=== PATIENT | female | born 1985 | race Two or more races ===

== ENCOUNTER 2020-08-16 14:32 | Outpatient (REF) | payer OTHER, SELFPAY ==
--- NOTE | ~2020-08-16 | XR_ITS ---
EXAMINATION: XR SACRUM AND COCCYX XR LUMBAR SPINE XR HIP, RIGHT XT FOOT, LEFT XR ELBOW, RT CLINICAL INFORMATION: Pain after fall. COMPARISON: None TECHNIQUE: Lumbar spine 3 views. Sacrum/coccyx 3 views. Right hip 2 views. Left foot 3 views. Right elbow 4 views. FINDINGS: SACRUM AND COCCYX: There is normal symmetry of bilateral SI joints. No bony abnormality seen. There is no fracture involving the sacrum or the coccyx. The soft tissues are normal. LUMBAR SPINE: There is normal lumbar lordosis. The vertebral heights and alignment is normal. There is loss of L4-L5 and L5-S1 disc levels with mild ventral spondylosis. No visible acute fracture, dislocation or lytic process seen. The paravertebral soft tissues are normal. RIGHT HIP: There is no visible acute fracture, dislocation, bony erosive changes or soft tissue swelling. LEFT FOOT: The ankle mortise and subtalar joints are normal. There is a small calcaneal heel and retrocalcaneal enthesophytes. The soft tissues are normal. RIGHT ELBOW: There is no visible acute fracture, dislocation or subluxation seen. No bony erosive changes. There is small enthesophytes along the anteromedial coronoid process of the ulna. The soft tissues are normal. XR/XR sacrum coccyx min 2V IMPRESSION: 1. Unremarkable sacrum and coccyx. 2. Mild degenerative disc changes at L4-L5 and L5-S1 disc levels. No acute fracture. Mild ventral spondylosis lumbar spine. 3. Unremarkable right hip exam. 4. Small calcaneal heel and retrocalcaneal enthesophytes, left foot. No acute fracture or dislocation. 5. Small bone fragments medial to the coronoid process of the ulna likely old injury. No acute fracture seen.
--- NOTE | ~2020-08-16 | XR_ITS ---
EXAMINATION: XR SACRUM AND COCCYX XR LUMBAR SPINE XR HIP, RIGHT XT FOOT, LEFT XR ELBOW, RT CLINICAL INFORMATION: Pain after fall. COMPARISON: None TECHNIQUE: Lumbar spine 3 views. Sacrum/coccyx 3 views. Right hip 2 views. Left foot 3 views. Right elbow 4 views. FINDINGS: SACRUM AND COCCYX: There is normal symmetry of bilateral SI joints. No bony abnormality seen. There is no fracture involving the sacrum or the coccyx. The soft tissues are normal. LUMBAR SPINE: There is normal lumbar lordosis. The vertebral heights and alignment is normal. There is loss of L4-L5 and L5-S1 disc levels with mild ventral spondylosis. No visible acute fracture, dislocation or lytic process seen. The paravertebral soft tissues are normal. RIGHT HIP: There is no visible acute fracture, dislocation, bony erosive changes or soft tissue swelling. LEFT FOOT: The ankle mortise and subtalar joints are normal. There is a small calcaneal heel and retrocalcaneal enthesophytes. The soft tissues are normal. RIGHT ELBOW: There is no visible acute fracture, dislocation or subluxation seen. No bony erosive changes. There is small enthesophytes along the anteromedial coronoid process of the ulna. The soft tissues are normal. XR/XR elbow RT min 3V IMPRESSION: 1. Unremarkable sacrum and coccyx. 2. Mild degenerative disc changes at L4-L5 and L5-S1 disc levels. No acute fracture. Mild ventral spondylosis lumbar spine. 3. Unremarkable right hip exam. 4. Small calcaneal heel and retrocalcaneal enthesophytes, left foot. No acute fracture or dislocation. 5. Small bone fragments medial to the coronoid process of the ulna likely old injury. No acute fracture seen.
--- NOTE | ~2020-08-16 | XR_ITS ---
EXAMINATION: XR SACRUM AND COCCYX XR LUMBAR SPINE XR HIP, RIGHT XT FOOT, LEFT XR ELBOW, RT CLINICAL INFORMATION: Pain after fall. COMPARISON: None TECHNIQUE: Lumbar spine 3 views. Sacrum/coccyx 3 views. Right hip 2 views. Left foot 3 views. Right elbow 4 views. FINDINGS: SACRUM AND COCCYX: There is normal symmetry of bilateral SI joints. No bony abnormality seen. There is no fracture involving the sacrum or the coccyx. The soft tissues are normal. LUMBAR SPINE: There is normal lumbar lordosis. The vertebral heights and alignment is normal. There is loss of L4-L5 and L5-S1 disc levels with mild ventral spondylosis. No visible acute fracture, dislocation or lytic process seen. The paravertebral soft tissues are normal. RIGHT HIP: There is no visible acute fracture, dislocation, bony erosive changes or soft tissue swelling. LEFT FOOT: The ankle mortise and subtalar joints are normal. There is a small calcaneal heel and retrocalcaneal enthesophytes. The soft tissues are normal. RIGHT ELBOW: There is no visible acute fracture, dislocation or subluxation seen. No bony erosive changes. There is small enthesophytes along the anteromedial coronoid process of the ulna. The soft tissues are normal. XR/XR hip RT min 2V IMPRESSION: 1. Unremarkable sacrum and coccyx. 2. Mild degenerative disc changes at L4-L5 and L5-S1 disc levels. No acute fracture. Mild ventral spondylosis lumbar spine. 3. Unremarkable right hip exam. 4. Small calcaneal heel and retrocalcaneal enthesophytes, left foot. No acute fracture or dislocation. 5. Small bone fragments medial to the coronoid process of the ulna likely old injury. No acute fracture seen.
--- NOTE | ~2020-08-16 | XR_ITS ---
EXAMINATION: XR SACRUM AND COCCYX XR LUMBAR SPINE XR HIP, RIGHT XT FOOT, LEFT XR ELBOW, RT CLINICAL INFORMATION: Pain after fall. COMPARISON: None TECHNIQUE: Lumbar spine 3 views. Sacrum/coccyx 3 views. Right hip 2 views. Left foot 3 views. Right elbow 4 views. FINDINGS: SACRUM AND COCCYX: There is normal symmetry of bilateral SI joints. No bony abnormality seen. There is no fracture involving the sacrum or the coccyx. The soft tissues are normal. LUMBAR SPINE: There is normal lumbar lordosis. The vertebral heights and alignment is normal. There is loss of L4-L5 and L5-S1 disc levels with mild ventral spondylosis. No visible acute fracture, dislocation or lytic process seen. The paravertebral soft tissues are normal. RIGHT HIP: There is no visible acute fracture, dislocation, bony erosive changes or soft tissue swelling. LEFT FOOT: The ankle mortise and subtalar joints are normal. There is a small calcaneal heel and retrocalcaneal enthesophytes. The soft tissues are normal. RIGHT ELBOW: There is no visible acute fracture, dislocation or subluxation seen. No bony erosive changes. There is small enthesophytes along the anteromedial coronoid process of the ulna. The soft tissues are normal. XR/XR lumbar spine 2-3V IMPRESSION: 1. Unremarkable sacrum and coccyx. 2. Mild degenerative disc changes at L4-L5 and L5-S1 disc levels. No acute fracture. Mild ventral spondylosis lumbar spine. 3. Unremarkable right hip exam. 4. Small calcaneal heel and retrocalcaneal enthesophytes, left foot. No acute fracture or dislocation. 5. Small bone fragments medial to the coronoid process of the ulna likely old injury. No acute fracture seen.
--- NOTE | ~2020-08-16 | XR_ITS ---
EXAMINATION: XR SACRUM AND COCCYX XR LUMBAR SPINE XR HIP, RIGHT XT FOOT, LEFT XR ELBOW, RT CLINICAL INFORMATION: Pain after fall. COMPARISON: None TECHNIQUE: Lumbar spine 3 views. Sacrum/coccyx 3 views. Right hip 2 views. Left foot 3 views. Right elbow 4 views. FINDINGS: SACRUM AND COCCYX: There is normal symmetry of bilateral SI joints. No bony abnormality seen. There is no fracture involving the sacrum or the coccyx. The soft tissues are normal. LUMBAR SPINE: There is normal lumbar lordosis. The vertebral heights and alignment is normal. There is loss of L4-L5 and L5-S1 disc levels with mild ventral spondylosis. No visible acute fracture, dislocation or lytic process seen. The paravertebral soft tissues are normal. RIGHT HIP: There is no visible acute fracture, dislocation, bony erosive changes or soft tissue swelling. LEFT FOOT: The ankle mortise and subtalar joints are normal. There is a small calcaneal heel and retrocalcaneal enthesophytes. The soft tissues are normal. RIGHT ELBOW: There is no visible acute fracture, dislocation or subluxation seen. No bony erosive changes. There is small enthesophytes along the anteromedial coronoid process of the ulna. The soft tissues are normal. XR/XR foot LT min 3V IMPRESSION: 1. Unremarkable sacrum and coccyx. 2. Mild degenerative disc changes at L4-L5 and L5-S1 disc levels. No acute fracture. Mild ventral spondylosis lumbar spine. 3. Unremarkable right hip exam. 4. Small calcaneal heel and retrocalcaneal enthesophytes, left foot. No acute fracture or dislocation. 5. Small bone fragments medial to the coronoid process of the ulna likely old injury. No acute fracture seen.
== END 2020-08-16 14:33 | disposition home or self-care (01) ==
LOC: HO.XRAY 14:32
PROVIDERS: Absent Provider Internal Medicine Geriatric Medicine; PCP Internal Medicine Geriatric Medicine; Visit Provider Nurse Practitioner
DX: M25.551 Pain in right hip (principal); M54.5 Low back pain; M25.521 Pain in right elbow; M79.672 Pain in left foot
CPT/HCPCS: 72100; 72220; 73080; 73502; 73630

== ENCOUNTER 2021-07-23 16:13 | Outpatient (REF) | payer OTHER, SELFPAY ==
--- NOTE | ~2021-07-23 | XR_ITS ---
EXAMINATION: XR SHOULDER, RIGHT CLINICAL INFORMATION: Pain COMPARISON: Previous x-ray from 2018 TECHNIQUE: AP external rotation, Grashey, scapular Y, and axillary views of the right shoulder. FINDINGS: The bones and soft tissues are normal. No fracture. Glenohumeral and acromioclavicular alignment is anatomic with normal joint space. No abnormal soft tissue calcifications. XR/XR shoulder RT min 2V IMPRESSION: Normal right shoulder.
--- NOTE | ~2021-07-23 | XR_ITS ---
EXAMINATION: XR LUMBOSACRAL SPINE CLINICAL INFORMATION: Pain COMPARISON: Previous x-ray July 2020 TECHNIQUE: Three views of the lumbosacral spine. FINDINGS: Bone alignment is normal. No fracture or dislocation is seen. There is degenerative disc disease at L1-L2, L4-L5 and L5-S1. Paraspinal soft tissues are unremarkable. XR/XR lumbar spine 2-3V IMPRESSION: Multilevel degenerative disc disease.
--- NOTE | ~2021-07-23 | XR_ITS ---
EXAMINATION: BILATERAL FOOT X-RAY CLINICAL INFORMATION: Pain COMPARISON: Left ankle x-ray September 2012 TECHNIQUE: 3 views each foot FINDINGS: Bone alignment is normal. No acute fracture or dislocation is seen. The joint spaces are normal. There are bilateral calcaneal spurs. XR/XR foot RT min 3V IMPRESSION: Bilateral calcaneal spurs.
--- NOTE | ~2021-07-23 | XR_ITS ---
EXAMINATION: BILATERAL FOOT X-RAY CLINICAL INFORMATION: Pain COMPARISON: Left ankle x-ray September 2012 TECHNIQUE: 3 views each foot FINDINGS: Bone alignment is normal. No acute fracture or dislocation is seen. The joint spaces are normal. There are bilateral calcaneal spurs. XR/XR foot LT min 3V IMPRESSION: Bilateral calcaneal spurs.
== END 2021-07-23 16:14 | disposition home or self-care (01) ==
LOC: HO.XRAY 16:13
PROVIDERS: PCP Internal Medicine Geriatric Medicine; Visit Provider Internal Medicine Geriatric Medicine
DX: M25.511 Pain in right shoulder (principal); M79.671 Pain in right foot; M79.672 Pain in left foot; M79.605 Pain in left leg; M54.50 Low back pain, unspecified
CPT/HCPCS: 72100; 73030; 73630

== ENCOUNTER 2021-08-30 12:36 | Emergency (ER) | payer OTHER, SELFPAY ==
--- NOTE | ~2021-08-30 | XR_ITS ---
EXAMINATION: XR CHEST CLINICAL INFORMATION: Asthma COMPARISON: 12/30/2016 TECHNIQUE: Frontal view of the chest was obtained. FINDINGS: No acute finding. No obvious failure or infiltrate. There is no effusion. Lung munoz are grossly clear. The cardiac silhouette is within normal limits. No effusion. XR/XR chest 1V IMPRESSION: No acute finding
[2021-08-30 12:46] VITALS: BP 140/79; PULSE 73; RESP 18; TEMP 36.5; O2SAT 97; BMI 47.9
--- NOTE | 2021-08-30 13:46 | ED_ITS ---
HPI - URI/Sore Throat General Chief Complaint: Upper Respiratory Symptoms Stated Complaint: covid + body aches Time Seen by Provider: 08/30/21 13:46 Source: patient Mode of arrival: ambulatory Limitations: no limitations History of Present Illness HPI Narrative: 35-year-old female who tested COVID positive 2 days ago on August 28, presents for cough, headache, nausea, dizziness, diarrhea, sore throat, lost of taste and smell. Her symptoms started 4 days ago, on August 26. Patient has been using her nebulizer, she last used it 2 hours ago. Past medical history includes fibromyalgia, asthma, obesity, gastric bypass Related Data Previous Rx's Medication Instructions Recorded dexamethasone 6 mg tablet 6 mg PO DAILY 5 days #5 tabs 08/30/21 Allergies Allergy/AdvReac Type Severity Reaction Status Date / Time lactose Allergy Unknown Gastrointestinal Verified 08/30/21 12:45 Upset No Known Allergies Allergy Unverified 12/08/19 16:43 [No Known Allergies*] latex Allergy Unknown Gastrointestinal Uncoded 08/30/21 12:45 Upset Review of Systems Constitutional: Constitutional: Reports body ache(s), Reports chills, Reports fatigue, Denies fever(s), Reports headache(s), Denies malaise and Reports weakness Eyes: Eyes: Denies blurry vision and Denies diplopia ENT: Denies vertigo, Denies dizziness, Denies otalgia, Reports headache(s), Denies mouth pain, Denies post nasal drip, Denies sinus pain, Denies sinus pressure, Denies sore throat and Denies throat swelling Cardiovascular: Cardiovascular: Denies chest pain, Denies syncope, Denies leg edema, Denies lightheadedness, Denies Loss of Consciousness, Denies palpitations and Denies dyspnea Respiratory: Respiratory: Denies chest congestion, Denies cough and Denies dyspnea Gastrointestinal: Gastrointestinal: Denies abdominal pain, Denies hematochezia, Denies constipation, Reports diarrhea, Reports nausea and Denies vomiting Musculoskeletal: Musculoskeletal: Reports no additional musculoskeletal complaints Neurologic: Denies confusion, Denies vertigo, Denies dizziness, Denies syncope, Reports headache(s) and Reports weakness Psychiatric: Psychiatric: Denies anxiety, Denies confusion and Denies depression Endocrine: Endocrine: Reports fatigue and Denies palpitations Allergic/Immunologic: Allergic/Immunologic: Denies throat swelling PMFSH Social History Social History Advance Directives: Yes Advance Directives Information Provided: Yes Advance Directives on File: No Physical Exam Vital Signs: Vital Signs: Last Vital Signs Temp 97.7 F 08/30/21 12:46 Pulse 73 08/30/21 12:46 Resp 18 08/30/21 12:46 BP 140/79 H 08/30/21 12:46 Pulse Ox 97 08/30/21 12:46 O2 Del Method 08/30/21 12:46 BMI result Body Mass Index 47.9 Const: General: No confusion Nutritional Appearance: well nourished Orientation/consciousness: No confusion Limitations: no limitations HEENT: Head: Yes normal to inspection, Yes normocephalic and Yes atraumatic Ears: hearing grossly normal bilaterally, external ears normal, TM's normal bilaterally and EAC's normal General nose exam: Normal external nose present Face and sinus: Yes normal facial exam and Yes sinuses nontender Mouth: Normal oral and palatal mucosa present Throat: Yes posterior oropharynx normal Eyes: Conjunctivae: conjunctivae normal Pupils: Equal, round and reactive pupils present EOM: EOMs intact bilaterally Neck: Neck: Yes full ROM, Yes no lymphadenopathy and Yes supple Resp: Effort & Inspection: normal respiratory effort and able to speak in complete sentences Auscultation: no crackles, no rales, no rhonchi, wheezes and diminished lung sounds Cardio: Rate: regular rate Rhythm: regular rhythm Heart sounds: S1 normal heart sound present and S2 normal heart sound present GI: Inspection: Yes normal to inspection Palpation (GI): Soft to palpation, nontender, no guarding and not rigid Percussion: Yes normal to percussion Auscultation: normal bowel sounds Skin: General skin exam: no rashes or lesions noted Neuro: General: No confusion Cranial nerves: Yes Equal, round and reactive pupils present Extrem: General: Yes normal to inspection and Yes full ROM Psych: Appearance: grossly normal Affect: normal affect Attitude: cooperative Thought process: Normal thought process present Course Course Course Narrative: 35-year-old female presents after testing COVID positive at home for worsening COVID symptoms. On exam, patient has stable vitals, is satting 97% on room air respiration rate 18, is afebrile. Patient has diffuse wheezes on expiration after having a nebulizer treatment just 2 hours prior chest x-ray is negative referred patient to [facility] for monoclonal antibody treatment, prescribe dexamethasone and counseled patient to continue using her nebulizer every 4 hours, push fluids, Tylenol gave return precautions of worsening shortness of breath, chest pain, worsening symptoms FINDINGS: No acute finding. No obvious failure or infiltrate. There is no effusion. Lung munoz are grossly clear. The cardiac silhouette is within normal limits. No effusion. XR/XR chest 1V IMPRESSION: No acute finding ? Discharge Plan Discharge Clinical Impression: COVID-19, Acute bronchospasm Patient Disposition: Home, Self-Care Instructions: Bronchospasm (ED), COVID-19 (Coronavirus Disease 2019) (ED) Additional Instructions: I have prescribed dexamethasone to her pharmacy, please fill it and start it today. I have alsoreferred you to [email or web address], a company that does monoclonal antibody infusions for COVID. They should be calling you this afternoon because we faxed a form to them with your information. However if you do not hear from them by 16:00 today I want you to call them at [facility] [phone] please continue to use your albuterol into your nebulizer every 4 hours while you are awake. Please push fluids and take Tylenol. Please return to emergency room if you have chest pain, shortness of breath, or any other new or concerning symptoms Prescriptions: New dexamethasone 6 mg tablet 6 mg PO DAILY 5 Days Qty: 5 0RF Interventions: ED Discharge Assessment Last Done: 08/30/21 14:18 Discharge Date/Time: 08/30/21 14:20
== END 2021-08-30 14:20 | disposition home or self-care (01) ==
PROVIDERS: Emergency Provider Emergency Medicine; PCP Internal Medicine Geriatric Medicine
DX: U07.1 COVID-19 (principal); J98.01 Acute bronchospasm
CPT/HCPCS: 71045; 99283

== ENCOUNTER 2021-10-29 13:53 | Outpatient (REF) | payer OTHER, SELFPAY ==
--- NOTE | ~2021-10-29 | XR_ITS ---
EXAMINATION: XR CHEST CLINICAL INFORMATION: History COVID. Moderate persistent asthma. COMPARISON: Chest radiographs 08/30/2021, 12/30/2016 TECHNIQUE: 2 views of the chest were obtained. FINDINGS: No hyperinflation, airspace consolidation, groundglass opacity. No coarsening of the bronchiolar markings. The costophrenic sulci are clear. The heart is normal in size. The hilar and mediastinal contours and bony structures are unremarkable. XR/XR chest 2V IMPRESSION: Unremarkable examination.
--- NOTE | ~2021-10-29 | XR_ITS ---
EXAMINATION: XR LUMBOSACRAL SPINE CLINICAL INFORMATION: Radiculopathy COMPARISON: Radiographs lumbar spine 07/23/2021 TECHNIQUE: Three views of the lumbosacral spine. FINDINGS: Normal lumbar segmentation with 5 nonrib-bearing lumbar vertebrae of normal height and normal lumbar lordosis. There is no lumbar vertebral compression, spondylolisthesis, destructive process. Again, there are degenerative disc changes L1-L2, L4-L5, and L5-S1 with disc narrowing and vertebral spurring. No erosive change. The SI joints and visualized sacrum are unremarkable. XR/XR lumbar spine 2-3V IMPRESSION: -Degenerative disc changes L1-L2, L4-L5, and L5-S1 similar to prior exam 07/23/2021. -No vertebral compression, spondylolisthesis, or destructive process.
== END 2021-10-29 13:54 | disposition home or self-care (01) ==
LOC: HO.XRAY 13:53
PROVIDERS: PCP Internal Medicine Geriatric Medicine; Visit Provider Internal Medicine Geriatric Medicine
DX: M54.10 Radiculopathy, site unspecified (principal); J45.40 Moderate persistent asthma, uncomplicated; Z86.16 Personal history of COVID-19
CPT/HCPCS: 71046; 72100

== ENCOUNTER 2021-11-29 16:16 | Emergency (ER) | payer OTHER, SELFPAY ==
[2021-11-29 16:24] VITALS: BP 109/42; PULSE 68; RESP 18; TEMP 36.6; O2SAT 99; BMI 48.0
--- NOTE | 2021-11-29 19:01 | ED.GENADULT ---
HPI - General Adult General Chief complaint: Back Pain/Injury Stated complaint: back/neck pain, multiple complaint Time Seen by Provider: 11/29/21 19:00 Source: patient Mode of arrival: ambulatory Limitations: no limitations History of Present Illness HPI narrative: Patient is a 36 year old female presenting to the emergency department today with upper back pain that radiates from her neck and into her left shoulder. Patient states that she was moving boxes yesterday and now she is having this pain today. Patient states that she has sciatic back pain as well but that's normal for her. Patient denies any dizziness, lightheadedness, abdominal pain, nausea, vomiting, fever, chills, blurry vision, double vision, loss of vision, chest pain, difficulty breathing, shortness of breath, night sweats, pain with urination, increased urinary frequency, increased urinary urgency, blood in her urine or stool, syncope or a near syncopal episode, recent trauma or falls, bowel incontinence, bladder incontinence, bowel retention, bladder retention, or any other complaints at this time. Onset (ago): hour(s) Location: neck, back, left and upper extremity Radiation: back and extremity Severity: mild Severity scale (1-10): 2 Quality: aching Pain Consistency: intermittent Relieving factors: none Exacerbating factors: movement Associated symptoms: denies other symptoms Treatments prior to arrival: none Related Data Previous Rx's Medication Instructions Recorded dexamethasone 6 mg tablet 6 mg PO DAILY 5 days #5 tabs 08/30/21 cyclobenzaprine 5 mg tablet 5 mg PO TID PRN cervical 11/29/21 radiculopathy 7 days #21 tabs Allergies Allergy/AdvReac Type Severity Reaction Status Date / Time lactose Allergy Unknown Gastrointestinal Verified 08/30/21 12:45 Upset No Known Allergies Allergy Unverified 12/08/19 16:43 [No Known Allergies*] latex Allergy Unknown Gastrointestinal Uncoded 08/30/21 12:45 Upset Review of Systems Constitutional: Constitutional: Reports no additional constitutional complaints, Denies chills, Denies fever(s) and Denies night sweats Eyes: Eyes: Reports no additional eye complaints, Denies blurry vision, Denies change in vision, Denies diplopia, Denies eye discharge, Denies loss of vision and Denies eye pain ENT: Denies dizziness and Reports neck pain Cardiovascular: Cardiovascular: Reports no additional cardiovascular complaints, Denies chest pain, Denies lightheadedness, Denies Loss of Consciousness and Denies dyspnea Respiratory: Respiratory: Reports no additional respiratory complaints and Denies dyspnea Gastrointestinal: Gastrointestinal: Reports no additional gastrointestinal complaints, Denies abdominal pain, Denies melena, Denies hematochezia, Denies change in bowel habits and Denies change in stool character Genitourinary: Genitourinary: Denies hematuria, Denies urinary frequency, Denies dysuria, Denies urinary incontinence, Denies urinary hesitancy and Denies urinary urgency Musculoskeletal: Musculoskeletal: Reports no additional musculoskeletal complaints, Reports back pain, Reports neck pain, Denies numbness and Denies tingling Comments: left shoulder pain Neurologic: Denies dizziness, Denies loss of vision, Denies numbness and Denies tingling Psychiatric: Psychiatric: Reports no additional psychiatric complaints Endocrine: Endocrine: Reports no additional endocrine complaints Hematologic/Lymphatic: Hematologic/Lymphatic: Reports no additional hematologic/lymphatic complaints Allergic/Immunologic: Allergic/Immunologic: Reports no additional allergic/immunologic complaints [facility] Past Medical History Attestation statement: The following information was validated with the patient. Source: old records reviewed Social History Social History Advance Directives: No Advance Directives Information Provided: No Physical Exam ED Vital Signs: Vital Signs - 24 hr 11/29/21 16:24 Temperature 97.8 F Pulse Rate 68 Respiratory Rate 18 Blood Pressure 109/42 L Pulse Oximetry 99 Oxygen Delivery Method Room Air BMI result Body Mass Index 48.0 Const General: cooperative, no acute distress, alert and awake Nutritional Appearance: well nourished Orientation/consciousness: patient oriented x3 Limitations: no limitations [facility] Head: Yes normal to inspection and Yes atraumatic Ears: hearing grossly normal bilaterally and external ears normal General nose exam: Normal external nose present, no nasal discharge noted and no epistaxis Face and sinus: Yes normal facial exam, No abrasion and No laceration Mouth: Normal oral and palatal mucosa present, no drooling and no muffled voice Eyes General: appearance normal, both eyes and all related structures Periorbital: periorbital findings normal Eyelids: Yes eyelids normal Conjunctivae: conjunctivae normal Pupils: Equal, round and reactive pupils present EOM: EOMs intact bilaterally Neck Neck: Yes normal visual inspection, Yes full ROM and Yes no lymphadenopathy Chest Chest palpation & inspection: normal inspection of the chest Resp Effort & Inspection: normal respiratory effort and able to speak in complete sentences Auscultation: clear to auscultation bilaterally Cardio Rate: regular rate Rhythm: regular rhythm GI Inspection: Yes normal to inspection Neuro General: patient oriented x3 and moves all extremities Cranial nerves: Yes Equal, round and reactive pupils present Cognition (Neuro): normal cognition Motor exam (neuro): 5/5 motor strength present throughout Sensory Exam: Normal double simultaneous stimulation for sensation Coordination: [id number] test normal Extrem General: Yes normal to inspection, Yes full ROM and Yes capillary refill normal Psych Appearance: grossly normal Mental Status: mental status grossly normal Affect: normal affect Attitude: cooperative Thought process: Normal thought process present Thought content: Normal thought content present Insight: Good insight present (Psych) Medical Decision Making MDM Narrative Medical decision making narrative: Patient is a 36 year old female presenting to the emergency department today with upper back pain, neck pain, and left shoulder pain. Patient's physical exam was unremarkable. Patient's clinical presentation is most consistent with cervical radiculopathy. I explained my physical exam findings as well as all test results to the patient. I answered all questions asked by the patient. Patient received PO Flexeril, PO Ativan, and IM Toradol which she stated helped her symptoms significantly. I stressed the importance of the patient taking her medication as prescribed. I stressed the importance of the patient following up with her primary care provider and a corporate real estate specialist. I stressed the importance of the patient returning to the emergency department immediately if her symptoms were to worsen or if she were to develop any dizziness, shortness of breath, difficulty breathing, chest pain, blurry vision, loss of vision, nausea, vomiting, abdominal pain, fever, chills, back pain, or any other complaints. Patient verbalized agreement and understanding with this treatment plan and discharge. Differential Diagnosis Differential Diagnosis: cervical radiculopathy Medical Records Medical records reviewed: Yes I reviewed the patient's medical records. Discharge Plan Discharge Clinical Impression: Cervical radiculopathy Patient Disposition: Home, Self-Care Instructions: Cervical Radiculopathy (ED) Additional Instructions: Follow up with your primary care provider and a corporate real estate specialist. Return to the emergency department immediately if your symptoms worsen or if you develop any dizziness, shortness of breath, difficulty breathing, chest pain, blurry vision, loss of vision, nausea, vomiting, abdominal pain, fever, chills, back pain, or any other complaints. Prescriptions: New cyclobenzaprine 5 mg tablet 5 mg PO TID PRN (Reason: cervical radiculopathy) 7 Days Qty: 21 0RF No Action dexamethasone 6 mg tablet 6 mg PO DAILY 5 Days Qty: 5 0RF Referrals: [facility] [Provider Group] Name,MD Tucker [Primary Care Provider] - Print Language: Japanese
[2021-11-29] MEDS: Cyclobenzaprine HCl 5 MG TABLET PO (19:42)
[2021-11-29] MEDS: LORazepam 1 MG TABLET 2 MG PO (19:43)
[2021-11-29] MEDS: Ketorolac Tromethamine 15 MG/ML VIAL IM (19:43)
== END 2021-11-29 19:54 | disposition home or self-care (01) ==
PROVIDERS: Emergency Provider Emergency Medicine; PCP Internal Medicine Geriatric Medicine
DX: M54.12 Radiculopathy, cervical region (principal); M54.50 Low back pain, unspecified; M54.2 Cervicalgia; Z79.899 Other long term (current) drug therapy
CPT/HCPCS: 96372; 99283; 99284; J1885

== ENCOUNTER 2021-12-24 07:47 | Emergency (ER) | payer OTHER, SELFPAY ==
--- NOTE | ~2021-12-24 | XR_ITS ---
EXAMINATION: XR CHEST CLINICAL INFORMATION: Left scapular pain COMPARISON: October 2021. TECHNIQUE: 2 views of the chest were obtained. FINDINGS: No significant abnormality is noted involving the heart, lungs, mediastinum, bony thorax or soft tissues. Thoracic spondylitic change and degenerative disc space narrowing again noted. XR/XR chest 2V IMPRESSION: Unremarkable examination. No significant change since previous examination.
[2021-12-24 08:05] VITALS: BP 152/89; PULSE 78; RESP 18; TEMP 36.3; O2SAT 99; BMI 48.0
--- OUTSIDE RECORDS SUMMARY | 2021-12-24 08:46 | XMS_ITS | Continuity of Care Document ---
:1985 Author Organization [facility] Address [address] [place] [address]- Care Team Providers Name Role Phone Name Tucker PEARSON Primary Care Physician [place] [facility] [place] - 05/24/[address] [address]- [facility] Encounter Diagnosis Right knee sprain (Final) - 05/24/19 Right ankle sprain (Final) - 05/24/19 Discharge Disposition: A-D/C Home Attending Physician: Alireza Nicolas MD Admitting Physician: Alireza Nicolas MD Referring Physician: Not on Staff, Referring MD Allergies, Adverse Reactions, Alerts Substance Reaction Severity Status NKA Active Medications Acetaminophen = 325 mg, By Mouth, 0 Refills, Maintenance, 11/07/15 13:37:08 Start Date: 11/07/15 Status: OrderedAlbuterol 0 Refills, Maintenance Start Date: 04/24/11 Status: OrderedBetamethasone Dipropionate 0.05% Topical Topically, 2 times a day, 0 Refills, Maintenance Start Date: 11/07/15 Status: Orderedcalcium and vitamin D combination 600 mg-200 u oral tablet 1 tablet, By Mouth, 2 times a day, 0 Refills, Maintenance, 11/07/15 13:38:57 Start Date: 11/07/15 Status: OrderedFerrous Sulfate ER 325 mgs, By Mouth, Daily, Refills 0, Maintenance, 11/07/15 13:39:31 Start Date: 11/07/15 Status: OrderedFlovent HFA 220 mcg/inh inhalation aerosol 1 puffs, Inhalation, 2 times a day, # 12 Gm, 0 Refills, Maintenance, 11/07/15 13:40:31, Aerosol Start Date: 11/07/15 Status: OrderedFolic Acid = 800 mcg, By Mouth, Daily, 0 Refills, Maintenance, 11/07/15 13:41:07 Start Date: 11/07/15 Status: OrderedHydroCORTisone 2.5% Topical Topically, 2 times a day, 0 Refills, Maintenance Start Date: 11/07/15 Status: Orderedibuprofen 600 mg oral tablet 600 mg, 1, tablet, By Mouth, Every 6 to 8 hours, PRN, with food or milk, # 24 tablet, Refills 0, Tot. Refills 0, Maintenance, Pain , Moderate, 05/24/19 19:51:00 EST, Route to Pharmacy Electronically, [facility]/pharmacy #[id number], 164, cm, 05/24/19 18:32:00 EST,... Start Date: 05/24/19 Status: Orderedphentermine 15 mg oral capsule 1 capsule = 15 mg, By Mouth, Daily in AM, 0 Refills, Maintenance, 01/04/18 9:13:25 EDT Start Date: 01/04/18 Status: OrderedPriLOSEC OTC 20 mg oral delayed release tablet 1 tablet = 20 mg, By Mouth, 2 times a day, # 60 tablet, 0 Refills, Maintenance, 08/03/13 6:56:51, ECTablet Start Date: 08/03/13 Status: Ordered Problem List Condition Effective Dates Status Health Status Informant Anxiety and depression per Active pt.(Confirmed) Asthma(Confirmed) Active Depression per pt.(Confirmed) Active Depression(Confirmed) Active Diabetes type 2, controlled(Confirmed) Active Fatty liver(Confirmed) Active Morbid obesity(Confirmed) Active Reflux per pt.(Confirmed) Active Sleep apnea(Confirmed) Active Results Radiology Reports Exam Date Time Procedure Performing Provider Status 05/24/19 7:35 PM Knee 1 or 2 Views Right Hudson Martines; Auth (Ve rified) Notes:(Knee 1 or 2 Views Right) Reason For Exam: with Pain;TraumaRESULT: Knee 1 or 2 Views Right Knee 1 or 2 Views Right, 3 views Indication: Pain after trauma. COMPARISON: None. FINDINGS: Mild osteoarthritic changes of the lateral compartment. Deformity of the proximal fibular diaphysis consistent with remote injury. No definite acute fracture. No malalignment. IMPRESSION: No acute osseous injury identified. WSN: [id number] Dictated By: Christiano Olsen MD Dictated Date/Time: 05/24/19 7:41 pm Reviewed By: Christiano Olsen MD Signed By: Christiano Olsen MD Signed Date/Time: 05/24/19 7:41 pm Transcribed By: REJI Transcribed Date/Time: 05/24/19 7:39 pm Exam Date Time Procedure Performing Provider Status 05/24/19 7:35 PM Ankle Min 3 Views Right Hudson Martines; Auth (Ve rified) Notes:(Ankle Min 3 Views Right) Reason For Exam: with Pain;TraumaRESULT: Ankle Min 3 Views Right Ankle Min 3 Views Right Indication: Pain after trauma. COMPARISON: None. FINDINGS: Normal alignment. Soft tissue swelling overlying the lateral malleolus. The lateral view demonstrates a few well-corticated ossific densities which do not appear acute. No definite acute fracture. IMPRESSION: Soft tissue swelling without definite acute fracture. WSN: [id number] Dictated By: Christiano Olsen MD Dictated Date/Time: 05/24/19 7:38 pm Reviewed By: Christiano Olsen MD Signed By: Christiano Olsen MD Signed Date/Time: 05/24/19 7:38 pm Transcribed By: REJI Transcribed Date/Time: 05/24/19 7:37 pm Vital Signs Most recent to oldest [Reference Range]: 1 2 Height 164 cm 164 cm (05/24/19 6:32 PM) (05/24/19 6:26 PM) Oxygen Saturation [94-100 %] 98 % (05/24/19 6:32 PM) Pulse Rate [55-90 bpm] 88 bpm (05/24/19 6:32 PM) Blood Pressure [90-138/55-84 mm Hg] 124/70 mm Hg (05/24/19 6:32 PM) Respiratory Rate [16-30 br/min] 18 br/min (05/24/19 6:32 PM) Temperature [96.8-100.4 DegF] 98.0 DegF (05/24/19 6:32 PM) Mode of Delivery (Oxygen) Room air (05/24/19 6:32 PM) Temperature Route Oral (05/24/19 6:32 PM) Social History Social History Type Response Smoking Status Former smoker; Other: patien t states she quit smoking in 2011; entered on: 03/13/15 Sex
--- OUTSIDE RECORDS SUMMARY | 2021-12-24 08:46 | XMS_ITS | Continuity of Care Document ---
:1985 Author Organization [facility] Address Unavailable , Care Team Providers Name Role Phone Name Tucker PEARSON Primary Care Physician Encounter [facility] [place] Date(s): 02/06/21 - 03/08/21 [facility] Allergies, Adverse Reactions, Alerts Substance Reaction Severity [...] 0 Refills, Maintenance Start Date: 11/07/15 Status: OrderedhydrOXYzine hydrochloride 10 mg oral tablet 2 tablet = 20 mg, By Mouth, 4 times a day, PRN for anxiety, # 80 tablet, 0 Refills, Maintenance, 05/27/19 9:36:00 EST, Tablet Start Date: 05/27/19 Status: Orderedibuprofen 600 mg oral tablet 600 mg, 1, tablet, By Mouth, Every 6 to 8 hours, PRN, with food or milk, # 24 tablet, Refills 0, Tot. Refills 0, Maintenance, Pain , Moderate, 05/24/19 19:51:00 EST, Route to Pharmacy Electronically, [facility]/pharmacy #[id number], 164, cm, 05/24/19 18:32:00 EST,... Start [...] 08/03/13 6:56:51, ECTablet Start Date: 08/03/13 Status: OrderedZoloft 100 mg oral tablet 2 tablet = 200 mg, By Mouth, Daily, # 30 tablet, 0 Refills, Maintenance, 05/27/19 9:35:00 EST, Tablet Start Date: 05/27/19 Status: Ordered Problem List Condition Effective Dates Status Health Status Informant Anxiety and depression per Active pt.(Confirmed) Asthma(Confirmed) Active Morbid obesity with BMI of 40.0-44.9, Active adult(Confirmed) Depression per pt.(Confirmed) Active Depression(Confirmed) Active Diabetes type 2, controlled(Confirmed) Active Fatty liver(Confirmed) Active S/P gastric bypass(Confirmed) Active Reflux per pt.(Confirmed) Active Sleep apnea(Confirmed) Active Social History Social History Type Response Smoking Status Former smoker; Other: nimisha fish states she quit smoking in 2011; entered on: 03/13/15 Sex
--- OUTSIDE RECORDS SUMMARY | 2021-12-24 08:46 | XMS_ITS | Continuity of Care Document ---
:1985 Author Organization [facility] Address [address] [place] [address] Drive [address] [place] [address]- Care Team Providers Name Role Phone Name Tucker PEARSON Primary Care Physician [place] [facility] [id number] Date(s): 02/29/20 - 03/07/[address] [place], [place] [address] Attending Physician: Rui JARAMILLO,RD,LDN, Lyudmila Vann Allergies, Adverse Reactions, Alerts Substance Reaction Severity [...] 05/24/19 19:51:00 EST, Route to Pharmacy Electronically, [facility]/pharmacy #[id number], 164, cm, 05/24/19 18:32:00 EST,... Start [...]
--- OUTSIDE RECORDS SUMMARY | 2021-12-24 08:46 | XMS_ITS | Continuity of Care Document ---
:1985 Author Organization [facility] Address [address] [place] [address] Drive [address] [place] [address]- Care Team Providers Name Role Phone Name Tucker PEARSON Primary Care Physician Encounter [facility] [place] Date(s): 05/27/19 - 06/03/[address] [place] [address]- [facility] Encounter Diagnosis Morbid obesity with BMI of 40.0-44.9, adult (Discharge Diagnosis) - 05/27/19 S/P gastric bypass (Discharge Diagnosis) - 05/27/19 Attending Physician: London Jj Referring Physician: Name Tucker PEARSON Allergies, Adverse Reactions, Alerts Substance Reaction Severity [...] 05/24/19 19:51:00 EST, Route to Pharmacy Electronically, [facility]/pharmacy #[id number], 164, cm, 05/24/19 18:32:00 EST,... [...] Reflux per pt.(Confirmed) Active Sleep apnea(Confirmed) Active Diagnosis Diagnosis Type Effective Dates Health Status Clinical In formant Service S/P gastric Discharge 05/27/19 bypass Diagnosis Morbid obesity Discharge 05/27/19 with BMI of Diagnosis 40.0-44.9, adult Vital Signs Most recent to oldest [Reference Range]: 1 Height 164 cm (05/27/19 9:27 AM) Weight 120.2 kg (05/27/19 9:27 AM) Pulse Rate [55-90 bpm] 71 bpm (05/27/19 9:27 AM) Body Mass Index [18.5-24.99] 44.69 *>HHI* (05/27/19 9:27 AM) Blood Pressure [90-138/55-84 mm Hg] 123/78 mm Hg (05/27/19 9:27 AM) Respiratory Rate [16-30 br/min] 15 br/min *L* (05/27/19 9:27 AM) Temperature [96.8-100.4 DegF] 97.6 DegF (05/27/19 9:27 AM) Blood pressure sites Arm, left (05/27/19 9:27 AM) Temperature Route Temporal (05/27/19 9:27 AM) Weight Obtained Via Standing scale (05/27/19 9:27 AM) Social History Social History Type Response Smoking Status Former smoker; Other: nimisha t states she quit smoking in 2011; entered on: 03/13/15 Sex
--- OUTSIDE RECORDS SUMMARY | 2021-12-24 08:46 | XMS_ITS | Continuity of Care Document ---
:1985 Author Organization [facility] Address Unavailable , Care Team Providers Name Role Phone Name Tucker PEARSON Primary Care Physician Encounter [facility] [place] Date(s): 02/06/21 - 03/08/21 [facility] Attending Physician: Rigoberto Limon Admitting Physician: Rigoberto Limon Referring Physician: Rigoberto Limon Allergies, Adverse Reactions, Alerts Substance Reaction Severity [...] 05/24/19 19:51:00 EST, Route to Pharmacy Electronically, [facility]/pharmacy #[id number], 164, cm, 05/24/19 18:32:00 EST,... Start [...]
--- OUTSIDE RECORDS SUMMARY | 2021-12-24 08:46 | XMS_ITS | Continuity of Care Document ---
:1985 Author Organization [facility] Address [address] [place] [address] Drive [address] [place] [address]- Care Team Providers Name Role Phone Name Tucker PEARSON Primary Care Physician Encounter [facility] Date(s): 06/08/19 - 10/06/[address] [place] [address]- [facility] Attending Physician: London Jj Referring Physician: Name [...] 05/24/19 19:51:00 EST, Route to Pharmacy Electronically, [facility]/pharmacy #[id number], 164, cm, 05/24/19 18:32:00 EST,... [...]
--- OUTSIDE RECORDS SUMMARY | 2021-12-24 08:46 | XMS_ITS | Continuity of Care Document ---
:1985 Author Organization [facility] Address [address] [place] [address] Drive [address] [place] [address]- Care Team Providers Name Role Phone Name Tucker PERASON Primary Care Physician Encounter [facility] [place] Date(s): 11/29/19 - 12/06/[address] [place] [address]- [facility] Attending Physician: Rui JARAMILLO,RD,LDN, Lyudmila Vann Allergies, [...] 05/24/19 19:51:00 EST, Route to Pharmacy Electronically, [facility]/pharmacy #[id number], 164, cm, 05/24/19 18:32:00 EST,... Start [...]
--- OUTSIDE RECORDS SUMMARY | 2021-12-24 08:46 | XMS_ITS | Continuity of Care Document ---
:1985 Author Organization [facility] Address [address] [place] [address] Drive [address] [place] [address]- Care Team Providers Name Role Phone Name Tucker PEARSON Primary Care Physician [place] [facility] [place] 05/27/19 - 06/03/[address] [place] [address]- [facility] Attending Physician: Rui JARAMILLO,RD,LDN, Lyudmila Vann Referring Physician: Name Tucker PEARSON Allergies, Adverse [...] 05/24/19 19:51:00 EST, Route to Pharmacy Electronically, [facility]/pharmacy #[id number], 164, cm, 05/24/19 18:32:00 EST,... Start [...]
--- OUTSIDE RECORDS SUMMARY | 2021-12-24 08:47 | XMS_ITS | Continuity of Care Document ---
:1985 Author Organization [address] [place] [address]- Care Team Providers Name Role Phone Name Tucker PEARSON Primary Care Physician Encounter [facility] [place] Date(s): 08/01/20 - 08/08/[address] [place] [id number] Attending Physician: Rui JARAMILLO,RD,RONALDON, Lyudmila Vann Allergies, Adverse Reactions, Alerts Substance [...]
--- OUTSIDE RECORDS SUMMARY | 2021-12-24 08:47 | XMS_ITS | Continuity of Care Document ---
:1985 Author Organization [facility] Address Unavailable , Care Team Providers Name Role Phone Name Tucker PEARSON Primary Care Physician En[place] [facility] [place] R [id number] Date(s): 02/06/21 - 02/13/21 [facility] Attending Physician: Rui MS,RD,RONALDON, Lyudmila Vann Allergies, Adverse Reactions, Alerts Substance [...] EST, Route to Pharmacy Electronically, [facility]/pharmacy #[id number], 164, cm, 05/24/19 18:32:00 [...]
--- OUTSIDE RECORDS SUMMARY | 2021-12-24 08:47 | XMS_ITS | Continuity of Care Document ---
:1985 Author Organization [facility] Address [address] [place] [address] Drive [address] [place] [address]- Care Team Providers Name Role Phone Name Tucker PEARSON Primary Care Physician Encounter [facility] [place] Date(s): 09/06/19 - 09/13/[address] [place] [address]- [facility] Attending Physician: Rui MS,RD,LDN, Lyudmila Vann Allergies, Adverse Reactions, Alerts Substance [...] 05/24/19 19:51:00 EST, Route to Pharmacy Electronically, [facility]/pharmacy #[id number], 164, cm, 05/24/19 18:32:00 EST,... [...]
--- NOTE | 2021-12-24 08:52 | PC.NURSE ---
Pt ambulates with brisk steady gait, reports neck and upper back pain that is worse when she elevates arms. brought to tx area.
--- NOTE | 2021-12-24 08:53 | ED.NECK ---
HPI - Neck Pain/Injury General Chief Complaint: Neck Pain/Injury Stated Complaint: sob, chest pain, cant lift arm w/o pain Time Seen by Provider: 12/24/21 08:07 Source: patient Mode of arrival: ambulatory Limitations: no limitations Related Data Previous Rx's Medication Instructions Recorded dexamethasone 6 mg tablet 6 mg PO DAILY 5 days #5 tabs 08/30/21 cyclobenzaprine 5 mg tablet 5 mg PO TID PRN cervical 11/29/21 radiculopathy 7 days #21 tabs Allergies Allergy/AdvReac Type Severity Reaction Status Date / Time No Known Allergies Allergy Unverified 12/08/19 16:43 [No Known Allergies*] [facility] Past Medical History Attestation statement: The following information was validated with the patient. Social History Social History Advance Directives: No Advance Directives Information Provided: No Physical Exam Vital Signs: Vital Signs: Last Vital Signs Temp 97.4 F 12/24/21 08:05 Pulse 78 12/24/21 08:05 Resp 18 12/24/21 08:05 BP 152/89 H 12/24/21 08:05 Pulse Ox 99 12/24/21 08:05 O2 Del Method 12/24/21 08:05 BMI result Body Mass Index 48.0 Discharge Plan Discharge Prescriptions: No Action dexamethasone 6 mg tablet 6 mg PO DAILY 5 Days Qty: 5 0RF cyclobenzaprine 5 mg tablet 5 mg PO TID PRN (Reason: cervical radiculopathy) 7 Days Qty: 21 0RF
--- NOTE | 2021-12-24 09:31 | ED_ITS ---
HPI - Neck Pain/Injury General Chief Complaint: Neck Pain/Injury Stated Complaint: sob, chest pain, cant lift arm w/o pain Time Seen by Provider: 12/24/21 08:07 Source: patient Mode of arrival: ambulatory History of Present Illness HPI Narrative: 36-year-old female with no significant past medical history presented to ED complaining of left scapular/upper back pain radiating to neck and left upper extremity x4-5 days. Pain worse w/movement and palpation. Admits was recently seen and treated in our ED for similar symptoms, had little relief with Flexeril. Denies known injury, trauma, fall. Reports intermittent numbness/paresthesias. Denies headache, dizziness, vision change/loss, weakness, chest pain, shortness of breath, fever, urinary incontinence/retention. Denies taking anticoagulation MD complaint: neck pain and upper back pain Onset (ago): day(s) Related Data Previous Rx's Medication Instructions Recorded dexamethasone 6 mg tablet 6 mg PO DAILY 5 days #5 tabs 08/30/21 cyclobenzaprine 5 mg tablet 5 mg PO TID PRN cervical 11/29/21 radiculopathy 7 days #21 tabs acetaminophen 500 mg tablet 500 mg PO Q6H PRN fever or pain 12/24/21 (Tylenol Extra Strength) #14 tabs diazepam 2 mg tablet (Valium) 2 mg PO BID PRN muscle spasm 3 12/24/21 days #6 tabs ketorolac 10 mg tablet 10 mg PO TID PRN pain 5 days #15 12/24/21 tabs lidocaine 5 % topical patch 1 patch topical DAILY PRN pain #30 12/24/21 (Lidoderm) ea Allergies Allergy/AdvReac Type Severity Reaction Status Date / Time No Known Allergies Allergy Unverified 12/08/19 16:43 [No Known Allergies*] Review of Systems Review of Systems: Constitutional: No Fever, No Chills, No Fatigue, No Malaise ENT/Mouth: No Ear Pain, No Nasal Congestion, No Hoarseness, No sore throat, No Rhinorrhea, No Swallowing Difficulty Eyes: No Eye Pain, No Swelling, No Redness, No Vision Changes Cardiovascular: No Chest Pain, No SOB, No Dyspnea on Exertion Respiratory: No Cough, No Sputum, No Dyspnea Gastrointestinal: No Nausea, No Vomiting, No Diarrhea, No Constipation, No Abdominal pain Genitourinary: No irregular bleeding, No Dysuria, No Urinary Frequency, No Hematuria, No Urinary Incontinence/retention, No Flank Pain Musculoskeletal: + joint pain, + Myalgias, No Joint Swelling Skin: No Skin Lesions, No rash Neuro: No Weakness, + Numbness, + Paresthesias, No Loss of Consciousness, No Dizziness, No Headache Yes all other systems are reviewed and are negative Constitutional: Constitutional: Reports as per HPI Neurologic: Denies Abnormal speech present COUNTS INCLUDE 234 BEDS AT THE [facility] Past Medical History Attestation statement: The following information was validated with the patient. Social History Social History Advance Directives: No Advance Directives Information Provided: No Physical Exam Vital Signs: Vital Signs: Last Vital Signs Temp 97.4 F 12/24/21 08:05 Pulse 78 12/24/21 08:05 Resp 18 12/24/21 08:05 BP 152/89 H 12/24/21 08:05 Pulse Ox 99 12/24/21 08:05 O2 Del Method 12/24/21 08:05 BMI result Body Mass Index 48.0 Const: General: cooperative, healthy appearing and no acute distress Orientation/consciousness: patient oriented x3 Limitations: no limitations HEENT: Head: Yes normal to inspection and Yes atraumatic Ears: hearing grossly normal bilaterally General nose exam: Normal external nose present Face and sinus: Yes normal facial exam Eyes: General: appearance normal, both eyes and all related structures EOM: EOMs intact bilaterally Neck: Other: No midline cervical spinous tenderness. + left trapezius muscle tenderness to palpation. Limited ROM of neck secondary to pain Neck: Yes normal visual inspection, Yes no lymphadenopathy, Yes no meningeal signs, Yes trachea midline and Yes supple Resp: Effort & Inspection: normal respiratory effort and no respiratory distress Auscultation: clear to auscultation bilaterally, no crackles, no rales and no rhonchi Cardio: Rate: regular rate Heart sounds: S1 normal heart sound present and S2 normal heart sound present Peripheral pulses: Peripheral pulses 2+ throughout Back/Spine/Pelvis: Other: No midline thoracic/lumbar spinous tenderness/step-off or deformity. +L scapular tenderness to palpation. No overlying cellulitis/ecchymosis or rash Skin: Rashes: no rashes Wounds: no wounds Neuro: General: patient oriented x3, gait normal, tone normal, moves all extremities, no meningeal signs and no focal motor deficits Cranial nerves: Yes CN's II-XII intact bilaterally Cognition (Neuro): normal cognition Speech: No Abnormal speech present Gait exam (Neuro): Normal gait present Motor exam (neuro): 5/5 motor strength present throughout Extrem: Other: Limited ROM to left upper extremity secondary to pain General: Yes normal to inspection Course Course Course Narrative: XR chest 2V IMPRESSION: Unremarkable examination. No significant change since previous examination. > patient with mild improvement after p.o. Valium/IM Toradol. > additionally will give p.o. Oxycodone and plan for discharge home with PCP follow-up MDM - Neck Pain/Injury MDM Narrative Medical decision making narrative: 36-year-old female with no significant past medical history presented to ED complaining of left scapular/upper back pain radiating to neck and left upper extremity x4-5 days. On exam VSS, NAD, nontoxic appearing, physical exam as abo ve, no midline spinous tenderness throughout, no red flag symptoms, neurovascularly intact, pain reproducible with palpation, left upper extremity and neck movement. Concern for MSK pain/spasming vs radiculopathy. Low suspicion for ACS, PE, pneumonia, cord compression, or cauda equina. Low suspicion for CVT or arterial dissection Plan: CXR, EKG, p.o. Valium, IM Toradol, Lidoderm patch Differential Diagnosis Differential diagnosis: Likely disc disorder of cervical region, cervical radiculopathy, torticollis and strain of neck muscle Medical Records Attestation: I reviewed the patient's medical records. Lab Data Attestation: I reviewed the patient's lab results. Discharge Plan Discharge Clinical Impression: Pain of left scapula, Musculoskeletal back pain Patient Disposition: Home, Self-Care Instructions: Back Pain (ED) Additional Instructions: Your x-ray is unremarkable Your pain is likely musculoskeletal Valium is a muscle relaxer, take at night as it makes you drowsy, do not drive, drink alcohol, or operate machinery while taking it Toradol as an anti-inflammatory / pain medication, take with food Lidoderm patches are numbing patches, apply to painful area In addition take Tylenol at home If symptoms persist or worsen, pain becomes unbearable, you developed urinary retention or incontinence, or weakness return to the ED Prescriptions: New ketorolac 10 mg tablet 10 mg PO TID PRN (Reason: pain) 5 Days Qty: 15 0RF diazepam [Valium] 2 mg tablet 2 mg PO BID PRN (Reason: muscle spasm) 3 Days Qty: 6 0RF acetaminophen [Tylenol Extra Strength] 500 mg tablet 500 mg PO Q6H PRN (Reason: fever or pain) Qty: 14 0RF lidocaine [Lidoderm] 5 % adhesive patch,medicated 1 patch topical DAILY MDD remove after 12 hours PRN (Reason: pain) Qty: 30 0RF Rx Instructions: leave on most painful area for up to 12 hrs No Action dexamethasone 6 mg tablet 6 mg PO DAILY 5 Days Qty: 5 0RF cyclobenzaprine 5 mg tablet 5 mg PO TID PRN (Reason: cervical radiculopathy) 7 Days Qty: 21 0RF Referrals: Name,MD Tucker [Primary Care Provider] - 3 days
[2021-12-24] MEDS: Ketorolac Tromethamine 30 MG/ML VIAL IM (09:42)
[2021-12-24] MEDS: Lidocaine 4 % Patch ADH..PATCH 1 PATCH TRANSDERMA (09:44)
[2021-12-24] MEDS: diazePAM 2 MG TABLET 5 MG PO (09:53)
[2021-12-24] MEDS: oxyCODONE HCl Immed Release 5 MG TABLET PO (11:20)
== END 2021-12-24 11:23 | disposition home or self-care (01) ==
PROVIDERS: Emergency Provider Emergency Medicine; PCP Internal Medicine Geriatric Medicine
DX: M25.512 Pain in left shoulder (principal); M54.50 Low back pain, unspecified; R06.02 Shortness of breath; M54.2 Cervicalgia; R07.89 Other chest pain; Z79.899 Other long term (current) drug therapy
CPT/HCPCS: 71046; 96372; 99283; 99284; J1885

== ENCOUNTER 2021-12-31 07:26 | Outpatient (REF) | payer OTHER, SELFPAY ==
--- NOTE | ~2021-12-31 | MR_ITS ---
EXAMINATION: MR CERVICAL SPINE WITHOUT CONTRAST CLINICAL INFORMATION: 36-year-old with complaints of the right-sided neck pain with stiffness and right hand numbness. Radiculopathy, cervical region. Technical Note: Images were degraded by motion artifact. COMPARISON: None. TECHNIQUE: MRI of the cervical spine was obtained using routine sequences without contrast. FINDINGS: Alignment: Slight lower cervical levocurvature noted. Normal lordotic curvature is maintained. Craniocervical Junction/C1-C2 Articulations: There is mild retrolisthesis at the left C1-C2 facet joint, which is nonspecific but could be secondary to head rotation in the scanner. Otherwise the atlantooccipital joints and C1-C2 articulations are unremarkable. Visualized Intracranial Structures: Within normal limits. Vertebral Bodies: Normal height. Disc Spaces and Endplates: [id number] intervertebral disc volume loss at C5-C6 with disc desiccation noted. Mild disc volume loss at C4-C5 with disc desiccation noted. No significant spondylosis. Endplates appear intact. Bone Marrow: No significant marrow-replacing process or bone marrow edema. C2-C3: No disc herniation or canal stenosis. No significant DJD or neural foraminal stenosis. C3-C4: No disc herniation or canal stenosis. No significant DJD or neural foraminal stenosis. C4-C5: Shallow broad-based central disc protrusion with minimal indentation of the ventral thecal sac without cord impingement or canal stenosis. There is uncovertebral spurring, right more than left without significant facet arthrosis. [id number] right-sided neural foraminal stenosis is noted. C5-C6: Broad-based posterior disc osteophyte complex asymmetric to the right, with effacement of the ventral dural sac asymmetric to the right slightly deforming the ventral spinal cord on the right, with mild spinal canal stenosis asymmetric to the right. No significant DJD or neural foraminal stenosis. C6-C7: Very small central disc protrusion with minimal indentation of the ventral thecal sac without cord impingement or canal stenosis. Mild bilateral uncinate process spurring without significant neural foraminal stenosis. C7-T1: Broad-based right paramedian disc protrusion with mild indentation of the ventral thecal sac on the right without cord impingement or canal stenosis. No significant DJD or neural foraminal stenosis. T1-T2: Posterolateral disc osteophyte complex noted bilaterally right more than left with the mild encroachment on the ventral dural sac on both sides of the midline without cord impingement, with ligamentum flavum thickening without central canal stenosis. There is narrowing of the right lateral recess and slight narrowing of the right neural foramen. There is a small right paramedian disc protrusion at T3-T4 with mild right-sided facet arthropathy. Spinal Cord: The cervical and visualized upper thoracic spinal cord is normal in morphology, caliber and signal intensity. Extracranial Soft Tissues: There is moderate mucosal thickening in the sphenoid sinus which is partially visualized. Minor mucosal thickening in the maxillary sinuses noted bilaterally. Otherwise the visualized soft tissue and paravertebral neck structures are grossly unremarkable in appearance within the limitations of the exam. MR/MR cervical spine wo con IMPRESSION: 1. Discogenic degenerative changes at C4-C5 and C5-C6 as discussed above, with the broad-based disc osteophyte complex asymmetric to the right at C5-C6 with mild central canal stenosis and mild right-sided ventral cord deformity/impingement. 2. Other levels of the disc osteophyte complex and disc protrusion as detailed by level above without cord impingement or significant canal stenosis. 3. Minor DJD with [id number] right-sided neural foraminal stenosis at C4-C5. 4. Paranasal sinus mucosal thickening incidentally noted.
== END 2021-12-31 07:27 | disposition home or self-care (01) ==
LOC: HO.MRI 07:26
PROVIDERS: Visit Provider Internal Medicine
DX: M54.12 Radiculopathy, cervical region (principal)
CPT/HCPCS: 72141

== ENCOUNTER 2022-01-10 11:49 | Outpatient (REF) | payer OTHER, SELFPAY ==
--- NOTE | ~2022-01-10 | XR_ITS ---
EXAMINATION: XR PELVIS CLINICAL INFORMATION: Pain COMPARISON: Right hip radiographs 08/16/2020 TECHNIQUE: AP view of the pelvis. FINDINGS: No acute fracture or dislocation. Joint spaces are maintained. Calcified phleboliths in the pelvis. Desiccated stool within the rectum. XR/XR pelvis 1-2V IMPRESSION: No acute osseous abnormality.
== END 2022-01-10 11:50 | disposition home or self-care (01) ==
LOC: HO.XRAY 11:49
PROVIDERS: Absent Provider Internal Medicine Geriatric Medicine; PCP Internal Medicine Geriatric Medicine; Visit Provider Internal Medicine
DX: M25.551 Pain in right hip (principal); M25.552 Pain in left hip
CPT/HCPCS: 72170

== ENCOUNTER → 2022-01-22 10:52 | Outpatient (BNVA) | payer OTHER, SELFPAY | PROVIDERS: PCP Internal Medicine Geriatric Medicine; Visit Provider Internal Medicine | DX: R05.3 Chronic cough (principal); J68.3 Other acute and subacute respiratory conditions due to chemicals, gases, fumes and vapors; U09.9 Post COVID-19 condition, unspecified; E66.01 Morbid (severe) obesity due to excess calories; Z68.42 Body mass index [BMI] 45.0-49.9, adult | CPT/HCPCS: 99202 ==

== ENCOUNTER → 2022-02-21 08:25 | Outpatient (BNVA) | payer OTHER, SELFPAY | PROVIDERS: PCP Internal Medicine Geriatric Medicine; Referring Provider Internal Medicine Geriatric Medicine; Visit Provider Physician Assistant | DX: E66.01 Morbid (severe) obesity due to excess calories (principal); K21.9 Gastro-esophageal reflux disease without esophagitis; M79.7 Fibromyalgia; F41.9 Anxiety disorder, unspecified; F32.A Depression, unspecified; J45.909 Unspecified asthma, uncomplicated; G47.33 Obstructive sleep apnea (adult) (pediatric); Z99.89 Dependence on other enabling machines and devices; Z68.42 Body mass index [BMI] 45.0-49.9, adult | CPT/HCPCS: 99202 ==

== ENCOUNTER 2022-02-27 08:00 | Outpatient (REF) | payer OTHER, SELFPAY ==
--- NOTE | 2022-02-27 09:29 | PFT_ITS ---
Forced vital capacity 93%, FEV1 87%, FEV1/FVC ratio is 79. [id number] 68% and MVV 86%. Post bronchodilator therapy, there is significant improvement in FEV1 and [id number]. Total lung capacity 93%, residual volume 97%, and diffusion capacity 79%. CONCLUSION: Mild obstructive airway disorder with excellent response to bronchodilator therapy. This finding is consistent with bronchial asthma. Clinical correlation is recommended. MD MICKEY Perales/CHRIS / [phone]
== END 2022-02-27 08:01 | disposition home or self-care (01) ==
LOC: HO.RESP 08:00
PROVIDERS: Visit Provider Internal Medicine
DX: J68.3 Other acute and subacute respiratory conditions due to chemicals, gases, fumes and vapors (principal); R05.3 Chronic cough; U09.9 Post COVID-19 condition, unspecified
CPT/HCPCS: 94060; 94727; 94729

== ENCOUNTER → 2022-03-05 11:34 | Outpatient (BNVA) | payer OTHER, SELFPAY | PROVIDERS: PCP Internal Medicine Geriatric Medicine; Visit Provider Internal Medicine | DX: R05.3 Chronic cough (principal); U09.9 Post COVID-19 condition, unspecified; J68.3 Other acute and subacute respiratory conditions due to chemicals, gases, fumes and vapors; E66.01 Morbid (severe) obesity due to excess calories; Z68.42 Body mass index [BMI] 45.0-49.9, adult | CPT/HCPCS: 99212 ==

== ENCOUNTER 2022-07-02 10:07 | Outpatient (REF) | payer OTHER, SELFPAY ==
--- NOTE | ~2022-07-02 | XR_ITS ---
EXAMINATION: XR HAND, RIGHT CLINICAL INFORMATION: Pain COMPARISON: Right hand radiographs 10/19/2011 TECHNIQUE: 3 views of the hand FINDINGS: No fracture or dislocation. Joint spaces are maintained. No cortical erosion. Soft tissues are unremarkable. XR/XR hand RT min 3V IMPRESSION: No acute osseous abnormality.
== END 2022-07-02 10:08 | disposition home or self-care (01) ==
LOC: HO.XRAY 10:07
PROVIDERS: Visit Provider Emergency Medicine
DX: M79.641 Pain in right hand (principal); J45.909 Unspecified asthma, uncomplicated; J68.3 Other acute and subacute respiratory conditions due to chemicals, gases, fumes and vapors; E66.01 Morbid (severe) obesity due to excess calories; Z91.81 History of falling; Z79.899 Other long term (current) drug therapy; Z98.84 Bariatric surgery status
CPT/HCPCS: 73130; 99212

== ENCOUNTER → 2022-09-10 10:31 | Outpatient (BNVA) | payer OTHER, SELFPAY | PROVIDERS: PCP Internal Medicine Geriatric Medicine; Visit Provider Internal Medicine | DX: J45.20 Mild intermittent asthma, uncomplicated (principal); E66.01 Morbid (severe) obesity due to excess calories; Z68.42 Body mass index [BMI] 45.0-49.9, adult; G47.33 Obstructive sleep apnea (adult) (pediatric) | CPT/HCPCS: 99212 ==

== ENCOUNTER 2023-02-18 10:56 | Outpatient (REF) | payer OTHER, SELFPAY ==
[2023-02-18 13:22] LABS: MANUAL DIFF FLAG NO
[2023-02-18 13:43] LABS: Basophils Percent Auto 0.4 % (0-2); Hematocrit 37.2 % (37.0-47.0); Hemoglobin 11.6 g/dl (12.0-16.0); Imm Gran Abs Auto 0.01 X10*3/uL (0.00-0.03); Imm Gran Pct Auto 0.2 % (0.0-0.4); Lymphocytes Absolute Auto 1.6 X10*3/uL (1.2-4.9); Lymphocytes Percent Auto 30.3 % (20-40); Mean Corpuscular HGB Conc 31.2 g/dl (31.0-35.0); Mean Corpuscular Hemoglobin 23.1 pg (27.0-33.0); Mean Corpuscular Volume 74.1 fL (80.0-98.0); Monocytes Absolute Auto 0.5 X10*3/uL (0.1-1.2); Monocytes Percent Auto 9.4 % (2-11); Neutrophils Absolute Auto 3.1 x10*3/uL (2.0-8.3); Neutrophils Percent Auto 59.7 % (45-73); Platelet Count 144 X10*3/uL (160-400); Red Blood Count 5.02 X10*6/uL (4.20-5.50); Red Cell Distribution Width 17.2 % (11.0-16.0); White Blood Count 5.2 X10*3/uL (4.8-10.8)
[2023-02-18 14:09] LABS: Alanine Aminotransferase 13 U/L (0-31); Albumin Level 3.9 g/dL (3.5-5.0); Alkaline Phosphatase 65 U/L (39-117); Anion Gap 9 (12-20); Aspartate Amino Transferase 15 U/L (5-31); Bilirubin Total 0.7 mg/dL (0.0-1.0); Blood Urea Nitrogen 20 mg/dL (9-16); Calcium 9.1 mg/dL (8.4-10.2); Carbon Dioxide 26 mmol/L (22-29); Chloride 107 mmol/L (96-108); Cholesterol 157 mg/dL (<200); Estimated Glomerular Filt Rate > 60; Glucose Random 94 mg/dL (60-115); HDL Cholesterol 57 mg/dL (>40); LDL Cholesterol Calculated 86 mg/dL (<100); Sodium 138 mmol/L (135-145); Total Protein 7.1 g/dL (6.5-8.0); Triglycerides 70 mg/dL (<150)
[2023-02-18 14:31] LABS: TSH reflex Free T4 1.24 uIU/mL (0.32-4.0)
== END 2023-02-18 10:57 | disposition home or self-care (01) ==
LOC: HO.HHCL 10:56
PROVIDERS: Visit Provider Internal Medicine Geriatric Medicine
DX: E66.01 Morbid (severe) obesity due to excess calories (principal); Z68.39 Body mass index [BMI] 39.0-39.9, adult
CPT/HCPCS: 36415; 80053; 80061; 84443; 85025

== ENCOUNTER 2023-02-24 10:40 | Outpatient (REF) | payer OTHER, SELFPAY ==
[2023-02-24 14:11] LABS: Iron 31 mcg/dL (30-160); Percent Iron Saturation 8 % (15-50); Total Iron Binding Capacity 392 mcg/dL (228-428); Unsaturated Iron Binding 361 ug/dL
[2023-02-24 14:14] LABS: Ferritin 8 ng/mL (10-122)
[2023-02-24 14:23] LABS: Folate 8.1 ng/mL (> or = 4.0); Vitamin B12 385 pg/mL (200-900)
== END 2023-02-24 10:41 | disposition home or self-care (01) ==
LOC: HO.HHCL 10:40
PROVIDERS: Visit Provider Internal Medicine Geriatric Medicine
DX: D64.9 Anemia, unspecified (principal); Z98.84 Bariatric surgery status
CPT/HCPCS: 36415; 82607; 82728; 82746; 83540

== ENCOUNTER 2023-03-04 10:35 | Outpatient (AMB) | payer OTHER, SELFPAY ==
[2023-03-04 10:40] VITALS: BP 118/62; PULSE 74; O2SAT 98; BMI 49.3
--- NOTE | 2023-03-04 10:40 | A.OFFVIS_ITS ---
Intake Vital Signs 03/04/23 10:40 Height 5 ft 4 in Weight 287 lb BMI 49.3 BP 118/62 Blood Pressure Location Lt brachial Position Sitting Pulse 74 Pulse Source Pulse Oximeter Pulse Oximetry (%) 98 Oxygen Delivery Method Room Air Intake Visit Reasons: Asthma Intake Note: pt is here for follow up and she is wheezing, coughing, shortness of breath x 3 weeks Actionscript Developer Required: No Allergies No Known Allergies [No Known Allergies*] Allergy (Verified 03/04/23 10:44) HPI Asthma HPI Details THIS 37 YEARS OLD FEMALE IS A KNOWN CASE OF MILD BRONCHIAL ASTHMA. SHE IS HERE. FOR 6 MONTHS FOLLOW-UP SINCE HER LAST VISIT SHE HAD GONE TO [place] AND GOT . SHE BROUGHT HER WITH HER OVER HERE, HE IS A PLEASANT GENTLEMAN BUT DEAF, UNDERSTANDS SIGN LANGUAGE. HER BREATHING HAS BEEN STABLE, BUT SHE DOES HAVE INTERMITTENT COUGH AND SOME WHEEZING. SHE ALSO GETS SHORT OF BREATH ON WALKING UP HILL OR CLIMBING STAIRS. SHE REMAINS GROSSLY OVERWEIGHT, HAS PAST HISTORY OF SLEEP APNEA, AT PRESENT SHE DENIES ANY ACTIVE SYMPTOMS. SHE STATES THAT SHE SLEEPS WELL AND NO ONE IS BEING BOTHERED BY HER SNORING. 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 Social History Alcohol intake: never Patient Tobacco Use Status: Former Tobacco user Review of Systems Const All systems reviewed & are unremarkable except as noted in HPI and below Eyes Reports no additional complaints ENT Reports nasal congestion (Mild off and on) Card Denies chest pain, Denies irregular heart rhythm and Denies leg edema Resp Reports as per HPI and Reports cough (INCREASED) GI Reports no additional complaints Reports no additional complaints Musc Reports back pain and Reports myalgias Skin/Breast Reports system reviewed and no additional complaints, except as documented Neuro Reports no additional complaints Psych Reports depression (Controlled with sertraline) Endo Reports no additional complaints Aller/Immun Reports no additional complaints Physical Exam Vital Signs: Last Vital Signs Pulse 74 03/04/23 10:40 BP 118/62 03/04/23 10:40 Pulse Ox 98 03/04/23 10:40 Oxygen Delivery Method Room Air 03/04/23 10:40 BMI result Body Mass Index 49.3 Const Other: Grossly obese General: comfortable, no acute distress, alert and awake Orientation/consciousness: patient oriented x3 HEENT Head: Yes normal to inspection General nose exam: No nasal polyps present and No nasal discharge present Face and sinus: Yes sinuses nontender Mouth: oropharynx normal Throat: Yes posterior oropharynx normal Eyes General: appearance normal, both eyes and all related structures Neck Neck: Yes normal visual inspection, Yes no lymphadenopathy, Yes trachea midline and Yes no JVD Thyroid: Thyroid normal Chest Chest palpation & inspection: normal inspection of the chest, normal palpation of entire chest wall and no tenderness Resp Other: Percussion note is resonant, breath sounds are equal on both sides but decreased over the lower lobe areas. On auscultation both lungs are clear and I did not hear any wheezes or rhonchi. Cardio Palpation: normal PMI Rate: regular rate Rhythm: regular rhythm Heart sounds: no gallops and no murmurs GI Palpation (GI): Soft to palpation, nontender, No hepatosplenomegaly present, no masses and Other GI palpation findings present (Abdomen is grossly obese and protuberant.) Auscultation: normal bowel sounds Back/Spine/Pelvis Thoracic/Lumbar Spine: thoracic and lumbar spine normal to inspection and thoraco-lumbar ROM limited Skin General skin exam: no rashes or lesions noted Neuro General: patient oriented x3 and no focal motor deficits Cranial nerves: Yes CN's II-XII intact bilaterally Extrem General: Yes normal to inspection, Yes no clubbing, cyanosis or edema and Yes no calf tenderness Psych Appearance: grossly normal and well kempt Speech and movement: Normal speech and movement present Results Reviewed Results Reviewed: Pulmonary function test on 02/27/2022. She has mild bronchial asthma which responded well to the bronchodilator therapy Assessment & Plan Assessment & Plan (1) Morbid obesity: Comment: Patient is known case of morbid obesity. S/P gastroplasty in 2012 at [facility], initially with good results. She has regained weight. But denies symptoms of obstructive sleep apt. She has not been active in the weight management program at [facility]. Code(s): E66.01 - Morbid (severe) obesity due to excess calories Plan: Patient is made aware of her morbid obesity. She needs to rejoin the weight management program. (2) Asthma: Comment: BRONCHIAL ASTHMA, INTERMITTENT, CURRENTLY IN ACTIVE AND STABLE. Code(s): J45.909 - Unspecified asthma, uncomplicated Plan: [place] : ADVISED TO RESTART WIXELA 250-50 IF SYMPTOMS GET ANY WORSE. USE PROAIR 2 PUFFS Q 4-6 HOURS ONLY P.R.N. FOR OUTDOORS. ALBUTEROL SOLUTION IN NEBULIZER Q 6 HOURS P.R.N. WHEN AT HOME (3) Bronchitis: Comment: CURRENTLY SHE DOES HAVE SCRATCHY THROAT WITH CONGESTED FEELING AND COUGH, SECONDARY TO ACUTE BRONCHITIS. Code(s): J40 - Bronchitis, not specified as acute or chronic Plan: Z-SUGAR 1 COURSE IS PRESCRIBED. Medications: New azithromycin For 250 mg dose pack: take 500 mg today (day 1), then 250 mg for 4 days (days 2-5) PO 6 tabs 0RF fluticasone propion-salmeterol 250-50 mcg/dose (Wixela Inhub) 1 inh inhalation BID 30 days 60 ea 2RF ASTHMA Coding Level of Care Code Est Pt Level 3 (55052) Diagnoses Morbid obesity E66.01 Asthma J45.909 Bronchitis J40
== END 2023-03-04 11:04 | disposition home or self-care (01) ==
PROVIDERS: PCP Internal Medicine Geriatric Medicine; Visit Provider Internal Medicine
DX: E66.01 Morbid (severe) obesity due to excess calories (principal); J45.909 Unspecified asthma, uncomplicated; J40 Bronchitis, not specified as acute or chronic
CPT/HCPCS: 99213

== ENCOUNTER → 2023-03-04 10:35 | Outpatient (BNVA) | payer OTHER, SELFPAY | PROVIDERS: PCP Internal Medicine Geriatric Medicine; Visit Provider Internal Medicine | DX: J45.909 Unspecified asthma, uncomplicated (principal); J40 Bronchitis, not specified as acute or chronic; E66.01 Morbid (severe) obesity due to excess calories; Z68.42 Body mass index [BMI] 45.0-49.9, adult | CPT/HCPCS: 99212 ==

== ENCOUNTER 2023-07-08 10:38 | Outpatient (AMB) | payer OTHER, SELFPAY ==
--- NOTE | 2023-07-08 10:48 | A.OFFVIS_ITS ---
Intake Vital Signs 07/08/23 10:49 Height 5 ft 4 in Weight 293 lb 3.437 oz BMI 50.3 BP 108/60 Blood Pressure Location Lt brachial Position Sitting Pulse 67 Pulse Oximetry (%) 99 Oxygen Delivery Method Room Air Intake Visit Reasons: Asthma Intake Note: pt is here for follow up and asthma is getting worse due to allergies. 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 Allergies No Known Allergies [No Known Allergies*] Allergy (Verified 07/08/23 11:17) Medication List - Last Reconciled 07/08/23 by Teodora Cordova MD acetaminophen (Tylenol Extra Strength) 500 mg PO Q6H PRN acetaminophen ER 650 mg PO Q12H albuterol sulfate 90 mcg/actuation (Ventolin HFA) 2 puffs inhalation Q4-6H PRN 30 days calcium citrate-vitamin D3 500 mg-12.5 mcg (500 unit) tabs PO docusate sodium 100 mg PO BID ferrous sulfate 324 mg PO DAILY fluticasone propion-salmeterol 250-50 mcg/dose (Wixela Inhub) 1 inh inhalation BID 30 days gabapentin 300 mg PO DAILY inhalational spacing device (Compact Space Chamber) As directed lorazepam 1 mg PO DAILY PRN omeprazole 20 mg PO DAILY sertraline 200 mg PO QAM zolpidem 5 mg PO BEDTIME PRN Do you need a note to return to daycare/school/sports/work: No HPI Asthma HPI Details THIS 37 YEARS OLD FEMALE IS GROSSLY OBESE, SHE WAS TRYING TO LOSE WEIGHT BUT THEN REGAINED BECAUSE SHE WAS NOT ABLE TO GET OUT AND WALK. SHE DENIES SYMPTOMS OF SLEEP APNEA. SHE DOES HAVE BRONCHIAL ASTHMA WHICH IS BEING TREATED WITH WIXELA 250-50 AND ALBUTEROL OFF AND ON . DENIES ANY ACTIVE WHEEZING. DOES GET SHORT OF BREATH WHEN SHE WALKS OUTDOORS OR CLIMBS STAIRS. HER MAIN COMPLAINT IS NASAL CONGESTION WITH POSTNASAL DRIP WHICH IS WORSE SINCE THE START OF SPRING. 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 Social History Alcohol intake: never Patient Tobacco Use Status: Former Tobacco user Review of Systems Const All systems reviewed & are unremarkable except as noted in HPI and below Eyes Reports no additional complaints ENT Reports nasal congestion (Mild off and on) Card Denies chest pain, Denies irregular heart rhythm and Denies leg edema Resp Reports as per HPI and Reports cough (INCREASED) GI Reports no additional complaints Reports no additional complaints Musc Reports back pain and Reports myalgias Skin/Breast Reports system reviewed and no additional complaints, except as documented Neuro Reports no additional complaints Psych Reports depression (Controlled with sertraline) Endo Reports no additional complaints Aller/Immun Reports no additional complaints Physical Exam Vital Signs: Last Vital Signs Pulse 67 07/08/23 10:49 BP 108/60 07/08/23 10:49 Pulse Ox 99 07/08/23 10:49 Oxygen Delivery Method Room Air 07/08/23 10:49 BMI result Body Mass Index 50.3 Const Other: Grossly obese General: comfortable, no acute distress, alert and awake Orientation/consciousness: patient oriented x3 HEENT Head: Yes normal to inspection General nose exam: No nasal polyps present and No nasal discharge present Face and sinus: Yes sinuses nontender Mouth: oropharynx normal Throat: Yes posterior oropharynx normal Eyes General: appearance normal, both eyes and all related structures Neck Neck: Yes normal visual inspection, Yes no lymphadenopathy, Yes trachea midline and Yes no JVD Thyroid: Thyroid normal Chest Chest palpation & inspection: normal inspection of the chest, normal palpation of entire chest wall and no tenderness Resp Other: Percussion note is resonant, breath sounds are equal on both sides but decreased over the lower lobe areas. On auscultation both lungs are clear and I did not hear any wheezes or rhonchi. Cardio Palpation: normal PMI Rate: regular rate Rhythm: regular rhythm Heart sounds: no gallops and no murmurs GI Palpation (GI): Soft to palpation, nontender, No hepatosplenomegaly present, no masses and Other GI palpation findings present (Abdomen is grossly obese and protuberant.) Auscultation: normal bowel sounds Back/Spine/Pelvis Thoracic/Lumbar Spine: thoracic and lumbar spine normal to inspection and thoraco-lumbar ROM limited Skin General skin exam: no rashes or lesions noted Neuro General: patient oriented x3 and no focal motor deficits Cranial nerves: Yes CN's II-XII intact bilaterally Extrem General: Yes normal to inspection, Yes no clubbing, cyanosis or edema and Yes no calf tenderness Psych Appearance: grossly normal and well kempt Speech and movement: Normal speech and movement present Assessment & Plan Assessment & Plan (1) Morbid obesity: Comment: Patient is known case of morbid obesity. S/P gastroplasty in 2013 at [facility], initially with good r esults. She has regained weight. But denies symptoms of obstructive sleep apnea. She has not been active in the weight management program at [facility]. Code(s): E66.01 - Morbid (severe) obesity due to excess calories Plan: Discussed about diet and advised her to be on low carbs diet, cut down on the portions Walk 1-2 miles on a daily basis. (2) Asthma: Comment: BRONCHIAL ASTHMA, INTERMITTENT, CURRENTLY INACTIVE AND STABLE. Code(s): J45.909 - Unspecified asthma, uncomplicated Plan: Continue to use Wixela 250-51 inhalation b.i.d.. Albuterol HFA 2 puffs Q 6 hours only p.r.n.. (3) Allergic rhinitis: Comment: She claims to have symptoms of nasal congestion and postnasal discharge, secondary to seasonal allergy. Code(s): J30.9 - Allergic rhinitis, unspecified Plan: Advise that she may use loratadine 10 mg once a day p.r.n. (4) JOSE A (obstructive sleep apnea): Comment: Has past history of obstructive sleep apnea, but after gastroplasty she had lost significant weight and symptoms of sleep apnea resolved. Now even though she has regained weight, she still denies any active symptoms of sleep apnea. She claims that she can sleep 6 hours without any problem. She denies daytime sleepiness. Code(s): G47.33 - Obstructive sleep apnea (adult) (pediatric) Plan: She is advise that she has lose weight otherwise she will get the symptoms again and may have to be started on CPAP therapy Coding Level of Care Code Est Pt Level 3 (34655) Diagnoses Morbid obesity E66.01 Asthma J45.909 Allergic rhinitis J30.9 JOSE A (obstructive sleep apnea) G47.33
[2023-07-08 10:49] VITALS: BP 108/60; PULSE 67; O2SAT 99; BMI 50.3
== END 2023-07-08 11:19 | disposition home or self-care (01) ==
PROVIDERS: PCP Internal Medicine Geriatric Medicine; Visit Provider Internal Medicine
DX: E66.01 Morbid (severe) obesity due to excess calories (principal); J45.909 Unspecified asthma, uncomplicated; J30.9 Allergic rhinitis, unspecified; G47.33 Obstructive sleep apnea (adult) (pediatric)
CPT/HCPCS: 99213

== ENCOUNTER → 2023-07-08 10:38 | Outpatient (BNVA) | payer OTHER, SELFPAY | PROVIDERS: PCP Internal Medicine Geriatric Medicine; Visit Provider Internal Medicine | DX: J45.909 Unspecified asthma, uncomplicated (principal); G47.33 Obstructive sleep apnea (adult) (pediatric); E66.01 Morbid (severe) obesity due to excess calories; Z68.43 Body mass index [BMI] 50.0-59.9, adult; Z99.89 Dependence on other enabling machines and devices | CPT/HCPCS: 99212 ==

== ENCOUNTER 2023-12-16 09:42 | Outpatient (REF) | payer OTHER, SELFPAY ==
[2023-12-16 11:16] LABS: MANUAL DIFF FLAG NO
[2023-12-16 11:27] LABS: Estimated Average Glucose 108 mg/dL; Hemoglobin A1c % 5.4 % (<6.0)
[2023-12-16 11:27] LABS: Basophils Percent Auto 0.2 % (0-2); Hematocrit 37.3 % (37.0-47.0); Hemoglobin 11.8 g/dl (12.0-16.0); Imm Gran Abs Auto 0.01 X10*3/uL (0.00-0.03); Imm Gran Pct Auto 0.2 % (0.0-0.4); Lymphocytes Absolute Auto 1.3 X10*3/uL (1.2-4.9); Lymphocytes Percent Auto 20.6 % (20-40); Mean Corpuscular HGB Conc 31.6 g/dl (31.0-35.0); Mean Corpuscular Hemoglobin 23.6 pg (27.0-33.0); Mean Corpuscular Volume 74.5 fL (80.0-98.0); Monocytes Absolute Auto 0.5 X10*3/uL (0.1-1.2); Monocytes Percent Auto 7.9 % (2-11); Neutrophils Absolute Auto 4.4 x10*3/uL (2.0-8.3); Neutrophils Percent Auto 71.1 % (45-73); Platelet Count 168 X10*3/uL (160-400); Red Blood Count 5.01 X10*6/uL (4.20-5.50); Red Cell Distribution Width 18.6 % (11.0-16.0); White Blood Count 6.2 X10*3/uL (4.8-10.8)
[2023-12-16 11:44] LABS: Alanine Aminotransferase 14 U/L (0-31); Albumin Level 3.7 g/dL (3.5-5.0); Alkaline Phosphatase 70 U/L (39-117); Anion Gap 8 (12-20); Aspartate Amino Transferase 13 U/L (5-31); Bilirubin Total 0.6 mg/dL (0.0-1.0); Blood Urea Nitrogen 12 mg/dL (9-16); Calcium 9.2 mg/dL (8.4-10.2); Carbon Dioxide 27 mmol/L (22-29); Chloride 107 mmol/L (96-108); Cholesterol 175 mg/dL (<200); Estimated Glomerular Filt Rate > 60; Glucose Random 89 mg/dL (60-115); HDL Cholesterol 56 mg/dL (>40); LDL Cholesterol Calculated 101 mg/dL (<100); Potassium 4.2 mmol/L (3.3-5.1); Sodium 138 mmol/L (135-145); Total Protein 6.8 g/dL (6.5-8.0); Triglycerides 92 mg/dL (<150)
[2023-12-16 12:02] LABS: TSH reflex Free T4 1.02 uIU/mL (0.32-4.0)
== END 2023-12-16 09:43 | disposition home or self-care (01) ==
LOC: HO.HHCL 09:42
PROVIDERS: Visit Provider Internal Medicine Geriatric Medicine
DX: E66.01 Morbid (severe) obesity due to excess calories (principal); Z13.1 Encounter for screening for diabetes mellitus
CPT/HCPCS: 36415; 80053; 80061; 83036; 84443; 85025

== ENCOUNTER 2023-12-29 13:01 | Outpatient (REF) | payer OTHER, SELFPAY | END 2023-12-29 13:02 | disposition home or self-care (01) | LOC: HO.XRAY 13:01 | PROVIDERS: PCP Internal Medicine Geriatric Medicine; Visit Provider Internal Medicine Geriatric Medicine | DX: M25.561 Pain in right knee (principal); M25.562 Pain in left knee; G89.29 Other chronic pain | CPT/HCPCS: 73564; 99212 ==

== ENCOUNTER 2023-12-29 13:32 | Outpatient (AMB) | payer OTHER, SELFPAY ==
[2023-12-29 13:40] VITALS: BP 120/78; PULSE 67; O2SAT 99; BMI 49.9
--- NOTE | 2023-12-29 13:40 | A.OFFVIS_ITS ---
Vital Signs 12/29/23 13:40 Height 5 ft 4 in Weight 291 lb BMI 49.9 BP 120/78 Blood Pressure Location Lt brachial Position Sitting Pulse 67 Pulse Source Pulse Oximeter Pulse Oximetry (%) 99 Oxygen Delivery Method Room Air Intake Visit Reasons: Asthma Intake Note: pt is here for follow up and states she had covid in September and is still experiencing chest congestion, tightness, coughing and now using advair bid, when before she was able to stay only on 1 puff daily. using albuterol daily 3- 4 times and the need also in middle of night. Drop Tester Required: No Allergies No Known Allergies [No Known Allergies*] Allergy (Verified 07/08/23 11:17) Medication List - Last Reconciled 12/29/23 by Teodora Cordova MD acetaminophen (Tylenol Extra Strength) 500 mg PO Q6H PRN acetaminophen ER 650 mg PO Q12H albuterol sulfate 90 mcg/actuation (Ventolin HFA) 2 puffs inhalation Q4-6H PRN 30 days calcium citrate-vitamin D3 500 mg-12.5 mcg (500 unit) tabs PO docusate sodium 100 mg PO BID ferrous sulfate 324 mg PO DAILY fluticasone propion-salmeterol 250-50 mcg/dose (Wixela Inhub) 1 inh inhalation BID 30 days gabapentin 300 mg PO DAILY inhalational spacing device (Compact Space Chamber) As directed lorazepam 1 mg PO DAILY PRN omeprazole 20 mg PO DAILY sertraline 200 mg PO QAM zolpidem 5 mg PO BEDTIME PRN Do you need a note to return to daycare/school/sports/work: No HPI HPI Asthma: Details: LOLA HARDIN 38 YEARS OLD FEMALE WITH MORBID OBESITY, HAS REACTIVE AIRWAYS/MILD BRONCHIAL ASTHMA, IT WAS UNDER CONTROL WITH USING WIXELA ONLY ONCE A DAY BUT IN SEPTEMBER WHEN SHE RETURNED FROM [place] SHE CONTRACTED ACUTE COVID. TREATED AT HOME, RECOVERED BUT HAS BEEN LEFT WITH ONGOING COUGH. SOMETIMES IS HARD FOR HER TO EXPECTORATES THE THICK GRAYISH SPUTUM. NO WHEEZING BUT GETS SHORT OF BREATH WHEN SHE WALKS AROUND. SHE IS USING WIXELA 250-50 TWICE A DAY AND ALSO ALBUTEROL SOLUTION IN THE NEBULIZER A FEW TIMES EVERY DAY. 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 Social History Alcohol intake: never Patient Tobacco Use Status: Former Tobacco user Review of Systems Const All systems reviewed & are unremarkable except as noted in HPI and below Eyes Reports no additional complaints ENT Reports nasal congestion (Mild off and on) Card Denies chest pain, Denies irregular heart rhythm and Denies leg edema Resp Reports as per HPI and Reports cough (INCREASED) GI Reports no additional complaints Reports no additional complaints Musc Reports back pain and Reports myalgias Skin/Breast Reports system reviewed and no additional complaints, except as documented Neuro Reports no additional complaints Psych Reports depression (Controlled with sertraline) Endo Reports no additional complaints Aller/Immun Reports no additional complaints Physical Exam Const Other: Grossly obese General: comfortable, no acute distress, alert and awake Orientation/consciousness: patient oriented x3 HEENT Head: Yes normal to inspection General nose exam: No nasal polyps present and No nasal discharge present Face and sinus: Yes sinuses nontender Mouth: oropharynx normal Throat: Yes posterior oropharynx normal Eyes General: appearance normal, both eyes and all related structures Neck Neck: Yes normal visual inspection, Yes no lymphadenopathy, Yes trachea midline and Yes no JVD Thyroid: Thyroid normal Chest Chest palpation & inspection: normal inspection of the chest, normal palpation of entire chest wall and no tenderness Resp Other: Percussion note is resonant, breath sounds are equal on both sides but decreased over the lower lobe areas. On auscultation both lungs are clear and I did not hear any wheezes or rhonchi. Cardio Palpation: normal PMI Rate: regular rate Rhythm: regular rhythm Heart sounds: no gallops and no murmurs GI Palpation (GI): Soft to palpation, nontender, No hepatosplenomegaly present, no masses and Other GI palpation findings present (Abdomen is grossly obese and protuberant.) Auscultation: normal bowel sounds Back/Spine/Pelvis Thoracic/Lumbar Spine: thoracic and lumbar spine normal to inspection and thoraco-lumbar ROM limited Skin General skin exam: no rashes or lesions noted Neuro General: patient oriented x3 and no focal motor deficits Cranial nerves: Yes CN's II-XII intact bilaterally Extrem General: Yes normal to inspection, Yes no clubbing, cyanosis or edema and Yes no calf tenderness Psych Appearance: grossly normal and well kempt Speech and movement: Normal speech and movement present Assessment & Plan Assessment & Plan (1) Morbid obesity: Comment: Patient is known case of morbid obesity. S/P gastroplasty in 2012 at [facility], initially with good results. She has regained weight. But denies symptoms of obstructive sleep apnea. She has not been active in the weight management program at [facility]. Code(s): E66.01 - Morbid (severe) obesity due to excess calories Category: Medical Plan: DISCUSSED ABOUT DIET AND NEED TO DO SOME EXERCISE OR WALK DAILY (2) JOSE A on CPAP: Comment: PATIENT DID HAVE HISTORY OF OBSTRUCTIVE SLEEP APNEA, HAD LOST SIGNIFICANT WEIGHT AFTER GASTROPLASTY. JOSE A SYMPTOMS RESOLVED AND SHE DID NOT HAVE TO USE THE CPAP. NOW SHE HAS REGAINED SOME WEIGHT BUT STILL DENIES SYMPTOMS OF JOSE A. Code(s): G47.33 - Obstructive sleep apnea (adult) (pediatric) Category: Medical Plan: ADVISE THAT SHE NEEDS TO KEEP THE WEIGHT UNDER CONTROL. IF SHE DEVELOPS FRAGMENTATION OF SLEEP AND DAYTIME SLEEPINESS, SHE WOULD NEED TO BE RECHECKED FOR SLEEP APNEA WITH A SLEEP STUDY (3) Reactive airways dysfunction syndrome: Comment: She seems to have developed to post COVID reactive airways/ asthma variant. PULMONARY FUNCTION TEST WAS CONSISTENT WITH MILD BRONCHIAL ASTHMA. SHE WAS DOING WELL BUT HAD RECURRENT COVID INFECTION IN SEPTEMBER 2023. SINCE THEN SHE IS AGAIN GETTING LOT OF COUGH. Code(s): J68.3 - Other acute and subacute respiratory conditions due to chemicals, gases, fumes and vapors Category: Medical Plan: TX: SEE ABOVE UNDER BRONCHIAL ASTHMA. ADVISED TO CONTINUE WIXELA 250-50 1 INHALATION B.I.D. REGULARLY USE ALBUTEROL SOLUTION IN THE NEBULIZER Q 4-6 HOURS P.R.N. BUT LESS POSSIBLE. MUCINEX LIQUID( GUAIFENESIN ) 2 TSP T.I.D. (4) Post-COVID chronic cough: Comment: Post COVID ( August 2021, AND september 2023 ) HAS HAD RECURRENCE OF COUGH AFTER RECENT COVID INFECTION. LUNGS ARE CLEAR, HER COUGH IS MOSTLY DUE TO REACTIVE AIRWAYS. Code(s): R05.3 - Chronic cough; U09.9 - Post COVID-19 condition, unspecified Category: Medical Plan: : See under reactive airways Coding Level of Care Code Est Pt Level 3 (76101) Diagnoses Morbid obesity E66.01 JOSE A on CPAP G47.33 Reactive airways dysfunction syndrome J68.3 Post-COVID chronic cough R05.3; U09.9
== END 2023-12-29 13:56 | disposition home or self-care (01) ==
PROVIDERS: PCP Internal Medicine Geriatric Medicine; Visit Provider Internal Medicine
DX: E66.01 Morbid (severe) obesity due to excess calories (principal); G47.33 Obstructive sleep apnea (adult) (pediatric); J68.3 Other acute and subacute respiratory conditions due to chemicals, gases, fumes and vapors; R05.3 Chronic cough; U09.9 Post COVID-19 condition, unspecified
CPT/HCPCS: 99213

== ENCOUNTER → 2024-01-21 13:00 | Outpatient (BNV) | payer OTHER, SELFPAY | PROVIDERS: PCP Internal Medicine Geriatric Medicine; Visit Provider Radiology Diagnostic Radiology | DX: N64.4 Mastodynia (principal); N63.24 Unspecified lump in the left breast, lower inner quadrant | CPT/HCPCS: 76642; 77066; G0279 ==

== ENCOUNTER 2024-01-21 13:07 | Outpatient (REF) | payer OTHER, SELFPAY ==
--- NOTE | ~2024-01-21 | US_ITS ---
EXAMINATION: MM DIAGNOSTIC DIGITAL BREAST TOMOSYNTHESIS, BILATERAL US BREAST LIMITED, LEFT MAMMOGRAPHY: CLINICAL INFORMATION: Baseline mammography. 38-year-old female complaining of small tender palpable abnormality in the left breast lower inner quadrant, posterior one third. No significant family history. No prior surgeries. COMPARISON: Mammography: None. Baseline exam. TECHNIQUE: Digital breast tomosynthesis is performed in both the craniocaudal and mediolateral oblique views along with computer-aided detection (CAD). Synthesized 2D images are generated from the tomosynthesis. In addition to standard views, added full-field bilateral 3-D cc views, and added full field bilateral 3-D MLO views were obtained, as well as 3-D spot compression left CC and MLO views of the focus of palpable concern. FINDINGS: The breasts are almost entirely fatty (ACR BI-RADS breast composition Category a). There are no suspicious masses, suspicious grouped calcifications, or areas of architectural distortion in either breast. The parenchymal pattern is stable from prior exams. There is no skin or axillary abnormality. No mammographic correlate to the focus of palpable concern, marked by a BB marker by the technologist with the aid of the patient, is identified. This will be interrogated by ultrasound. ULTRASOUND: CLINICAL INFORMATION: As above. COMPARISON: None TECHNIQUE: Targeted sonographic evaluation left breast was performed using a high frequency linear transducer. Left breast was interrogated in the lower inner quadrant to include the area of palpable concern. Selected archived documentation. FINDINGS: LEFT BREAST: There is fatty breast tissue present. There is no mass, cystic abnormality, abnormal shadowing, or architectural abnormality. There is no ultrasound correlate to the focus of palpable concern. US/US breast LT limited mamm only IMPRESSION: -There are no findings suspicious for malignancy in either breast. -There is no mammographic or sonographic correlate to the focus of palpable concern lower inner quadrant left breast. Recommend clinical management of follow-up. -Otherwise, recommend the patient resume routine annual screening in one year. OVERALL ASSESSMENT: Mammography: BI-RADS 1 - Negative Ultrasound: BI-RADS 1 - Negative RECOMMENDATION: 1. Patient should be managed based on the clinical impression. 2. Otherwise, routine annual screening mammography. This patient's information was entered into a reminder system with a target due date for their next mammogram. Electronically signed by: Jm Garcia MD 01/21/2024 03:23 PM EDT RP
== END 2024-01-21 13:08 | disposition home or self-care (01) ==
LOC: HO.MAMMO 13:07
PROVIDERS: PCP Internal Medicine Geriatric Medicine; Visit Provider Internal Medicine Geriatric Medicine
DX: N64.4 Mastodynia (principal)
CPT/HCPCS: 76642; 77062; 77066

== ENCOUNTER 2024-09-29 12:06 | Outpatient (REF) | payer OTHER, SELFPAY ==
--- OUTSIDE RECORDS SUMMARY | 2024-09-29 12:31 | XMS_ITS | Data Portability ---
Author Organization [place] [employer] [facility], [facility] Address [address] [place] [address] Care Team Providers Care Airport Utility Worker Name Role Phone HIM [facility] Primary Care Provider Assessment Encounter Date Assessment Date Assessment LastModified by Organization Details LastModified Time 09/30/2023 09/30/2023 I provided real -time medical direction via phone for this encounter and was available for additional phone-based assistance as needed. I have reviewed and agree with the Assessment and Plan as documented by the Choir Teacher. Patient given the opportunity to ask questions. Our service contacted for an assessment of: Chronic BACK pain and sciatica As per above, patient with hx of chronic pain in the low back and also sciatica. No new or worsening red S&S. No new bowel/bladder symptoms. No new gait abnl. No new neurological signs, symptoms or deficits. Per resident inspector on the scene, VSS, non-toxic. Neuro grossly intact. No CKI and not on blood thinners. Has not taken NSAID today Impression: Chronic LBP Plan: Toradol 30 mg IM times one. F/u with PCP. Red flags to be discussed as to when to seek a higher level of care. We discussed the diagnostic uncertainty of home visits and the risk associated with this. In this case, the patient and I felt this to be an acceptable and reasonable amount of risk given the benefit of avoiding an ED visit. We discussed the need to seek care urgently/emerge ntly in the setting of any new or worsening serious symptoms [email or web address] Not available 09/30/2023 17:43:20 02/03/2024 02/03/2024 I provided real -time medical direction via phone for this encounter and was available for additional phone-based assistance as needed. I have reviewed and agree with the Assessment and Plan as documented by the Choir Teacher. Patient given the opportunity to ask questions. Our service contacted for an assessment of: Chronic right back pain As per above, patient with hx of chronic right-sided back pain. No new or worsening red S&S. No new bowel/bladder symptoms. No new gait abnl. No new neurological signs, symptoms or deficits. Per resident inspector on the scene, VSS, non-toxic. Neuro grossly intact. No CKI and not on blood thinners. Has not taken NSAID today. U/A obtained to check for UTI as pain located near right flank. U/A is negative Impression: Chronic LBP Plan: Toradol 30 mg IM times one. F/u with PCP. Red flags to be discussed as to when to seek a higher level of care. We discussed the diagnostic uncertainty of home visits and the risk associated with this. In this case, the patient and I felt this to be an acceptable and reasonable amount of risk given the benefit of avoiding an ED visit. We discussed the need to seek care urgently/emerge ntly in the setting of any new or worsening serious symptoms [email or web address] Not available 02/03/2024 10:56:26 Plan of Treatment Reminders Order Date Submit Date Provider Last Modified By Organization Details Last Modified Time Details Appointments None recorded. Lab rapid SARS CoV 2 Ag, QL IA, respiratory specimen [address], [id number] 4 01:47:53 rapid flu (A+B) [address], [address] 4 01:47:37 urinalysis, dipstick [address], [address] 4 19:05:01 rapid SARS CoV 2 Ag, QL IA, respiratory specimen [address], [address] 4 18:53:41 rapid flu (A+B) [address], [id number] 22:55:18 Referral None recorded. Procedures None recorded. Surgeries None recorded. Imaging None recorded. Medication Orders benzonatate 100 mg capsule 2023 024 [id number] [address] [place], [address], 4 11:40:51 ketorolac 30 mg/mL injection solution 2023 024 [id number] [address] [place] [address], [address], 4 13:04:11 prednisone 20 mg tablet 2023 024 [id number] [address] [place] [address], [address], 4 13:04:11 prednisone 20 mg tablet 2023 024 [id number] [address] [place] [address], [address], 4 14:36:30 ketorolac 30 mg/mL (1 mL) injection solution 2023 024 [address] [place], [address], 4 10:36:09 ketorolac 30 mg/mL injection solution [address] [place], [place] [address], [address] [place] [address], [address], 4 17:42:56 Paxlovid 300 mg (150 mg x 2)-100 mg tablets in a dose pack 2023 024 [id number] [address] [place] [address], [address], 4 18:53:43 Patient TargetsNo targets recorded. Patient InstructionsNo instructions recorded. Reason for Referral None Reported. Results Created Date Observation Date Name Description Value Unit Range Abnormal Flag Note LastModifiedBy Organization Detail LastModifiedTime 09/26/19 24 09/26/2023 rapid flu (A+B) Flu negati ve Not Available [facility] [address] [place] [address], [id number] 09/26/2023 22:55:11 09/26/19 24 09/26/2023 rapid SARS CoV 2 Ag, QL IA, respi rator y speci men rapid SARS CoV 2 Ag, QL IA, respiratory specimen positi ve Not Available [address], [address] 09/26/2023 18:53:22 Result Notes None recorded. Medical Equipment None Reported. Allergies No known drug allergies Medications Name Sig Start Date Stop Date Status Note LastModified by Organization Details LastModified Time celecoxib 200 mg capsule TAKE 1 CAP BY MOUTH IF NEEDED IN THE MORNING AND AT BEDTIME FOR MILD PAIN OR MODERATE PAIN X20 DAYS. active Not Available Not Available No t Available azithromycin 250 mg tablet TAKE 2 TABLETS BY MOUTH TODAY, THEN TAKE 1 TABLET DAILY FOR 4 DAYS DIRECTED active Not Available Not Available No t Available prednisone 20 mg tablet TAKE 2 TABLETS BY MOUTH ONCE A DAY WITH MEAL FOR 4 DAYS. active Not Available Not Available No t Available gabapentin 400 mg capsule TAKE 1 CAPSULE (400 MG) BY MOUTH 2 TIMES DAILY. active Not Available Not Available No t Available sertraline 100 mg tablet TAKE 2 TABLETS BY MOUTH EVERY DAY IN THE MORNING active Not Available Not Available No t Available fexofenadine 180 mg tablet TAKE 1 TABLET BY MOUTH EVERY DAY active Not Available Not Available No t Available acyclovir 400 mg tablet TAKE 1 TABLET BY MOUTH THREE TIMES A DAY FOR 10 DAYS active Not Available Not Available Not Available ketorolac 30 mg/mL (1 mL) injection solution Inject 15 mg by intramuscul ar route. 2022 active Not Available Not Available Not Avai lable betamethason e valerate 0.1 % topical cream APPLY BY TOPICAL ROUTE A THIN LAYER TO THE AFFECTED AREA(S) active Not Available Not Available No t Available benzonatate 100 mg capsule Take 1 capsule 3 times a day by oral route for 7 days. 2023 active Not Available Not Available Not Avai lable nystatin 100,000 unit/gram topical cream APPLY TOPICALLY TO THE AFFECTED AREA TWICE A DAY active Not Available Not Available No t Available docusate sodium 100 mg capsule TAKE 1 CAPSULE BY MOUTH TWICE A DAY active Not Available Not Available No t Available gabapentin 300 mg capsule TAKE 1 CAPSULE BY MOUTH AT BEDTIME active Not Available Not Available No t Available omeprazole 20 mg capsule,chikis yed release TAKE 1 CAPSULE (20 MG) BY MOUTH BEFORE BREAKFAST active Not Available Not Available No t Available montelukast 10 mg tablet TAKE 1 TABLET (10 MG) BY MOUTH ONCE PER DAY. active Not Available Not Available No t Available mometasone 0.1 % topical ointment APPLY TOPICALLY IN THE MORNING active Not Available Not Available No t Available zolpidem 5 mg tablet TAKE 1 TABLET BY MOUTH EVERY DAY AT BEDTIME NEEDED active Not Available Not Available No t Available lorazepam 1 mg tablet TAKE 1 TABLET BY MOUTH EVERY DAY NEEDED active Not Available Not Available No t Available zolpidem 10 mg tablet TAKE 1 TABLET BY MOUTH EVERY DAY AT BEDTIME NEEDED active Not Available Not Available No t Available albuterol sulfate HFA 90 mcg/actuatio n aerosol inhaler INHALE 2 PUFFS EVERY 6 HOURS IF NEEDED FOR WHEEZING. active Not Available Not Available No t Available ferrous sulfate 324 mg (65 mg iron) tablet,delay ed release TAKE 1 TABLET BY MOUTH EVERY DAY active Not Available Not Available No t Available diclofenac 1 % topical gel PLEASE SEE ATTACHED FOR DETAILED DIRECTIONS active Not Available Not Available N ot Available ketorolac 30 mg/mL injection solution Inject 0.5 mL by intravenous route. 2023 active Not Available Not Available Not Avai lable Wixela Inhub 250 mcg-50 mcg/dose powder for inhalation TAKE 1 PUFF BY MOUTH TWICE A DAY NEEDED FOR ASTHMA FOR 30 DAYS active Not Available Not Available Not Available Wixela Inhub 500 mcg-50 mcg/dose powder for inhalation INHALE 1 INHALATION 2 TIMES DAILY. active Not Available Not Available No t Available Wegovy 0.25 mg/0.5 mL subcutaneous pen injector INJECT 0.25 MG SUBCUTANEOU SLY WEEKLY active Not Available Not Available N ot Available Wegovy 0.5 mg/0.5 mL subcutaneous pen injector INJECT ONE PEN (=0.5 MG) SUBCUTANEOU SLY ONCE A WEEK active Not Available Not Available No t Available Paxlovid 300 mg (150 mg x 2)-100 mg tablets in a dose pack TAKE 3 TABLETS BY MOUTH TWICE A DAY FOR 5 DAYS active Not Available Not Available No t Available Vitals Date Recorded Respiratory rate Heart rate Oxygen saturation Oxygen saturation in Arterial blood by Pulse oximetry Body temperature Systolic blood pressure Provider Name and Address Organization Details Last Updated DateTime 4 16 /min 70 /min 99 % 99 % 98 [degF] 116 mm[Hg] Not Available [facility] 4 19:20:21 Date Recorded Body weight Respiratory rate Heart rate Body temperature Oxygen saturation Oxygen saturation in Arterial blood by Pulse oximetry Systolic And Diastolic Provider Name and Address Organization Details Last Updated DateTime 4 989411. 68 g 16 /min 90 /min 98.2 [degF] 98 % 98 % 126/94 mm[Hg] Not Available [facility] 4 17:41:37 Date Recorded Oxygen saturation Oxygen saturation in Arterial blood by Pulse oximetry Respiratory rate Body temperature Body weight Heart rate Body height Systolic And Diastolic Provider Name and Address Organization Details Last Updated DateTime 4 98 % 98 % 14 /min 97.6 [degF] 594683. 6 g 92 /min 152.4 cm 145/80 mm[Hg] Not Available [facility] 4 10:04:03 Date Recorded Body temperature Respiratory rate Oxygen saturation Oxygen saturation in Arterial blood by Pulse oximetry Body height Heart rate Body weight Systolic And Diastolic Provider Name and Address Organization Details Last Updated DateTime 4 98 [degF] 14 /min 98 % 98 % 157.48 cm 71 /min 032632. 6 g 128/86 mm[Hg] Not Available [facility] 4 12:46:24 Date Recorded Oxygen saturation Oxygen saturation in Arterial blood by Pulse oximetry Respiratory rate Body height Heart rate Body temperature Body weight Systolic And Diastolic Provider Name and Address Organization Details Last Updated DateTime 4 99 % 99 % 16 /min 162.56 cm 82 /min 97.6 [degF] 885943. 128 g 107/76 mm[Hg] Not Available [facility] 4 11:26:02 Social History None recorded. Functional Status None recorded. Mental Status None recorded. Family History Nothing Reported. Medical History No medical history recorded. Gynecological HistoryNo gynecological history recorded. Obstetrics History GPAL:G 0 P 0 0 0 0 Past Encounters Encounter ID Performer Location Encounter Start Date Encounter Closed Date Diagnosis/Indication Diagnosis SNOMED-CT Code Diagnosis ICD10 Code Diagnosis Note [id number] Carl Pierson MD [facility] [address] [place] [id number] 01/23/2023 15:48:21 01/27/2023 09:42:22 Sciatica [id number] M54.31 Patient reports acute-on-c hronic pain from sciatica. No new features of the pain. No history or exam findings to suggest cord compromise or secondary back pain. Plan for pain control and continued outpatient treatment. [id number] Humaira Marquez MD [facility] [address] [place] [id number] 03/28/2023 19:02:25 03/29/2023 15:28:00 Exacerbation of intermittent asthma [id number] J45.21 I provided real -time medical direction via phone for this encounter, and was available for additional phone based assistance as needed. I have reviewed and agree with the Assessment and Plan as documented by the Choir Teacher. Patient given the opportunit y to ask questions. 37 yo w/ asthma. treated for exacerbati on with azithro around the , completed course. Sx recrudesce d 1-2d ago. not expectorat ing sputum, hadn't been taking nebs or controller inhalers. Discussed appropriat e use of inhalers and nebulizers . Will prescribe 5d course prednisone and fexofenadi ne for antihistam ine. [id number] GURVINDER CUTLER MD [facility] [address] [place] [phone] 09/26/2023 18:34:39 09/28/2023 14:31:54 Acute COVID-19 [id number] U07.1 Evaluation in the field was performed by my resident inspector colleague, as noted above, I provided real-time direction and supervisio n for this visit. The evaluation revealed 38 year old female with hx of asthma with complains of cough, myalgia , fatigue. Pt reports that she had a dry cough for 3 days, and felt fatigued w/ body aches. She reported feeling feverish the day before as well as having a RAY. She denied dizziness, ear nose or throat pain, CP, SOB, abd pain, N/V/D, or urinary S/S. Tolerating PO well. Denies any kidney issues VSS. Saturating well on RA, afebrileRa pid covid positive, Flu negativeMe dication list reviewed Impression :Acute covid infection Plan:-Pt with mild symptoms of Covid. Saturating well on RA, afebrile-D iscussed paxlovid and the side effects. Pt would like to have it sent to her pharmacy and she will deci if she wants to start it tomorrow morning-Ad vised to continue using her inhalers-R ed flags discussed with the patient Primary care, consider__ _ Dispositio n: We discussed the diagnostic uncertaint y of home visits and the risk associated with this. In this case, the patient and I felt this to be an acceptable and reasonable amount of risk given the benefit of avoiding an ED visit. We discussed the need to seek care urgently/e mergently in the setting of any new or worsening serious symptoms, particular ly fever that doesn't respond to Tylenol/ Motrin, chills CP, SOB , nausea, vomiting, diarrhea, inability to tolerate PO or any other concerns. [id number] Breanna Calix MD [facility] [address] [place] [id number] 09/30/2023 17:41:35 09/30/2023 19:48:09 Right side sciatica [id number] 34373 M54.31 [id number] Breanna Calix MD [facility] [address] [place] [phone] 02/03/2024 10:03:59 02/03/2024 14:20:43 Chronic low back pain [id number] M54.50 [id number] Jocelyne Bonner MD [facility] [address] [place] [phone] 02/04/2024 12:46:20 02/04/2024 17:20:33 Chronic low back pain [id number] M54.50 As noted, we were called to see this patient regarding concerns of back pain. Evaluation in the field was performed by my resident inspector colleague, as noted above, I provided real-time direction and supervisio n for this visit. The evaluation revealed 38 yo woman with obesity, chronic back pain that has worsened in the last 4 days without a clear trigger. She has pain in her right flank, radiating to her right shoulder and arm. She is still ambulatory , has difficulty positionin g to go to the bathroom but no change in sensation. The IM Toradol yesterday did not help as it usually does. She has been using gabapentin , tylenol (1g BID), lidocaine patch (4-5 days).She has had imaging of her neck -issue at [facility] , and known herniated disks. Her Cr was 0.68 on 12/16/23. Impression :acute on chronic back pain Plan:15mg IM toradol, 40mg prednisone x 5 days Dispositio n: We discussed the diagnostic uncertaint y of home visits and the risk associated with this. In this case, the patient and I felt this to be an acceptable and reasonable amount of risk given the benefit of avoiding an ED visit. We discussed the need to seek care urgently/e mergently in the setting of any new or worsening serious symptoms, particular ly changes to consciousn ess, chest pain, dyspnea. [id number] Jamil Arboleda MD [facility] [address] [place] [phone] 03/06/2024 11:26:00 03/07/2024 11:52:24 Viral upper respiratory tract infection [id number] J06.9 Patient with symptoms of URI; coughing, runny nose, hx of asthma though no current wheezing. COVID/flu negative. No red flag signs on exam. No fever. Satting well on RA. Continue supportive care. Will rx Tessalong pearles. Discussed red flag signs and symptoms to present for higher level of care. Health Concerns Section Related Observation LastModified by Organization Detai ls LastModified Time None Recorded Concern Status LastModified by Organization Details LastModified Time None Recorded Advance Directives Directive None Recorded Payers Insurance Date Sequence Insurance Name Policy Number Policy [place]jo Covered Member ID Naranjo Member ID Guarantor Name 03/06/2024 1 [facility] - DOS ON OR AFTER 2022 - DUAL ELIGIBLE - [facility] OPTIONS AND ONE CARE (MEDICARE REPLACEMENT/ADV ANTAGE - HMO) Nelly Lanier [id number] Nelly Lanier Notes Date Note Type Note Provider Name and Address Organization Details Recorded Time 09/26/2023 text/html HPI: My ribs hurt from so much coughing Some one in family came out with flu but my body aches and my muscles and i give my self therapy still have asma .................... .................... .................... .................... .................... .................... .................... . [facility] Nurse Triage Notes (Lottie Hill): Chief Complaints: Asthma, Cough, Pain, Shortness of Breath/Dyspnea, URI PMH: COPD/Asthma Allergies: No Known Comments: Member requested visit via portal, called back by this nurse, identified via name and . Member with 3 day history of upper respiratory symptoms. Member with nasal and chest congestion, productive cough with clear thick phlegm, mild sob, +plueritic chest pain, body aches, +nausea, vomiting yesterday, no diarrhea, she thinks she may have had a fever yesterday, no chills. Member has used her wixela inhaler and moms albuterol with minimal effect. Members son had a fever a few days ago. Member would like to be evaluated. .................... .................... .................... .................... .................... .................... .................... . Choir Teacher Note From Yina Katz: Community Choir Teacher Brittanie Katz SC6 dispatched to a yellow for a 38 yof C/O covid S/S. Upon arrival, the pt was sitting up in bed, awake and alert, in no apparent distress. She stated that she had a dry cough for 3 days, and felt fatigued w/ body aches. She reported feeling feverish the day before as well as having a RAY. She denied dizziness, ear nose or throat pain, CP, SOB, abd pain, N/V/D, or urinary S/S. Lung sounds clear throughout. Flu negative, covid positive. C consulted; pt was given rx for paxlovid and symptomatic tx was discussed at length. Red flags discussed as well. .................... .................... .................... .................... .................... .................... .................... . Disposition: Chel CUTLER MD [address] [place] [address],[address], [place], [phone], [employer] 09/26/2023 23:02:07 09/30/2023 text/html CRC Nurse Triage Notes (Lottie Hill): Reason For Request: Pt reporting sciatica concerns and states not being able to move as much>requesting pain relief>also states she is COVID positive Chief Complaints: Pain PMH: COPD/Asthma Allergies: No Known Comments: Member calling in to place a referral, identified via name and . Member with PMHx asthma, sciatica and gastric bypass. Member with several sciatica pain since yesterday. Member has taken APAP and gabapentin with no relief. Member is unable to move or perform daily activities due to the pain. She denies any numbness or tingling, no loss of B/B. Member requesting visit for pain relief. .................... .................... .................... .................... .................... .................... .................... . Choir Teacher Note From Unruly Mccullough: Pt co sciatica pain for past 4 days. Pt denies cva tenderness , abdominal pain, cp, sob, NVD. Pt looking for pain management. Baseline vitals assessed. Lungs clear. Pt did sts she was Covid positive 9 days ago. [facility] contacted and 30mg toradol IM. Pt education on signs indicating the ER. Pt advised to follow up with pcp. .................... .................... .................... .................... .................... .................... .................... . Disposition: Fulfilled Breanna Calix MD [address] [place] [address],[address], [place], [phone], [employer] 09/30/2023 17:43:45 02/03/2024 text/html CRC Nurse Triage Notes (Anglela Mason): Chief Complaints: Joint pain/swelling PMH: COPD/Asthma, Rheumatoid Arthritis, Fibromyalgia Pain Assessment: Level 10 out of 10 Comments: Cardiac Catheterization Technologist verified the member's name//address and phone number. Member is a 38 yr old female, a/o3Pt is calling for unable to move well. She feels that on the right side of her lower back , she has sciatica , Arthritis, and fibromyalgia. The pain and joints are very tight and she is unable to move around well. The pain started this am. She takes gabapentin, tylenol, Celebrex. She has had a gastric bypass and is concerned with ulcers . She does not take any blood thinners or kidney disease. Education provided on the response time and the member was advised to monitor reported s/s and seek emergency treatment if needed Choir Teacher Organization Information for [facility] ? Legal Name: [facility] Transportation Address: [address] [place] [address], [place] [address], [employer] Supervisor: Norman Villalta MD CLIA No.: [id number] Choir Teacher POC Test Results from [facility] Urine Dipstick (09:18:23) Urine leukocytes: - JUVENTINO Urine nitrites: - NIT Urine urobilinogen: 0.2 URO Urine protein: - PRO Urine pH: 5.0 pH Urine blood: - BLO Urine specific gravity: 1.010 SG Urine ketones: - KET Urine bilirubin: - AILYN Urine glucose: - GLU .................... .................... .................... .................... .................... .................... .................... . Choir Teacher Note From [facility]: Patient alert and oriented laying on left side in bed. Patient complains of acute on chronic lower right back pain that radiates to her right leg. Patient states she s had same for years, pain increased yesterday. Pt states she took ibuprofen with some relief yesterday, none today.Patient states last visit for Toradol injection was in September. Patient denies kidney issues or bleeding. Patient denies urinary symptoms, but pain is close to CVA area. Patient states has been hard to ambulate. Patient pink warm dry secondary exam unremarkable. Patient ambulate to commode with assistance to provide urine sample. Urine dip negative. [facility] orders Toradol 30 mg, administered as noted without complication using the five rights. Red flags, patient education discussed. .................... .................... .................... .................... .................... .................... .................... . [facility] Consulted: Breanna Calix .................... .................... .................... .................... .................... .................... .................... . Disposition: Fulfilled Breanna Calix MD [address] [place] [address],[address], [place], [phone] 02/03/2024 10:56:48 02/04/2024 text/html CRC Nurse Triage Notes (Lottie Hill): Reason For Request: [facility] and is requesting a follow up visit>notes no improvements> Chief Complaints: Back pain PMH: COPD/Asthma, Rheumatoid Arthritis, Fibromyalgia Comments: Patient calling in to place a referral, identified via name and . In addition to PMH she has sciatica, carpal tunnel and has had gastric bypass. Patient with several sciatica pain since yesterday, [facility] given toradol with very minimal effect. She has taken Ibuprofen and gabapentin with no relief. Member is unable to move or perform daily activities due to the pain. She has some numbness in her right arm, no other numbness or tingling, no loss of B/B. She is aware we can only offer tylenol or toradol, otherwise she would need to seek, a higher level of care. She would like another visit for pain relief. .................... .................... .................... .................... .................... .................... .................... . Choir Teacher Note From Braydon Walker: Patient alert and oriented seated on couch. Patient complains of acute on chronic lower back pain bilateral next to spine. Patient reports radiation of pain up to shoulders and down to legs. Patient states Toradol shot we gave her two days ago did not change symptoms. Patient reports, numbness and tingling in right arm. Patient states it s difficult to go to the bathroom due to the way she has to sit patient and eyes in urinary symptoms. Patient denies difficult burning urination, frequency, odor or any other. Patient denies nausea vomiting, or any other.Patient pink warm dry secondary exam unremarkable. Good CSM s.[facility] orders Toradol 15 mg IM. Prednisone 40 mg PO. Patient advised to follow up with primary care. [facility] will prescribe more to patient pharmacy. Red flags and patient education discussed. .................... .................... .................... .................... .................... .................... .................... . [facility] Consulted: Jocelyne Bonner .................... .................... .................... .................... .................... .................... .................... . Disposition: Chel Bonner MD [address] [place] [address],[address], [place], [address], [employer] 02/04/2024 14:36:32 03/06/2024 text/html CRC Nurse Triage Notes (Levon Correa - RN): Reason For Request: Pt reporting severe shortness of breath, chest tightness going on 5 days and worsening Patient Reports: Increased work of breathing/labored with or without fever Denies: Unable to speak in full sentences without distress Discoloration of skin -cyanosis Needs to sleep sitting up, can t catch breath Shortness of breath in setting of confusion Chief Complaints: Breathing problems, Cough PMH: COPD/Asthma, Rheumatoid Arthritis, Fibromyalgia, Asthma Comments: Cardiac Catheterization Technologist verified the patient's name//address and phone number. Pt calling reporting flu like symptoms for the last five days. 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 Pt reports her chest feels tight & has trouble taking a deep breath. Pt also complaining of cough with clear sputum production; states in the morning sputum is black . Pt c/o SOB & fatigue; pt speaking in full, complete sentences at time of call. Intermittent auditory wheeze heard over the phone. Pt reports has hx of asthma, taking albuterol inhaler and breathing treatments without improvement in symptoms. Pt's voice sounds hoarse, concerned she could have bronchitis or another illness that has been going around the school where she works. Education provided on the response time and the patient was advised to monitor reported s/s and seek emergency treatment if needed -Nicholas Correa RN Choir Teacher Organization Information for Joce Alicea ? Legal Name: [facility] Transportation Address: [address] [place] [address], [place] [address], [employer] Supervisor: Norman Villalta MD [facility] No.: [id number] Choir Teacher POC Test Results from Joce Alicea Rapid COVID antigen (11:25:25) COVID: - Rapid influenza antigen (11:25:26) Flu: - .................... .................... .................... .................... .................... .................... .................... . Choir Teacher Note From Joce Alicea: This 38-year-old female with a history including but not limited to asthma, rheumatoid arthritis, fibromyalgia requested a visit today to address five days of rhinorrhea and cough. Patient states she just started using her nebulizer machine yesterday and has used it twice. Patient also uses an albuterol MDI, Singulair and saline nasal spray. Patient has fluticasone but is not been using it and does not take a daily allergy pill. Patient also has not tried any OTCs. Patient denies any severe shortness of breath, chest pain, dyspnea on exertion, headache, fevers, nausea, vomiting, diarrhea.Patient presents awake and alert, in no acute distress, speaking full sentences. Her vital signs are reasonably stable and she is afebrile. Nonfocal neurological exam. Normal gait. Lungs are clear throughout auscultation. Abdomen is soft, nontender, nondistended. No lower extremity edema. Rapid COVID and flu are both negative.I discussed benzonatate with patient and she requested a prescription. I also advised her to continue using her nebulizer every four to six hours, begin using fluticasone daily at night and I discussed starting on a daily antihistamine such as cetirizine. I instructed her to follow up with her primary care physician later this week if symptoms persist and to present to the emergency department for any new or worsening severe symptoms such as chest pain, severe shortness of breath, high fever, altered mental status. Patient was given the opportunity to ask questions and is agreeable to this plan. .................... .................... .................... .................... .................... .................... .................... . [facility] Consulted: Guillermo Arboleda .................... .................... .................... .................... .................... .................... .................... . Disposition: Fulfilled Jamil Arboleda MD [address] [place] [address],[address], [place], [address], [employer] 03/06/2024 12:28:18 OBGyn Episode No OBEpisode recorded.
--- OUTSIDE RECORDS SUMMARY | 2024-09-29 12:31 | XMS_ITS | Encounter Summary ---
Author Organization [employer] Address [address] [facility] [address] [place] [address] Care Team Providers Care Hip Hop Dancer Name Role Phone NameTucker MD Primary Care Provider [phone] QuilesMalik Unavailable [phone] Reason for Visit * Reason Comments Med Change Request Encounter Details Date Type Department Care Team ([facility] st Contact Info) Description 03/25/2024 Refill [facility] [address], [place] [phone] Name, MD Tucker [address] [place] [address] Social History Tobacco Use Types Packs/Day Years Used Date Smoking Tobacco: Never Passive Smoke Exposure: Never Smokeless Tobacco: Never Alcohol Use Standard Drinks/Week Comments Never 0 (1 standard drink = 0.6 oz pur e alcohol) Depression Answer Date Recorded Patient Health Questionnaire-9 Score 3 01/28/2024 Patient Health Questionnaire-9 Score 3 01/28/2024 Last PHQ-9: Questionnaire Data Not on file 1 03/29/2023 Housing Stability Answer Date Recorded What is your housing situation today? I have sonia lucero 01/28/[address] you li ve. Do you have problems with any of the following? None of the above 01/28/2024 Food Insecurity Answer Date Recorded Within the past 12 months, y ou worried that your food would run out before you got money to buy more: Never True 01/28/2024 Within the past 12 months,th e food you bought just didn't last and you didn't have enough money to get more: Never True 09/2023 Transportation Answer Date Recorded In the past 12 months, has l ack of transportation kept you from medical appts, meetings, work or from getting things needed for daily living? No 01/28/2024 Utilities Answer Date Recorded In the past 12 months, has t he electric, gas, oil or water company threatened to shut off services in your home? No 01/28/2024 Depression Answer Date Recorded Patient Health Questionnaire-2 Score 1 01/28/2024 Internet Access Answer Date Recorded Internet Access Q1 Yes 01/28/2024 Internet Access Q2 Not on file 01/28/2024 Comments Unknown Sex and Gender Information Value Date Recorded Sex Assigned at Female 01/20/2022 10:15 AM EDT Legal Sex Female 10:15 AM EDT Gender Identity Female 01/20/2022 10:15 AM EDT Sexual Orientation Choose not to disclose 2021 10:15 AM EDT documented as of this encounter Plan of Treatment Upcoming Encounters Date Type Department Care Team (Late st Contact Info) Description 12/28/2024 10:30 AM EDT Office Visit [facility] [address] [place] [address] Name, MD Tucker [address] [place] [address] documented as of this encounter Visit Diagnoses Not on filedocumented in this encounter Additional Health Concerns Assessment Noted Time PHQ-9 Depression Total Score: 3 01/28/20 24 9:46 AM EST documented as of this encounter Care Teams Hip Hop Dancer Relationship Specialty Start Date End Date Name, MD Tucker [address] [place] [address] PCP - General Family Medicine 08/13/15 Malik Quiles [address] [place] [address] Dental Office Machine Technician 05/12/24 documented as of this encounter
--- OUTSIDE RECORDS SUMMARY | 2024-09-29 12:31 | XMS_ITS | Clinical Summary ---
Author Organization [address] Address [address] [place] [phone] Phone Care Team Providers Care Big Data Solutions Architect Name Role Phone Name, Tucker PEARSON Primary Care Provider [phone] Surgical History Surgery Date Site/Laterality Comments FLEXIBLE SIGMOIDOSCOPY 02/27/2009 PROCEDURE: AL SIGMOIDOSCOPY FLX DX W/COLLJ SPEC BR/WA IF PFRMD; COMMENT: normal CHOLECYSTECTOMY 03/23/2009 PROCEDURE: AL CHOLECYSTECTOMY OTHER SURGICAL HISTORY 03/23/2009 PROCEDURE: AL COLPOSCOPY CERVIX UPPER/ADJACENT VAGINA; COMMENT: hasn't had pap since then GASTRIC BYPASS 03/23/2012 PROCEDURE: GASTRIC BYPASS FOR OBESIT SECTION 03/18/2016 PROCEDURE: HISTORICAL DELIVERY; COMMENT: intolerance OTHER SURGICAL HISTORY 10/2021 PROCEDURE: CERVICAL LEEP CONE BIOPSY SPCMN PATHOLOGY EX; COMMENT: for LINDA II - LEEP path negative Medical History Medical History Date Comments Morbid obesity ([facility] V24, [facility] V28) DX:Morbid obesity (HCC) Cholelithiasis DX:Cholelithiasi s Diabetes mellitus ([facility] V 24, [facility] V28) DX:Diabetes mellitus JOSE A (obstructive sleep apnea) DX :JOSE A (obstructive sleep apnea); COMMENT: resolved Depression DX:Depression; C OMMENT: well controlled RAD (reactive airway disease) DX :RAD (reactive airway disease) Tobacco abuse DX:Tobacco abuse ; COMMENT: stopped 12/02 Chronic back pain DX:Chronic lin k pain DVT, lower extremity ([facility] V24, [facility] V28) DX:DVT, lower extremity (HCC ); COMMENT: Never confirmed treated presumptively for 3 weeks for prevention after fractured leg Family History Medical History Relation Name Comments Diabetes Father Hypertension Father Cataracts Maternal Grandfather Diabetes Maternal Grandfather Glaucoma Maternal Grandfather Hypertension Maternal Grandfather Diabetes Maternal Grandmother Heart attack Maternal Grandmother Diabetes Mother Hypertension Mother Breast cancer Paternal Grandmother Diabetes Paternal Grandmother Blindness Neg Hx Colon cancer Neg Hx Macular degeneration Neg Hx Ovarian cancer Neg Hx Strabismus Neg Hx Relation Name Status Comments Father Alive not known Maternal Grandfather Maternal Grandmother Mother Alive dm, depression, htn, obesity Paternal Grandmother Social History Tobacco Use Types Packs/Day Years Used Date Smoking Tobacco: Former Cigarettes Smokeless Tobacco: Never Alcohol Use Standard Drinks/Week Comments Yes 0 (1 standard drink = 0.6 oz pur e alcohol) Comments Unknown Sex and Gender Information Value Date Recorded Sex Assigned at Not on file Legal Sex Female 5:43 PM EST Gender Identity Not on file Sexual Orientation Not on file Obstetrics History Last Filed Vital Signs Vital Sign Reading Time Taken Comments Blood Pressure 110/60 01/01/2023 4:06 PM EDT Pulse 76 01/01/2023 4:06 PM EDT Temperature - - Respiratory Rate - - Oxygen Saturation - - Inhaled Oxygen Concentration - - Weight 131 kg (288 lb) 01/01/2023 4:06 PM EDT Height 163.8 cm (5' 4.5 ) 01/01/2023 4:06 PM EDT Body Mass Index 48.67 01/01/2023 4:06 PM EDT Plan of Treatment Health Maintenance Due Date Last Done Comments Breast Cancer Screening 1984 Diabetes: Annual GFR (Glomerular Filtration Rate) 1984 Diabetes: Annual Foot Exam 1994 Diabetes: Annual Retina Eye Exam 1994 Hepatitis A Vaccines (1 of 2 - Risk 2-dose series) 09/12/2003 Hepatitis B Vaccines (3 of 3 - 19+ 3-dose series) 07/05/2019 05/10/2019, 08/17/2018 HIV Screening 03/01/2022 Hepatitis C Screening 03/01/2022 Medicare Annual Wellness Visit 03/01/2022 Social Influencers of Health Screening 03/01/2022 Cervical Cancer Screening: Pap Smear 11/26/2023 11/25/2022, 07/08/2021, 08/13/2018 Diabetes: Annual Urine Albumin-Creatinine Ratio (uACR) 04/25/2024 Diabetes: Blood Sugar Control Test (HGBA1C) 04/25/2024 Influenza Vaccine (#1) 2024 , 12/19/2022, 05/02/2022, Additional history exists Depression Screening 01/27/2025 01/28/2024 DTaP,Tdap,and Td Vaccines (3 - Td or Tdap) 02/18/2026 02/19/2016, 05/25/2012 Cholesterol Screening (Lipid Panel) 12/15/2028 12/16/2023 Pneumococcal Vaccine: Pediatrics (0 to 5 Years) and At-Risk Patients (6 to 49 Years) Completed 12/11/2023, 08/17/2012 COVID-19 Vaccine Completed 01/28/2024, 12/2021, 08/21/2020, Additional history exists HIB Vaccines Aged Out No longer eligi ble based on patient's age to complete this topic HPV Vaccines Aged Out No longer eligi ble based on patient's age to complete this topic IPV Vaccines Aged Out No longer eligi ble based on patient's age to complete this topic MMR Vaccines Aged Out No longer eligi ble based on patient's age to complete this topic Meningococcal ACWY Vaccine Aged Out N o longer eligible based on patient's age to complete this topic Meningococcal B Vaccine Aged Out No l onger eligible based on patient's age to complete this topic RSV Immunization Patients Under 20 months Aged Out No longer eligible based on patient's age to complete this topic Varicella Vaccines Aged Out No longer eligible based on patient's age to complete this topic Procedures Procedure Name Priority Date/Time Associated Diagnosis Comments PAP SMEAR Routine 11/25/2022 from Last 3 Months or Most Recently Relevant to Health Maintenance Results * Pap smear (11/25/2022) 11/25/2022 Narrative HISTORICAL TESTING LAB RESULTING AGENCY - 12/05/2022 6:26 AM EDT [id number] THINPREP PAP, IMAGED: NEGATIVE FOR SQUAMOUS INTRAEPITHELIAL LESION AND MALIGNANCY . JONATHAN LOPEZ(ASCP) (CASE ELECTRONICALLY SIGNED 12 04 2022) RESULT OF APTIMA HIGH RISK HPV ASSAY: HIGH RISK HPV: NEGATIVE (SEROTYPES 16,18,31,33,35,39,45,51,52,56,58,59,66,68) COMPLETED ON 2022-11-27 ADEQUACY: SATISFACTORY ENDOCERVICAL/TRANSFORMATION ZONE COMPONENT PRESENT. SOURCE: THINPREP PAP HPV ANY DX: REFLEX 16 AND 18, CERVICAL, IMAGED CLINICAL INFORMATION: HPV ANY DIAGNOSIS. PAP HX NEGATIVE, [Z01.419] Anoop Smart DO LAB CYTOLOGY ORDERABLES Final Result HISTORICAL TESTING LAB RESULTING AGENCY from Last 3 Months or Most Recently Relevant to Health Maintenance Insurance MEDICAID - [place] [facility] MEDICARE Member Subscriber Plan / Payer (Ef fective 2018-Present) Name:Nelly Lanier Relation to Subscriber:Self Name:Nelly Lanier Payer ID:[id number] Group ID:[id number] Type:Not on file Address: [address] [place] [address] Care Teams Big Data Solutions Architect Relationship Specialty Start Date End Date Name, MD Tucker [address] [place], [place] PCP - General Internal Medicine 03/09/19
[2024-09-29 14:20] LABS: MANUAL DIFF FLAG NO
[2024-09-29 14:37] LABS: Hematocrit 35.4 % (37.0-47.0); Hemoglobin 11.3 g/dl (12.0-16.0); Imm Gran Abs Auto 0.01 X10*3/uL (0.00-0.03); Imm Gran Pct Auto 0.2 % (0.0-0.4); Lymphocytes Absolute Auto 1.7 X10*3/uL (1.2-4.9); Mean Corpuscular HGB Conc 31.9 g/dl (31.0-35.0); Mean Corpuscular Hemoglobin 24.0 pg (27.0-33.0); Mean Corpuscular Volume 75.2 fL (80.0-98.0); NRBC Abs Auto 0.000 X10*3/uL (0.0-0.012); NRBC Pct Auto 0.0 /100WBC (0.0-0.2); Platelet Count 149 X10*3/uL (160-400); Red Blood Count 4.71 X10*6/uL (4.20-5.50); White Blood Count 5.8 X10*3/uL (4.8-10.8)
[2024-09-29 14:48] LABS: Alanine Aminotransferase 19 U/L (0-31); Albumin Level 4.0 g/dL (3.5-5.0); Alkaline Phosphatase 67 U/L (39-117); Anion Gap 10 (12-20); Aspartate Amino Transferase 20 U/L (5-31); Blood Urea Nitrogen 11 mg/dL (9-16); Calcium 8.8 mg/dL (8.4-10.2); Carbon Dioxide 26 mmol/L (22-29); Chloride 106 mmol/L (96-108); Estimated Glomerular Filt Rate > 60; Iron 30 mcg/dL (30-160); Percent Iron Saturation 8 % (15-50); Potassium 4.0 mmol/L (3.3-5.1); Sodium 138 mmol/L (135-145); Total Iron Binding Capacity 386 mcg/dL (228-428); Total Protein 6.8 g/dL (6.5-8.0); Unsaturated Iron Binding 356 ug/dL
[2024-09-29 15:04] LABS: Ferritin 9 ng/mL (10-250); Parathyroid Hormone Intact 50.5 pg/mL (8.7-77.1)
[2024-09-29 15:16] LABS: Folate 12.5 ng/mL (> or = 4.0); Vitamin B12 406 pg/mL (200-900)
== END 2024-09-29 12:07 | disposition home or self-care (01) ==
LOC: HO.HHCL 12:06
PROVIDERS: PCP Internal Medicine Geriatric Medicine; Visit Provider Internal Medicine Geriatric Medicine
DX: Z98.84 Bariatric surgery status (principal)
CPT/HCPCS: 36415; 80053; 82306; 82607; 82728; 82746; 83540; 83970; 85025

== ENCOUNTER 2024-10-12 12:53 | Outpatient (AMB) | payer OTHER, SELFPAY ==
--- NOTE | 2024-10-12 12:57 | A.OFFVIS_ITS ---
Vital Signs 10/12/24 13:04 Height 5 ft 4 in Weight 271 lb BMI 46.5 Intake Visit Reasons: Bilateral knee pains, Low back pain Intake Note: Nelly is a 39 year old female who presents with complaints of progressively worsening low back pain which radiates down to both of her feet. The patient describes her back pain as sharp in nature. Her back pain has gotten worse over the last 2 years in spite of continued non operative treatments. She has failed the last 6 weeks of conservative treatment which has included Tylenol, anti- inflammatory medicines, physical therapy exercises and a home exercise program. She also reports intermittent weakness in her legs. She has had multiple falls because of the weakness. She also reports numbness and tingling in both of her lower extremities. The patient has mild to moderate intermittent discomfort in both of her knees as well. She has had cortisone injections in the past which gave her no relief. Allergies No Known Allergies (No Known Allergies*) Allergy (Verified 10/12/24 13:03) Medication List - Last Reconciled 10/12/24 by Romulo Tate MD acetaminophen (Tylenol Extra Strength) 500 mg PO Q6H PRN acetaminophen ER 650 mg PO Q12H albuterol sulfate 90 mcg/actuation (Ventolin HFA) 2 puffs inhalation Q4-6H PRN 30 days calcium citrate-vitamin D3 500 mg-12.5 mcg (500 unit) tabs PO ferrous sulfate 324 mg PO DAILY fluticasone propion-salmeterol 250-50 mcg/dose (Wixela Inhub) 1 inh inhalation BID 30 days inhalational spacing device (Compact Space Chamber) As directed lorazepam 1 mg PO DAILY PRN omeprazole 20 mg PO DAILY sertraline 200 mg PO QAM zolpidem 5 mg PO BEDTIME PRN PFSH Medical History JOSE A (obstructive sleep apnea) Allergic rhinitis Bronchitis JOSE A on CPAP Diabetes mellitus JOSE A on CPAP Morbid obesity 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 Social History Alcohol intake: never Patient Tobacco Use Status: Former Tobacco user Physical Exam Vital Signs: BMI result Body Mass Index 46.5 Const Other: Well-nourished well-developed very friendly female awake alert and oriented x3 in no acute distress Back/Spine/Pelvis Other: Low back examination shows bilateral paraspinal muscle tenderness, pain with range of motion, positive straight leg raise test bilaterally at 70 degrees, 4/5 strength with testing of her right hip flexors and knee extensors when compared to 5/5 strength on her left side Extrem Other: Bilateral knee examination shows minimal effusions, mild crepitus with range of motion, tenderness along her medial joint lines, positive Dilcia's test, no instability Results Reviewed Results Reviewed: X-rays of the patient's bilateral knee show mild diffuse joint space narrowing, no acute bony abnormalities Assessment & Plan Assessment & Plan (1) Low back pain radiating to both legs: Code(s): M54.50 - Low back pain, unspecified; M79.604 - Pain in right leg; M79.605 - Pain in left leg Category: Medical (2) Bilateral knee pain: Code(s): M25.561 - Pain in right knee; M25.562 - Pain in left knee Category: Medical Plan Ms. Lanier presents with progressively worsening low back pain which radiates down both of her legs most likely due to lumbar stenosis or a disc herniation. Thus, I will send the patient for an MRI of her lumbar spine for further evaluation. I will see her back once the MRI is completed to discuss the findings and treatment options. She will call me prior to that time should her symptoms worsen in any way. She also has bilateral knee pains due to early degenerative joint disease as well as possible medial meniscus tearing. At this point her knee pains are tolerable to her. Feel free to call me at any time should questions regarding her orthopedic management arise. Thank you very much for asking me to see this very friendly patient. I spent 22 minutes in reviewing the patient's records and imaging studies, seeing the patient and documenting in the medical record. Orders: Orders MR lumbar spine wo con 10/13/24 M54.50 - Low back pain, unspecified, M79.604 - Pain in right leg, M79.605 - Pain in left leg Coding Level of Care Code New Pt Level 3 (15569) Complex EM visit Add On G2211 Diagnoses Low back pain radiating to both legs M54.50; M79.604; M79.605 Bilateral knee pain M25.561; M25.562
[2024-10-12 13:04] VITALS: BMI 46.5
--- OUTSIDE RECORDS SUMMARY | 2024-10-12 13:16 | XMS_ITS | Clinical Summary ---
Author Organization [address] Address [address] [place] [phone] Phone Care Team Providers Care Truck Terminal Manager Name Role Phone Name, Tucker PEARSON Primary Care Provider [phone] Surgical History Surgery Date Site/Laterality Comments FLEXIBLE SIGMOIDOSCOPY 02/27/2009 PROCEDURE: GA SIGMOIDOSCOPY FLX DX W/COLLJ SPEC BR/WA IF PFRMD; COMMENT: normal CHOLECYSTECTOMY 03/23/2009 PROCEDURE: GA CHOLECYSTECTOMY OTHER SURGICAL HISTORY 03/23/2009 PROCEDURE: GA COLPOSCOPY CERVIX UPPER/ADJACENT VAGINA; COMMENT: hasn't had pap since then GASTRIC BYPASS 03/23/2012 PROCEDURE: GASTRIC BYPASS FOR OBESIT SECTION 03/18/2016 PROCEDURE: HISTORICAL DELIVERY; COMMENT: intolerance OTHER SURGICAL HISTORY 10/2021 PROCEDURE: CERVICAL LEEP CONE BIOPSY SPCMN PATHOLOGY EX; COMMENT: for LINDA II - LEEP path negative Medical History Medical History Date Comments Morbid obesity ([facility] V24, [facility] V28) DX:Morbid obesity (HCC) Cholelithiasis DX:Cholelithiasi s Diabetes mellitus ([facility] V 24, [facility] V28) DX:Diabetes mellitus JOSE A (obstructive sleep apnea) DX :JOSE A (obstructive sleep apnea); COMMENT: resolved Depression DX:Depression; C OMMENT: well controlled RAD (reactive airway disease) DX :RAD (reactive airway disease) Tobacco abuse DX:Tobacco abuse ; COMMENT: stopped 12/02 Chronic back pain DX:Chronic lin k pain DVT, lower extremity ([facility]/ C V24, [facility] V28) DX:DVT, lower extremity (HCC ); COMMENT: [...] Screening: Pap Smear 11/26/2023 11/25/2022, 07/08/2021, 08/13/2018 Depression Screening 03/23/2024 Diabetes: Annual Urine Albumin-Creatinine Ratio (uACR) 04/25/2024 Diabetes: Blood Sugar Control Test (HGBA1C) 04/25/2024 Influenza Vaccine (#1) 2024 , 12/19/2022, 05/02/2022, Additional history exists DTaP,Tdap,and Td Vaccines (3 - Td or [...] RESULTING AGENCY - 12/05/2022 6:26 AM EDT [id number] THINPREP PAP, IMAGED: NEGATIVE FOR SQUAMOUS INTRAEPITHELIAL [...] Most Recently Relevant to [place] [address] [place]ICA[place] - [place] [facility] MEDICARE Member Subscriber Plan / Payer (Ef fective 2018-Present) Name:Nelly Lanier Relation to Subscriber:Self Name:Nelly Lanier Payer ID:[id number] Group ID:[id number] Type:Not on file Address: [address] [place] [address] Care Teams Truck Terminal Manager Relationship Specialty Start Date End Date Name, MD Tucker [address] [place] [address] PCP - General Internal Medicine 03/09/19
--- OUTSIDE RECORDS SUMMARY | 2024-10-12 13:16 | XMS_ITS | Encounter Summary ---
Author Organization [employer] Address [address] [facility] [address] [place] [address] Care Team Providers Care Adjunct Physics Instructor Name Role Phone NameTucker MD Primary Care Provider [phone] QuilesMalik Unavailable [phone] Reason for Visit * Reason Comments Med Change Request Encounter Details Date Type Department Care Team ([facility] st Contact Info) Description 03/25/2024 Refill [facility] [address], [place] [id number] Name, MD Tucker [address] [place] [address] Social History Tobacco Use Types Packs/Day Years [...] Description 12/28/2024 10:30 AM EDT Office Visit [facility] [address] [place] [address] Name, MD Tucker [address] [place] [address] documented as of this encounter Visit Diagnoses Not on filedocumented in this encounter Additional Health Concerns Assessment Noted Time PHQ-9 Depression Total Score: 3 01/28/20 24 9:46 AM EST documented as of this encounter Care Teams Adjunct Physics Instructor Relationship Specialty Start Date End Date Name, MD Tucker [address] [place] [address] PCP - General Family Medicine 08/13/15 Malik Quiles [address] [place] [address] Dental Precision Lens Technician 05/12/24 documented as of this encounter
--- OUTSIDE RECORDS SUMMARY | 2024-10-12 13:16 | XMS_ITS | Data Portability ---
Author Organization [employer] [facility], [facility] Address [address] [place] [address] Care Team Providers Care Coin Machine Servicer Repairer Name Role Phone HIM [facility] OTHER [facility] Primary Care Provider [phone] Assessment Encounter Date Assessment Date Assessment LastModified by Organization Details LastModified Time 09/30/2023 09/30/2023 I provided real -time medical direction via phone for this encounter and was available for additional phone-based assistance as needed. I have reviewed and agree with the Assessment and Plan as documented by the Hospice Coordinator. Patient given the opportunity to ask questions. Our service contacted for an assessment of: Chronic BACK pain and sciatica As per above, patient with hx of chronic pain in the low back and also sciatica. No new or worsening red S&S. No new bowel/bladder symptoms. No new gait abnl. No new neurological signs, symptoms or deficits. Per nut culler on the scene, VSS, non-toxic. Neuro grossly [...] Assessment and Plan as documented by the Hospice Coordinator. Patient given the opportunity to ask questions. Our service contacted for an assessment of: Chronic right back pain As per above, patient with hx of chronic right-sided back pain. No new or worsening red S&S. No new bowel/bladder symptoms. No new gait abnl. No new neurological signs, symptoms or deficits. Per nut culler on the scene, VSS, non-toxic. Neuro grossly [...] Ag, QL IA, respiratory specimen [address], [id number] 4 01:47:53 rapid flu (A+B) [address], [address] 4 01:47:37 urinalysis, dipstick [address], [address] 4 19:05:01 rapid SARS CoV 2 Ag, QL IA, respiratory specimen [address], [address] 4 18:53:41 rapid flu (A+B) [address], [address] 22:55:18 Referral None recorded. Procedures None recorded. Surgeries None recorded. Imaging None recorded. Medication Orders benzonatate 100 mg capsule 2023 024 [id number] [address] [place], [address], 4 11:40:51 ketorolac 30 mg/mL injection solution 2023 024 [id number] [address] [place] [address], [address], 4 13:04:11 prednisone 20 mg tablet 2023 024 [id number] [address] [place] [address], [address], 4 13:04:11 prednisone 20 mg tablet 2023 024 [id number] [address] [place] [address], [address], 4 14:36:30 ketorolac 30 mg/mL (1 mL) injection solution 2023 024 [address] [place], [address], 4 10:36:09 ketorolac 30 mg/mL injection solution [address] [place], [place] [address], [address] [place] [address], [address], 4 17:42:56 Paxlovid 300 mg (150 mg x 2)-100 mg tablets in a dose pack 2023 024 [id number], [address] [place] [address], [address], 4 18:53:43 Patient TargetsNo targets recorded. Patient InstructionsNo instructions recorded. Reason for Referral None Reported. Results Created Date Observation Date Name Description Value Unit Range Abnormal Flag Note LastModifiedBy Organization Detail LastModifiedTime 09/26/19 24 09/26/2023 rapid flu (A+B) Flu negati ve Not Available [facility] ed [address] [place] [address], [id number] 09/26/2023 22:55:11 09/26/19 24 09/26/2023 rapid SARS CoV 2 Ag, QL IA, respi rator y speci men rapid SARS CoV 2 Ag, QL IA, respiratory specimen positi ve Not Available [address], [address] 09/26/2023 18:53:22 Result Notes None recorded. Medical [...] % 98 [degF] 116 mm[Hg] Not Available [employer] 4 19:20:21 Date Recorded Body weight Respiratory rate Heart rate Body temperature Oxygen saturation Oxygen saturation in Arterial blood by Pulse oximetry Systolic And Diastolic Provider Name and Address Organization Details Last Updated DateTime 4 285249. 68 g 16 /min 90 /min 98.2 [degF] 98 % 98 % 126/94 mm[Hg] Not Available [employer] 4 17:41:37 Date Recorded Oxygen saturation Oxygen saturation in Arterial blood by Pulse oximetry Respiratory rate Body temperature Body weight Heart rate Body height Systolic And Diastolic Provider Name and Address Organization Details Last Updated DateTime 4 98 % 98 % 14 /min 97.6 [degF] 731249. 6 g 92 /min 152.4 cm 145/80 mm[Hg] Not Available [employer] 4 10:04:03 Date Recorded Body temperature Respiratory rate Oxygen saturation Oxygen saturation in Arterial blood by Pulse oximetry Body height Heart rate Body weight Systolic And Diastolic Provider Name and Address Organization Details Last Updated DateTime 4 98 [degF] 14 /min 98 % 98 % 157.48 cm 71 /min 528061. 6 g 128/86 mm[Hg] Not Available [employer] 4 12:46:24 Date Recorded Oxygen saturation Oxygen saturation in Arterial blood by Pulse oximetry Respiratory rate Body height Heart rate Body temperature Body weight Systolic And Diastolic Provider Name and Address Organization Details Last Updated DateTime 4 99 % 99 % 16 /min 162.56 cm 82 /min 97.6 [degF] 166623. 128 g 107/76 mm[Hg] Not Available [employer] 4 11:26:02 Social History None recorded. Functional Status None recorded. Mental Status None recorded. Family History Nothing Reported. Medical History No medical history recorded. Gynecological HistoryNo gynecological history recorded. Obstetrics History GPAL:G 0 P 0 0 0 0 Past Encounters Encounter ID Performer Location Encounter Start Date Encounter Closed Date Diagnosis/Indication Diagnosis SNOMED-CT Code Diagnosis ICD10 Code Diagnosis Note [id number] Carl Pierson MD [facility] [address] [place] [id number] 01/23/2023 15:48:21 01/27/2023 09:42:22 Sciatica 20578664 M54.31 Patient reports acute-on-c hronic pain from sciatica. No new features of the pain. No history or exam findings to suggest cord compromise or secondary back pain. Plan for pain control and continued outpatient treatment. [id number] Humaira Marquez MD [facility] [address] [place] [id number] 03/28/2023 19:02:25 03/29/2023 15:28:00 Exacerbation of intermittent asthma [id number] J45.21 I provided real -time medical direction via phone for this encounter, and was available for additional phone based assistance as needed. I have reviewed and agree with the Assessment and Plan as documented by the Hospice Coordinator. Patient given the opportunit y to ask questions. 37 yo w/ asthma. treated for exacerbati on with azithro around the , completed course. Sx recrudesce d 1-2d ago. not expectorat ing sputum, hadn't been taking nebs or controller inhalers. Discussed appropriat e use of inhalers and nebulizers . Will prescribe 5d course prednisone and fexofenadi ne for antihistam ine. [id number] GURVINDER CUTLER MD [facility] [address] [place] [phone] 09/26/2023 18:34:39 09/28/2023 14:31:54 Acute COVID-19 [id number] U07.1 Evaluation in the field was performed by my nut culler colleague, as noted above, I provided real-time [...] to tolerate PO or any other concerns. [id number] Breanna Calix MD [facility] [address] [place] [id number] 09/30/2023 17:41:35 09/30/2023 19:48:09 Right side sciatica [id number] 23011 M54.31 [id number] Breanna Calix MD [facility] [address] [place] [id number] 02/03/2024 10:03:59 02/03/2024 14:20:43 Chronic low back pain [id number] M54.50 [id number] Jocelyne Bonner MD [facility] [address] [place] [id number] 02/04/2024 12:46:20 02/04/2024 17:20:33 Chronic low back pain 157237220 M54.50 As noted, we were called to see this patient regarding concerns of back pain. Evaluation in the field was performed by my nut culler colleague, as noted above, I provided real-time [...] changes to consciousn ess, chest pain, dyspnea. [id number] Jamil Arboleda MD [facility] [address] [place] [address] [phone] 03/06/2024 11:26:00 03/07/2024 11:52:24 Viral upper respiratory tract infection [id number] J06.9 Patient with symptoms of URI; coughing, [...] Naranjo Member ID Guarantor Name 03/06/2024 1 [facility] - DOS ON OR AFTER 2022 - DUAL ELIGIBLE - [facility] OPTIONS AND ONE CARE (MEDICARE REPLACEMENT/ADV ANTAGE - HMO) Nelly Lanier [id number] Nelly Lanier Notes Date Note Type Note Provider Name and Address Organization Details Recorded Time 09/26/2023 text/html ROS as noted in the HPI HPI: My ribs hurt from so much [...] .................... .................... .................... .................... .................... .................... . Hospice Coordinator Note From Yina Katz: Community Hospice Coordinator Brittanie Katz SC6 dispatched to a [facility] for a 38 yof C/O covid S/S. [...] .................... .................... .................... .................... . Disposition: Fulfilled GURVINDER CUTLER MD [address] [place] [address],[address], [place], [address], [employer] 09/26/2023 23:02:07 09/30/2023 text/html CRC Nurse Triage [...] .................... .................... .................... .................... .................... .................... . Hospice Coordinator Note From Unruly Mccullough: Pt co sciatica pain for past 4 days. Pt denies cva tenderness , abdominal pain, cp, sob, NVD. Pt looking for pain management. Baseline vitals assessed. Lungs clear. Pt did sts she was Covid positive 9 days ago. [facility] contacted and 30mg toradol IM. Pt education on signs indicating the ER. Pt advised to follow up with pcp. .................... .................... .................... .................... .................... .................... .................... . Disposition: Fulfilled Breanna Calix MD [address] [place] [address],[address], [place], [address], [employer] 09/30/2023 17:43:45 02/03/2024 text/html CRC Nurse Triage Notes (Angella Mason): Chief Complaints: Joint pain/swelling PMH: COPD/Asthma, Rheumatoid Arthritis, Fibromyalgia Pain Assessment: Level 10 out of 10 Comments: Fruit Harvest Machine Operator verified the member's name//address and phone number. [...] s/s and seek emergency treatment if needed Hospice Coordinator Organization Information for Braydon Walker Business Legal Name: [facility] Transportation Address: [address] [place] [address], [place] [address], Telephone Quotation Clerk: Norman Villalta MD [facility] No.: [id number] Hospice Coordinator POC Test Results from Braydon Walker Urine Dipstick (09:18:23) Urine leukocytes: - JUVENTINO Urine nitrites: - NIT Urine urobilinogen: 0.2 URO Urine protein: - PRO Urine pH: 5.0 pH Urine blood: - BLO Urine specific gravity: 1.010 SG Urine ketones: - KET Urine bilirubin: - AILYN Urine glucose: - GLU .................... .................... .................... .................... .................... .................... .................... . Hospice Coordinator Note From Braydon Walker: Patient alert and [...] to provide urine sample. Urine dip negative. [facility] orders Toradol 30 mg, administered as noted without complication using the five rights. Red flags, patient education discussed. .................... .................... .................... .................... .................... .................... .................... . [facility] Consulted: Breanna Calix .................... .................... .................... .................... .................... .................... .................... . Disposition: Fulfilled Breanna Calix MD [address] [place] [address],[address], [place], [address], [employer] 02/03/2024 10:56:48 02/04/2024 text/html CRC Nurse Triage Notes (Lottie Hill): Reason For Request: Pt was seen by Juwan on 02/03/24 for pain and is requesting a follow up visit>notes no improvements> Chief Complaints: Back pain PMH: COPD/Asthma, Rheumatoid Arthritis, Fibromyalgia Comments: Patient calling in to place a referral, identified via name and . In addition to PMH she has sciatica, carpal tunnel and has had gastric bypass. Patient with several sciatica pain since yesterday, seen by [facility] and given toradol with very minimal effect. [...] .................... .................... .................... .................... .................... .................... . Hospice Coordinator Note From Braydon Walker: Patient alert and [...] warm dry secondary exam unremarkable. Good CSM s.[facility] orders Toradol 15 mg IM. Prednisone 40 mg PO. Patient advised to follow up with primary care. [facility] will prescribe more to patient pharmacy. Red flags and patient education discussed. .................... .................... .................... .................... .................... .................... .................... . [facility] Consulted: Jocelyne Bonner .................... .................... .................... .................... .................... .................... .................... . Disposition: Fulfilled Jocelyne Bonner MD [address] [place] [address],[address], [place], [address], [employer] 02/04/2024 14:36:32 03/06/2024 text/html ROS as noted in the HPI CRC Nurse Triage Notes (Levon Correa - [...] PMH: COPD/Asthma, Rheumatoid Arthritis, Fibromyalgia, Asthma Comments: Fruit Harvest Machine Operator verified the patient's name//address and phone number. [...] emergency treatment if needed -Nicholas Correa RN Hospice Coordinator Organization Information for Joce Alicea [employer] Legal Name: [facility] Transportation Address: [address] [place] [address], [place] [address], Telephone Quotation Clerk: Norman Villalta MD [facility] No.: [id number] Hospice Coordinator POC Test Results from Joce Alicea Rapid COVID antigen (11:25:25) COVID: - Rapid influenza antigen (11:25:26) Flu: - .................... .................... .................... .................... .................... .................... .................... . Hospice Coordinator Note From Joce Alicea: This 38-year-old female [...] .................... .................... .................... .................... .................... .................... . [facility] Consulted: Guillermo Arboleda .................... .................... .................... .................... .................... .................... .................... . Disposition: Fulfilled Jamil Arboleda MD [address] [place] [address],[address], [place], [address], [employer] 03/06/2024 12:28:18 OBGyn Episode No OBEpisode recorded.
== END 2024-10-12 13:17 | disposition home or self-care (01) ==
LOC: HO.HOS 12:54
PROVIDERS: PCP Internal Medicine Geriatric Medicine; Visit Provider Orthopaedic Surgery
DX: M54.50 Low back pain, unspecified (principal); M79.604 Pain in right leg; M79.605 Pain in left leg; M25.561 Pain in right knee; M25.562 Pain in left knee
CPT/HCPCS: 99203; G2211

== ENCOUNTER → 2024-10-12 12:53 | Outpatient (BNVA) | payer OTHER, SELFPAY | PROVIDERS: PCP Internal Medicine Geriatric Medicine; Visit Provider Orthopaedic Surgery | DX: M79.604 Pain in right leg (principal); M79.605 Pain in left leg; M25.561 Pain in right knee; M25.562 Pain in left knee; M54.50 Low back pain, unspecified | CPT/HCPCS: 99202 ==

== ENCOUNTER 2024-12-30 08:47 | Outpatient (REF) | payer OTHER, SELFPAY ==
--- OUTSIDE RECORDS SUMMARY | 2024-12-28 10:30 | XMS_ITS | Encounter Summary ---
Author Organization [employer] Address [address] [place] [address] [address] [place] [address] Care Team Providers Care Presser And Blocker Knitted Goods Name Role Phone Tucker Omalley MD Primary Care Provider [phone] Malik Quiles Unavailable Unavailable Reason for Referral * Consultation (Routine) - Authorized Specialty Diagnoses / Procedures Referred By Ivelisse fish Referred To Contact Family Medicine Diagnoses Seborrheic keratosis Tucker Omalley MD [address] [place] [address] Phone: tel: fax: Referral ID Status Reason Start Date Expiration Date Visits Requested Visits Authorized [id number] Authorized Specialty Services Required 12/28/2024 12/28/2025 1 1 Reason for Visit * Reason Comments Follow-up Encounter Details Date Type Department Care Team ([facility] st Contact Info) Description 12/28/2024 10:30 AM EDT Office Visit [facility] MEDICINE [address] [place] [phone] Tucker Omalley MD [address] [place] [phone] Severe obesity (BMI >= 40) (CMS/HCC) (HCC) (Primary Dx); Rash; Seborrheic keratosis; Anemia, unspecified type Social History Tobacco Use Types Packs/Day Years [...] Access Q2 Not on file 01/28/2024 Comments No Sex and Gender Information Value Date Recorded Sex Assigned at Female 01/20/2022 10:15 AM EDT Legal Sex Female 10:15 AM EDT Gender Identity Female 01/20/2022 10:15 AM EDT Sexual Orientation Choose not to disclose 2021 10:15 AM EDT Travel History Travel Start Travel End [place] 12/11/2024 12/17/2024 documented as of this encounter Last Filed Vital Signs Vital Sign Reading Time Taken Comments Blood Pressure 112/74 12/28/2024 10:37 AM EDT Pulse 80 12/28/2024 10:37 AM EDT Temperature 37.3 C (99.1 F) 12/28/2024 10:37 AM EDT Respiratory Rate 19 12/28/2024 10:37 AM EDT Oxygen Saturation - - Inhaled Oxygen Concentration - - Weight 119 kg (263 lb 6 oz) 12/28/2024 10:37 AM EDT Height 158.5 cm (5' 2.4 ) 12/28/2024 10:37 AM ED T Body Mass Index 47.55 12/28/2024 10:37 AM EDT documented in this encounter Progress Notes * Tucker Omalley MD - 12/28/2024 10:30 AM EDT Images from the original note were not included. Subjective Patient ID: Nelly Lanier is a 39 y.o. female who presents for Follow-up. Patient comes for follow-up visit. She is morbidly obese with comorbidities including DJD of the knees and chronic knee pain with difficulty ambulating. She had bariatric surgery in the past but she regained most of the weight she lost after the surgery. She has been on treatment with GLP-1 since November last year. She used Wegovy last year and she has been on Zepbound since March of this year. Her dose of Zepbound has increased gradually to 10 mg weekly. The only side effect she has noted is diarrhea. She does not have abdominal pain. Her treatment has been interrupted for at least 2 months because of problems with low supply of the Zepbound. She has lost 28 pounds since she started favian atment with GLP-1 even with a 2-month interruption in Zepbound treatment. The medication is controlling her appetite. She is avoiding junk food, she is eating smaller portions, she is trying to keep up with her protein intake with every meal and to make more healthy choices in general. She is physically active at work but does not exercise much out of work and she is encouraged to at least go forwalks. She has noted some improvement of her knee pain compared to prior to starting treatment Review of Systems Constitutional: Negative for chills and fever. HENT: Negative for sore throat. Respiratory: Negative for cough, shortness of breath and wheezing. Cardiovascular: Negative for chest pain, palpitations and leg swelling. Gastrointestinal: Negative for abdominal pain. Objective Vitals: 12/28/24 1037 BP: 112/74 BP Location: Left arm Patient Position: Sitting BP Cuff Size: Large adult Pulse: 80 Resp: 19 Temp: 99.1 ??F (37.3 ??C) TempSrc: Oral Weight: 263 lb 6 oz (119 kg) Height: 5' 2.4 (1.585 m) Physical Exam Exam conducted with a consumer credit counselor present. Constitutional: Appearance: Normal appearance. She is obese. Cardiovascular: Rate and Rhythm: Normal rate and regular rhythm. Pulmonary: Effort: Pulmonary effort is normal. No respiratory distress. Breath sounds: Normal breath sounds. No wheezing. Musculoskeletal: Right lower leg: No edema. Left lower leg: No edema. Skin: Comments: The patient was concerned about a small area of rash in the right lower back that is consistent with seborrheic keratosis. She requested a referral to dermatology and I agreed. Neurological: Mental Status: She is alert. 28 ponds wt loss since starting on GLP-1 She was about 3 months of Wegovy at the end of 2024 She has been on Zepbound since March Assessment/Plan: Diagnoses and all orders for this visit: Severe obesity (BMI >= 40) (CMS/[facility]) ([facility]) Comments: She is doing well. I plan to increase dose of Zepbound to 12.5 mg weekly when she is due for refill. She is encouraged to increase physical activity as tolerated. Avoid sweets and processed foods. She is encouraged to make sure she has enough protein with every meal. Rash Comments: Consistent with seborrheic keratosis. She was referred to dermatology as she requested. Seborrheic keratosis - Referral to [facility] Derm Skin Adult; Future Anemia, unspecified type Comments: Continue iron supplementation. Recheck CBC and ferritin. Avoid NSAIDs because of her previous history of bariatric surgery. Orders: - CBC auto differential; Future - Ferritin; Future documented in this encounter Plan of Treatment Scheduled Orders Name Type Priority Associated Diagnoses Orde r Schedule CBC auto differential Lab Routine Anemia, unspecified type Expected: 12/28/2024 (Approximate), Expires: 12/28/2025 Ferritin Lab Routine Anemia, unspecified type Expected: 12/28/2024, Expires: 12/28/2025 Scheduled Referrals Name Type Priority Associated Diagnoses Orde r Schedule Referral to [facility] Derm Skin Adult Outpatient Referral Routine Seborrheic keratosis Expected: 12/28/2024 (Approximate), Expires: 12/28/2025 documented as of this encounter Visit Diagnoses Diagnosis Severe obesity (BMI >= 40) (CMS/HCC) ([facility])- Primary Rash Rash and other nonspecific skin eruption Seborrheic keratosis Anemia, unspecified type documented in this encounter Additional Health Concerns Assessment Noted Time PHQ-9 Depression Total Score: 3 01/28/20 24 9:46 AM EST documented as of this encounter Care Teams Presser And Blocker Knitted Goods Relationship Specialty Start Date End Date Name, MD Tucker [address] [place] [address] PCP - General Family Medicine 08/13/15 Malik Quiles [address] [place] [address] Dental Student Driving Instructor 05/12/24 documented as of this encounter
--- OUTSIDE RECORDS SUMMARY | 2024-12-30 09:06 | XMS_ITS | Encounter Summary ---
Author Organization [employer] Address [address] [facility] 7t [place] [address] Care Team Providers Care Story Teller Name Role Phone Name, Tucker PEARSON Primary Care Provider [phone] Malik Quiles Unavailable Unavailable Reason for Visit * Reason Comments Med Change Request Encounter Details Date Type Department Care Team ([facility] Contact Info) Description 03/25/2024 Refill [facility] MEDICINE [address] [place], [place] [phone] Name, MD Tucker [address] [place] [address] Social History Tobacco Use Types Packs/Day Years [...] is your housing situation today? I have soniagenaro lucero 01/28/[address] you [...] EDT Travel History Travel Start Travel End [place] 12/11/2024 12/17/2024 documented as of this encounter Plan of Treatment Not on file documented as of this encounter Visit Diagnoses Not on filedocumented in this encounter Additional Health Concerns Assessment Noted Time PHQ-9 Depression Total Score: 3 01/28/20 24 9:46 AM EST documented as of this encounter Care Teams Story Teller Relationship Specialty Start Date End Date Name, MD Tucker [address] [place] [address] PCP - General Family Medicine 08/13/15 Malik Quiles [address] [place] [address] Dental Mount Loader 05/12/24 documented as of this encounter
--- OUTSIDE RECORDS SUMMARY | 2024-12-30 09:06 | XMS_ITS | Encounter Summary ---
Author Organization [employer] Address [address] [facility] [address] 7[address] [place] [address] Care Team Providers Care Auto Appraiser Name Role Phone Name, Tucker PERASON Primary Care Provider [phone] Malik Quiles Unavailable Unavailable Encounter Details Date Type Department Care Team (Latest Contact Info) Description 05/28/2018 Abstract [facility] Dental, Provider, DDS Social History Tobacco Use Types Packs/Day Years Used Date Smoking Tobacco: Never Assessed Comments Unknown Sex and Gender Information Value Date Recorded Sex Assigned at Female 01/20/2022 10:15 AM EDT Legal Sex Female 10:15 AM EDT Gender Identity Female 01/20/2022 10:15 AM EDT Sexual Orientation Choose not to disclose 2021 10:15 AM EDT Travel History Travel Start Travel End [place] 12/11/2024 12/17/2024 documented as of this encounter Plan of Treatment Not on file documented as of this encounter Visit Diagnoses Not on filedocumented in this encounter Care Teams Auto Appraiser Relationship Specialty Start Date End Date Name, MD Tucker [address] [place] [address] PCP - General Family Medicine 08/13/15 Malik Quiles [address] [place] [address] Dental Marketing Strategy Lead 05/12/24 documented as of this encounter
--- OUTSIDE RECORDS SUMMARY | 2024-12-30 09:06 | XMS_ITS | Encounter Summary ---
Author Organization [employer] Address [address] [facility] 7t [place] [address] Care Team Providers Care Tailor Helper Name Role Phone Name, Tucker PEARSON Primary Care Provider [phone] Malik Quiles Unavailable Unavailable Reason for Visit * Reason Comments Med Change Request Encounter Details Date Type Department Care Team ([facility] Contact Info) Description 03/25/2024 Refill [facility] MEDICINE [address] [place], [place] [phone] Name, MD Tucker [address] [place] [address] Social History Tobacco Use Types Packs/Day Years [...] EDT Travel History Travel Start Travel End [place] 12/11/2024 12/17/2024 documented as of this encounter Plan of Treatment Not on file documented as of this encounter Visit Diagnoses Not on filedocumented in this encounter Additional Health Concerns Assessment Noted Time PHQ-9 Depression Total Score: 3 01/28/20 24 9:46 AM EST documented as of this encounter Care Teams Tailor Helper Relationship Specialty Start Date End Date Name, MD Tucker [address] [place] [address] PCP - General Family Medicine 08/13/15 Malik Quiles [address] [place] [address] Dental General Service Officer 05/12/24 documented as of this encounter
--- OUTSIDE RECORDS SUMMARY | 2024-12-30 09:06 | XMS_ITS | Encounter Summary ---
Author Organization [employer] Address [address] [facility] 7t [place] [address] Care Team Providers Care Meat Boner And Slicer Name Role Phone Name, Tucker PEARSON Primary Care Provider [phone] Malik Quiles Unavailable Unavailable Encounter Details Date Type Department Care Team (Latest Contact Info) Description 12/28/2024 Travel Social History Tobacco Use Types Packs/Day Years [...] EDT Travel History Travel Start Travel End [place] 12/11/2024 12/17/2024 documented as of this encounter Plan of Treatment Not on file documented as of this encounter Visit Diagnoses Not on filedocumented in this encounter Additional Health Concerns Assessment Noted Time PHQ-9 Depression Total Score: 3 01/28/20 24 9:46 AM EST documented as of this encounter Care Teams Meat Boner And Slicer Relationship Specialty Start Date End Date Name, MD Tucker [address] [place] [address] PCP - General Family Medicine 08/13/15 Malik Quiles [address] [place] [address] Dental Airflight Attendants Supervisor 05/12/24 documented as of this encounter
--- OUTSIDE RECORDS SUMMARY | 2024-12-30 09:06 | XMS_ITS | Encounter Summary ---
Author Organization [employer] Address [address] [facility] [address] [place] [address] Care Team Providers Care Band Saw Operator Cake Cutting Name Role Phone Name, Tucker PEARSON Primary Care Provider [phone] Malik Quiles Unavailable Unavailable Reason for Visit * Reason Onset Date Comments chart prep 12/27/2024 Encounter Details Date Type Department Care Team ([facility] st Contact Info) Description 12/27/2024 Telephone [facility] [address] [place] [address] Tra Momin [place] chart prep Social History Tobacco Use Types Packs/Day Years [...] 12/11/2024 12/17/2024 documented as of this encounter Miscellaneous Notes * Telephone Encounter - Tra Momin [place] - 12/27/2024 6:10 PM EDT Chart Prep Labs: done Images: done Referrals: complete-notes in chart 10/12/24 1:00 PM [facility] Romulo Tate MD Vaccines due: Covid, Flu, Hep B, Hep A, and HPV Screenings: LMP Overdue care gaps: SBIRT documented in this encounter Plan of Treatment Not on file documented as of this encounter Visit Diagnoses Not on filedocumented in this encounter Additional Health Concerns Assessment Noted Time PHQ-9 Depression Total Score: 3 01/28/20 24 9:46 AM EST documented as of this encounter Care Teams Band Saw Operator Cake Cutting Relationship Specialty Start Date End Date Name, MD Tucker [address] [place] [address] PCP - General Family Medicine 08/13/15 Malik Quiles [address] [place] [address] Dental Preparer 05/12/24 documented as of this encounter
--- OUTSIDE RECORDS SUMMARY | 2024-12-30 09:07 | XMS_ITS | Encounter Summary ---
Author Organization [employer] Address [address] [facility] [address] 7[address] [place] [address] Care Team Providers Care Mobile Qa Tester Name Role Phone Name, Tucker PEARSON Primary Care Provider [phone] Malik Quiles Unavailable Unavailable Reason for Visit * Reason Comments Med Refill Encounter Details Date Type Department Care Team ([facility] st Contact Info) Description 07/08/2022 Refill [facility] [address] [place], [place] [phone] Name, MD Tucker [address] [place], [place] [phone] Social History Tobacco Use Types Packs/Day Years Used Date Smoking Tobacco: Never Passive Smoke Exposure: Never Smokeless Tobacco: Never Comments Unknown Sex and Gender Information Value Date Recorded Sex Assigned at Female 01/20/2022 10:15 AM EDT Legal Sex Female 10:15 AM EDT Gender Identity Female 01/20/2022 10:15 AM EDT Sexual Orientation Choose not to disclose 2021 10:15 AM EDT Travel History Travel Start Travel End [place] 12/11/2024 12/17/2024 COVID-19 Exposure Response Date Recorded In the last 10 days, have yo u been in contact with someone who was confirmed or suspected to have Coronavirus/COVID-19? No / Unsure 07/04/2022 12:46 PM EDT documented as of this encounter Plan of Treatment Not on file documented as of this encounter Visit Diagnoses Not on filedocumented in this encounter Care Teams Mobile Qa Tester Relationship Specialty Start Date End Date Name, MD Tucker [address] [place] [address] PCP - General Family Medicine 08/13/15 Malik Quiles [address] [place] [address] Dental Utilities Service Investigator 05/12/24 documented as of this encounter
--- OUTSIDE RECORDS SUMMARY | 2024-12-30 09:07 | XMS_ITS | Encounter Summary ---
Author Organization [employer] Address [address] [facility] 7t [place] [address] Care Team Providers Care Director Risk Name Role Phone Name, Tucker PEARSON Primary Care Provider [phone] Malik Quiles Unavailable Unavailable Reason for Visit * Reason Comments Med Refill Encounter Details Date Type Department Care Team ([facility] st Contact Info) Description 10/23/2024 Refill [facility] MEDICINE [address] [place], [place] [phone] Name, MD Tucker [address] [place] [address] Social History Tobacco Use Types Packs/Day Years [...] documented as of this encounter Care Teams Director Risk Relationship Specialty Start Date End Date Name, MD Tucker [address] [place] [address] PCP - General Family Medicine 08/13/15 Malik Quiles [address] [place] [address] Dental Rheumatology Specialist 05/12/24 documented as of this encounter
--- OUTSIDE RECORDS SUMMARY | 2024-12-30 09:07 | XMS_ITS | Encounter Summary ---
Author Organization [employer] Address [address] [place] [address] [address]t [place] [address] Care Team Providers Care Senior Oracle Adf Developer Name Role Phone Name, Tucker PEARSON Primary Care Provider [phone] Malik Quiles Unavailable Unavailable Encounter Details Date Type Department Care Team (Late st Contact Info) Description 10/13/2022 Orders Only [facility] MEDICINE [address] [place], [place] [phone] Geovanna Bradshaw LPN Social History Tobacco Use Types Packs/Day Years [...] EDT Travel History Travel Start Travel End [place] 12/11/2024 12/17/2024 documented as of this encounter Plan of Treatment Not on file documented as of this encounter Visit Diagnoses Not on filedocumented in this encounter Care Teams Senior Oracle Adf Developer Relationship Specialty Start Date End Date Name, MD Tucker [address] [place] [address] PCP - General Family Medicine 08/13/15 Malik Quiles [address] [place] [address] Dental Orthopedic Shoe Maker 05/12/24 documented as of this encounter
--- OUTSIDE RECORDS SUMMARY | 2024-12-30 09:07 | XMS_ITS | Encounter Summary ---
Author Organization [employer] Address [address] [facility] [address] [place] [address] Care Team Providers Care Physician Primary Care Sports Medicine Name Role Phone Name, Tucker PEARSON Primary Care Provider [phone] Malik Quiles Unavailable Unavailable Encounter Details Date Type Department Care Team (Late st Contact Info) Description 05/24/2024 Orders Only [facility] [address] [place], [place] [phone] ProviderZahraa MD Social History Tobacco Use Types Packs/Day Years [...] on file documented as of this encounter Procedures Procedure Name Priority Date/Time Associated Diagnosis Comments HM PAP/HPV Routine 11/25/2022 2:19 PM EDT documented in this encounter Results * HM PAP/HPV (11/25/2022 2:19 PM EDT) us Historical Provider HEALTH MAINTENANCE Final Result documented in this encounter Visit Diagnoses Not on filedocumented in this encounter Additional Health Concerns Assessment Noted Time PHQ-9 Depression Total Score: 3 01/28/20 24 9:46 AM EST documented as of this encounter Care Teams Physician Primary Care Sports Medicine Relationship Specialty Start Date End Date Name, MD Tucker [address] [place] [address] PCP - General Family Medicine 08/13/15 Malik Quiles [address] [place] [address] Dental Wind Farm Designer 05/12/24 documented as of this encounter
--- OUTSIDE RECORDS SUMMARY | 2024-12-30 09:07 | XMS_ITS | Clinical Summary ---
Author Organization [employer] Address [address] [facility] [address] [place] [address] Care Team Providers Care Button Clamper Name Role Phone Name, Tucker PEARSON Primary Care Provider [phone] Malik Quiles Unavailable Unavailable Allergies Active Allergy Reactions Criticality Noted Date Comments Lactose 10/21/2012 Medications zolpidem (Ambien) 10 MG tablet Take 10 mg by mouth if needed at bedtime. 06/24/19 23 Active sertraline (Zoloft) 100 MG tablet TAKE 2 TABLETS BY MOUTH EVERY DAY IN THE MORNING 06/24/19 23 Active LORazepam (Ativan) 1 MG tablet Take 1 mg by mouth if needed each day. 06/24/19 23 Active Diclofenac Sodium 1 % gel Apply 2 grams once a day to the affected skin 100 g 1 04/07/19 24 Active nystatin (Mycostatin) cream APPLY TOPICALLY TO THE AFFECTED AREA TWICE A DAY 15 g 1 06/30/19 24 Active gabapentin (Neurontin) 400 MG capsule TAKE 1 CAPSULE (400 MG) BY MOUTH 2 TIMES DAILY. 60 capsule 06/30/19 24 Active albuterol 108 (90 Base) MCG/ACT inhaler Inhale 2 puffs every 6 (six) hours if needed for wheezing. 18 g 11 12/11/19 24 Active Diclofenac Sodium 1 % gel Apply thin layer by topical route (quantity as directed on package insert) to affected area of pain 3 times daily as needed. 50 g 3 12/11/19 24 Active ferrous sulfate 324 (65 Fe) MG EC tablet Take 1 tablet (324 mg) by mouth Once per day. 90 tablet 1 01/28/20 24 Active omeprazole (PriLOSEC) [address] capsule Take 1 capsule (20 mg) by mouth before breakfast. 90 capsule 1 06/09/19 25 Active Wixela Inhub 500-50 MCG/ACT aerosol powder TAKE 1 PUFF BY MOUTH TWICE A DAY 60 each 1 06/28/19 25 Active albuterol 108 (90 Base) MCG/ACT inhaler INHALE 2 PUFFS BY MOUTH EVERY 4 TO 6 HOURS IF NEEDED 8.5 g 11 09/30/19 25 Active fluticasone (Flonase) 50 MCG/ACT nasal sprayIndicatio ns:Cough in adult Administer 1 spray into each nostril Once per day. Shake gently. Before first use, prime pump. After use, clean tip and replace cap. 16 g 2 10/22/19 25 Active Nebulizers misc 1 kit Every 4-6 hours as needed (for shortness of breath and wheezing). Active Zepbound 10 MG/0.5ML solution auto-injector INJECT 0.5 ML (10 MG) UNDER THE SKIN 1 (ONE) TIME PER WEEK. 2 mL 2 11/29/19 25 Active betamethasone valerate (Valisone) 0.1 % cream APPLY BY TOPICAL ROUTE A THIN LAYER TO THE AFFECTED AREA(S) 180 g 3 12/20/19 25 Active betamethasone valerate (Valisone) 0.1 % cream APPLY BY TOPICAL ROUTE A THIN LAYER TO THE AFFECTED AREA(S) 180 g 3 12/11/19 24 025 Discontinued Active Problems Problem Noted Date Diagnosed Date RLS (restless legs syndrome) 01/28/2024 Low ferritin 01/26/2023 01/26/2023 Acid reflux 01/26/2023 01/26/2023 Severe obesity (BMI >= 40) (CMS/HCC) 01/26/2023 01/26/2023 History of gastric bypass 07/04/2022 Steatosis of liver 07/04/2022 Hip pain 10/26/2017 01/26/2023 Knee pain 10/26/2017 01/26/2023 Flexor tenosynovitis of thumb 05/30/2016 Carpal tunnel syndrome 05/09/2016 Depressive disorder 08/13/2015 Chronic low back pain 08/13/2015 History of cholecystectomy 08/13/2015 Asthma 10/21/2012 Arthritis 10/21/2012 01/26/2023 Back problem 10/21/2012 01/26/2023 Kidney disease 10/21/2012 01/26/2023 Resolved Problems Problem Noted Date Diagnosed Date Resolved Date Sprain of knee 01/26/2023 01/26/2023 01/26/2023 Morbid obesity (CMS/HCC) 07/20/201708/2022 Type 2 diabetes mellitus 10/21/201208/2022 Encounters Date Type Department Care Team Description 12/28/2024 10:30 AM EDT Office Visit [facility] [address] [place] [phone] Tucker Omalley MD Severe obesity (BMI >= 40) (CMS/[facility]) ([facility]) (Primary Dx); Rash; Seborrheic keratosis; Anemia, unspecified type 12/28/2024 Travel 12/27/2024 Telephone [facility] [address] [place] [phone] Tra Momin MA chart prep 12/21/2024 Travel 12/17/2024 Refill [facility] [address] [place] [address] [phone] Tucker Omalley MD 11/26/2024 Refill [facility] [address] [place] [address] [phone] Tucker Omalley MD 11/10/2024 Telephone [facility] [address] [place] [phone] Tucker Omalley MD [employer] 10/23/2024 Refill [facility] [address] [place] [phone] Tucker Omalley MD 10/21/2024 11:00 AM EDT Office Visit [facility] [address] [place] [phone] Kriss Bhatti NP Moderate asthma with acute exacerbation, unspecified whether persistent (Primary Dx); Cough in adult 10/21/2024 Travel 10/06/2024 Results Follow-Up [facility] [address] [place] [phone] Tucker Omalley MD CBC auto differential, Iron And Total Iron Binding Capacity, Ferritin, Additional followed-up results: 4 09/29/2024 11:15 AM EDT Office Visit [facility] [address] [place] [address] Name, MD Tucker Severe obesity (BMI >= 40) (CMS/[facility]) (Primary Dx); History of bariatric surgery; Chronic pain of both knees; Osteoarthritis of knee, unspecified laterality, unspecified osteoarthritis type; Moderate asthma, unspecified whether complicated, unspecified whether persistent 09/29/2024 Telephone [facility] [address] [place] [address] Name, MD Tucker [employer] 09/29/2024 Travel from Last 3 Months Immunizations Immunization Administration Dates Next Due Hep B, adult 05/10/2019,08/17/2018 Influenza Injectable Quadriv alant Preservative Free IIV4 MDCK 12/19/2022,05/02/2022,02/25/2021 Influenza injectable quadriv alent IIV4 with preservative 12/23/2017 Influenza injectable quadriv alent preservative free 03/17/2019 Influenza, IIV3, injectable 11/30/2014,1 05/02/2013,01/24/2013,02/10,01/05/2010,02/27/2009 Influenza, seasonal, injecta ble, preservative free 12/11/2023,01/18/2016 Novel [id number], preservative-free 02/27/2009 Pfizer Covid-19 Vaccine 12+ 01/28/2024 Pneumococcal Conjugate PCV 20 12/11/2023 Pneumococcal Polysaccharide PPSV23 08/17/2012 Tdap 02/19/2016,05/25/2012 Social History Tobacco Use Types Packs/Day Years Used Date Smoking Tobacco: Never Passive Smoke Exposure: Never Smokeless Tobacco: Never Tobacco Cessation:Counseling Given: Not Answered Alcohol Use Standard Drinks/Week Comments Never 0 [...] EDT Travel History Travel Start Travel End [place] 12/11/2024 12/17/2024 Last Filed Vital Signs Vital Sign Reading Time Taken Comments Blood Pressure 112/74 12/28/2024 10:37 AM EDT Pulse 80 12/28/2024 10:37 AM EDT Temperature 37.3 C (99.1 F) 12/28/2024 10:37 AM EDT Respiratory Rate 19 12/28/2024 10:37 AM EDT Oxygen Saturation 98% 10/21/2024 11:14 AM EDT Inhaled Oxygen Concentration - - Weight 119 kg (263 lb 6 oz) 12/28/2024 10:37 AM EDT Height 158.5 cm (5' 2.4 ) 12/28/2024 10:37 AM ED T Body Mass Index 47.55 12/28/2024 10:37 AM EDT Plan of Treatment Health Maintenance Due Date Last Done Comments HIV Screening 1985 Family Planning (PISQ) 09/12/1999 HPV Vaccines (1 - 3-dose series) 09/12/1999 Hepatitis C Screening 2002 Hepatitis A Vaccines (1 of 2 - Risk 2-dose series) 09/12/2003 Hepatitis B Vaccines (3 of 3 - 19+ 3-dose series) 07/05/2019 05/10/2019, 08/17/2018 Dental Oral Exam 10/20/2024 04/21/2024, , 06/12/2017, Additional history exists Dental Prophylaxis 10/20/2024 04/21/2024, 0 05/28/2018, 06/11/2017, Additional history exists Influenza Vaccine (#1) 2024 , 12/19/2022, 05/02/2022, Additional history exists Depression Screening 01/27/2025 01/28/2024, 01/28/20 SDOH Screening 01/27/2025 01/28/2024 Dental X-Ray: Bitewings 04/22/2025 04/21/19, 03/24/2024, 12/14/2018, Additional history exists Disability Screening 12/21/2025 12/21/2024 Alcohol/Substance Use Screening 12/28/2025 12/28/2024 Tobacco Screening 12/28/2025 12/28/2024 Mammogram 01/20/2026 01/21/2024, 01/21/2024 DTaP/Tdap/Td Vaccines (3 - Td or Tdap) 02/18/2026 02/19/2016, 05/25/2012 Dental X-Ray: Full Mouth 04/22/2027 04/21/2024, 07/21 Cervical Cancer Screening 11/26/2027 HPV/Cotest 11/26/2027 Pap Smear 11/26/2027 11/25/2022 Lipid Panel 12/15/2028 12/16/2023, 01/22, 06/12/2021 Zoster Vaccines (1 of 2) 2034 RSV Patients and Patients Aged 60 years or older (1 - 1-dose 75+ series) 09/12/2059 Pneumococcal Vaccine: Pediatrics (0 to 5 Years) and At-Risk Patients (6 to 49) Years Completed 12/11/2023, 08/17/2012 COVID-19 Vaccine Completed 01/28/2024, 12/2021, 08/21/2020, Additional history exists HIB Vaccines Aged Out No longer eligi ble based on patient's age to complete this topic IPV Vaccines Aged Out No longer eligi ble based on patient's age to complete this topic Meningococcal B Vaccine Aged Out No l onger eligible based on patient's age to complete this topic Meningococcal Vaccine Aged Out No [place] maximo eligible based on patient's age to complete this topic RSV under 20 months Aged Out No longe r eligible based on patient's age to complete this topic Rotavirus Vaccines Aged Out No longer eligible based on patient's age to complete this topic Procedures Procedure Name Priority Date/Time Associated Diagnosis Comments POCT COVID-19 AG WINN ID NOW Routine 10/21/2024 12:02 PM EDT Cough in adult PTH, INTACT WITHOUT CALCIUM Routine 09/29/2024 12:14 PM EDT History of bariatric surgery VITAMIN B12/FOLATE, SERUM PANEL Routine 09/29/2024 12:14 PM EDT History of bariatric surgery VITAMIN D,25-OH,TOTAL,IA Routine 09/29/2024 12:14 PM EDT History of bariatric surgery COMPREHENSIVE METABOLIC PANEL Routine 09/29/2024 12:14 PM EDT History of bariatric surgery FERRITIN Routine 09/29/2024 12:14 PM EDT History of bariatric surgery IRON AND TOTAL IRON BINDING CAPACITY Routine 09/29/2024 12:14 PM EDT History of bariatric surgery CBC WITH AUTO DIFFERENTIAL Routine 09/29/2024 12:14 PM EDT History of bariatric surgery PROPHYLAXIS - ADULT Routine 04/21/2024 1 :00 PM EST INTRAORAL - COMPLETE SERIES OF RADIOGRAPHIC IMAGES Routine 04/21/2024 1:00 PM EST PERIODIC ORAL EVALUATION - ESTABLISHED PATIENT Routine 04/21/2024 1:00 PM EST BI US BREAST LIMITED LEFT Routine 01/21/2024 1:10 PM EDT LIPID PANEL, STANDARD Routine 12/16/2023 9:46 AM EDT Morbid obesity (CMS/HCC) HM PAP/HPV Routine 11/25/2022 2:19 PM EDT from Last 3 Months or Most Recently Relevant to Health Maintenance Results * POCT COVID-19 Ag Wnin ID NOW (10/21/2024 12:02 PM EDT) Pathologist [facility] Coronavirus Antigen PCR Negative Negative, Indeterminate, None Detected, Invalid, Specimen unsatisfactory for evaluation, Weakly Positive, 2+ Swab 10/21/2024 12:0 2 PM EDT Kriss Bhatti NP POINT OF CARE TEST ENTER/EDIT O RDERABLES Final Result * Vitamin D, 25-Hydroxy, Total, Immunoassay (09/29/2024 12:14 PM EDT) Pathologist [facility] Vitamin D 25-OH Total 37.3 >30 ng/mL [facility] Comment: Health Based Reference Values*< 20 ng/mL [id number] ng/mL Insufficient> 30 ng/mL Sufficient*Fransisco JONES. N Engl J Med. 2007;357:266-280There is no well-established upper level of normal vitamin Dlevels. Some laboratories use 50 ng/mL as an upper limit ofnormal. However, toxicity is patient-dependent and may occurat any level. Careful correlation with the patient'spresentation is necessary and, if there is concern forvitamin D toxicity, treatment should be consideredirrespective of the serum level.Care must be taken in interpreting Vitamin D results fromdifferent laboratories and methodologies. Published datademonstrated that results from patients undergoinghemodialysis may show a negative bias when tested withvarious automated 25-OH vitamin D assays when compared toLC-MS/MS.When testing samples from patients whose predominant form ofVitamin D is Vitamin D2, such as patients receiving VitaminD2 supplementation, results that are subtherapeutic shouldbe confirmed with another method such as LC-MS/MS. Blood Venous blood specimen / Unknown 09/29/2024 12:14 PM EDT 09/29/2024 2:10 PM EDT us Tucker Omalley MD LAB BLOOD ORDERABLES Final Resul t Performing Organization Address [facility] [address]/[facility] Co de Phone Number [facility] [address] [place] [phone] * Vitamin B12 (Cobalamin) and Folate Panel, Serum (09/29/2024 12:14 PM EDT) Pathologist [facility] Vitamin B12 406 200 - 900 pg/mL [facility] Comment:NORMAL 200-900 PG/ML INDETERMINATE 160-199 PG/ML DEFICIENT < 160 PG/ML Folate 12.5 > or = 4.0 ng/mL [facility] Comment:Reference Values:> o r = 4.0 ng/mL< 4.0 ng/mL suggests folate deficiency Methotrexate, aminopterin and folinic acid(leucovorin) are chemotherapeutic agents whose molecularstructures are similar to folate; therefore, the Architectfolate assay cannot be used for patients using these drugs. Blood Venous blood specimen / Unknown 09/29/2024 12:14 PM EDT 09/29/2024 2:10 PM EDT us Tucker Omalley MD LAB BLOOD ORDERABLES Final Resul t Performing Organization Address [facility] [address]/[facility] Co de Phone Number [facility] [address] [place] [phone] * (ABNORMAL) CBC auto differential (09/29/2024 12:14 PM EDT) Pathologist [facility] White Blood Count 5.8 4.8 - 10.8 X10*3/uL [facility] Red Blood Count 4.71 4.20 - 5.50 X10*6/uL [facility] Hemoglobin 11.3(L) 12.0 - 16.0 g/dl [facility] Hematocrit 35.4(L) 37.0 - 47.0 % [facility] Mean Corpuscular Volume 75.2(L) 80.0 - 98.0 fL [facility] Mean Corpuscular Hemoglobin 24.0(L) 27.0 - 33.0 pg [facility] Mean Corpuscular HGB Conc 31.9 31.0 - 35.0 g/dl [facility] Red Cell Distribution Width 17.6(H) 11.0 - 16.0 % [facility] Platelet Count 149(L) 160 - 400 X10*3/uL [facility] Neutrophils Percent Auto 60.1 45 - 73 % [facility] Imm Gran Pct Auto 0.2 0.0 - 0.4 % [facility] Lymphocytes Percent Auto 28.8 20 - 40 % [facility] Monocytes Percent Auto 7.5 2 - 11 % [facility] Eosinophils Percent Auto 3.1 0 - 4 % [facility] Basophils Percent Auto 0.3 0 - 2 % [facility] NRBC Pct Auto 0.0 0.0 - 0.2 /100WBC [facility] Neutrophils Absolute Auto 3.5 2.0 - 8.3 x10*3/uL [facility] Imm Gran Abs Auto 0.01 0.00 - 0.03 X10*3/uL [facility] Lymphocytes Absolute Auto 1.7 1.2 - 4.9 X10*3/uL [facility] Monocytes Absolute Auto 0.4 0.1 - 1.2 X10*3/uL [facility] Eosinophils Absolute Auto 0.2 0.0 - 0.4 X10*3/uL [facility] Basophils Absolute Auto 0.0 0.0 - 0.2 X10*3/uL [facility] NRBC Abs Auto 0.000 0.0 - 0.012 X10*3/uL [facility] Blood Venous blood specimen / Unknown 09/29/2024 12:14 PM EDT 09/29/2024 2:18 PM EDT us Tucker Omalley MD LAB BLOOD ORDERABLES Final Resul t [facility] [address] [place] [phone] * (ABNORMAL) Iron And Total Iron Binding Capacity (09/29/2024 12:14 PM EDT) Iron 30 30 - 160 mcg/dL [facility] Total Iron Binding Capacity 386 228 - 428 mcg/dL [facility] Percent Iron Saturation 8(L) 15 - 50 % [facility] Unsaturated Iron Binding 356 ug/dL [facility] Blood Venous blood specimen / Unknown 09/29/2024 12:14 PM EDT 09/29/2024 2:10 PM EDT us Tucker Omalley MD LAB BLOOD ORDERABLES Final Resul t Performing Organization Address [facility] [address]/ZIP Co de Phone Number [facility] [address] [place] [phone] * PTH, Intact Without Calcium (09/29/2024 12:14 PM EDT) Parathyroid Hormone, Intact 50.5 8.7 - 77.1 pg/mL [facility] Blood Venous blood specimen / Unknown 09/29/2024 12:14 PM EDT 09/29/2024 2:10 PM EDT us Tucker Omalley MD LAB BLOOD ORDERABLES Final Resul t Performing Organization Address City/[facility] [address]/ZIP Co de Phone Number [facility] [address] [place] [phone] * (ABNORMAL) Ferritin (09/29/2024 12:14 PM EDT) Ferritin 9(L) 10 - 250 ng/mL [facility] Blood Venous blood specimen / Unknown 09/29/2024 12:14 PM EDT 09/29/2024 2:10 PM EDT us Tucker Omalley MD LAB BLOOD ORDERABLES Final Resul t Performing Organization Address [facility] [address]/ZIP Co de Phone Number [facility] [address] [place] [phone] * (ABNORMAL) Comprehensive Metabolic Panel (09/29/2024 12:14 PM EDT) Sodium 138 135 - 145 mmol/L [facility] Potassium 4.0 3.3 - 5.1 mmol/L [facility] Chloride 106 96 - 108 mmol/L [facility] Carbon Dioxide 26 22 - 29 mmol/L [facility] Anion Gap 10(L) 12 - 20 [facility] Urea Nitrogen (BUN) 11 9 - 16 mg/dL [facility] Creatinine, Serum 0.63 0.5 - 1.4 mg/dL [facility] Estimated Glomerular Filt Rate >60 [facility] Comment:Chronic Kidney Disea se: Estimated GFR < 60 mL/min/[id number] Kidney Disease: Estimated GFR < 15 mL/min/1.73m2 Glucose 73 60 - 115 mg/dL [facility] Calcium 8.8 8.4 - 10.2 mg/dL [facility] Bilirubin, Total 0.8 0.0 - 1.0 mg/dL [facility] Aspartate Amino Transferase 20 5 - 31 U/L [facility] Alanine Aminotransferase 19 0 - 31 U/L [facility] Total Protein 6.8 6.5 - 8.0 g/dL [facility] Albumin Level 4.0 3.5 - 5.0 g/dL [facility] Alkaline Phosphatase 67 39 - 117 U/L [facility] Blood Venous blood specimen / Unknown 09/29/2024 12:14 PM EDT 09/29/2024 2:10 PM EDT us Tucker Omalley MD LAB BLOOD ORDERABLES Final Resul t [facility] [address] [place] [phone] * BI US Breast Limited Left (01/21/2024 1:10 PM EDT) Anatomical Region Laterality Modality Breast Left Ultrasound 01/21/2024 1:10 PM EDT Narrative 01/21/2024 3:26 PM EDT [facility] [address] [place], [place] [address] Ultrasound Report Signed Patient: Nelly Lanier MR#: [id number] [birth year] : 1985 Acct:[id number] Age/Sex: 38 / F ADM Date: 01/21/24 Loc: HO.MAMMO Attending Dr: Tucker Omalley MD Ordering Physician: Tucker Omalley MD Date of Service: 01/21/24 Procedure(s): US breast LT limited mamm only Accession Number(s): [id number] cc: Tucker Omalley MD EXAMINATION: MM DIAGNOSTIC DIGITAL BREAST TOMOSYNTHESIS, BILATERAL US BREAST LIMITED, LEFT MAMMOGRAPHY: CLINICAL INFORMATION: Baseline mammography. 38-year-old female complaining of small tender palpable abnormality in the left breast lower inner quadrant, posterior one third. No significant family history. No prior surgeries. COMPARISON: Mammography: None. Baseline exam. TECHNIQUE: Digital breast tomosynthesis is performed in both the craniocaudal and mediolateral oblique views along with computer-aided detection (CAD). Synthesized 2D images are generated from the tomosynthesis. In addition to standard views, added full-field bilateral 3-D cc views, and added full field bilateral 3-D MLO views were obtained, as well as 3-D spot compression left CC and MLO views of the focus of palpable concern. FINDINGS: The breasts are almost entirely fatty (ACR BI-RADS breast composition Category a). There are no suspicious masses, suspicious grouped calcifications, or areas of architectural distortion in either breast. The parenchymal pattern is stable from prior exams. There is no skin or axillary abnormality. No mammographic correlate to the focus of palpable concern, marked by a BB marker by the technologist with the aid of the patient, is identified. This will be interrogated by ultrasound. ULTRASOUND: CLINICAL INFORMATION: As above. COMPARISON: None TECHNIQUE: Targeted sonographic evaluation left breast was performed using a high frequency linear transducer. Left breast was interrogated in the lower inner quadrant to include the area of palpable concern. Selected archived documentation. FINDINGS: LEFT BREAST: There is fatty breast tissue present. There is no mass, cystic abnormality, abnormal shadowing, or architectural abnormality. There is no ultrasound correlate to the focus of palpable concern. US/US breast LT limited mamm only IMPRESSION: -There are no findings suspicious for malignancy in either breast. -There is no mammographic or sonographic correlate to the focus of palpable concern lower inner quadrant left breast. Recommend clinical management of follow-up. -Otherwise, recommend the patient resume routine annual screening in one year. OVERALL ASSESSMENT: Mammography: BI-RADS 1 - Negative Ultrasound: BI-RADS 1 - Negative RECOMMENDATION: 1. Patient should be managed based on the clinical impression. 2. Otherwise, routine annual screening mammography. This patient's information was entered into a reminder system with a target due date for their next mammogram. Electronically signed by: Jm Garcia MD 01/21/2024 03:23 PM EDT Dictated By: Jm Garcia MD Signed By: <Electronically signed by Jm Garcia MD in OV> 01/21/24 1523 DD/ 1310 TD/TT: 01/21/24 1415 [employer] Commerce Developer: Procedure Note Donotuseinterpreter, Image - [facility] [address] [place], [place] [address] Ultrasound Report Signed Patient: Dashawn Lanier#: [id number] 20 : 1985Acct:[id number] Age/Sex: 38 / FADM Date: 01/21/24 Loc: HO.MAMMO Attending Dr: Tucker Omalley MD Ordering Physician: Tucker Omalley MD Date of Service: 01/21/24 Procedure(s): US breast LT limited mamm only Accession Number(s): [id number] cc: Tucker Omalley MD EXAMINATION: MM DIAGNOSTIC DIGITAL BREAST TOMOSYNTHESIS, BILATERAL US BREAST LIMITED, LEFT MAMMOGRAPHY: CLINICAL INFORMATION: Baseline mammography. 38-year-old female complaining of small tender palpable abnormality in the left breast lower inner quadrant, posterior one third. No significant family history. No prior surgeries. COMPARISON: Mammography: None. Baseline exam. TECHNIQUE: Digital breast tomosynthesis is performed in both the craniocaudal and mediolateral oblique views along with computer-aided detection (CAD). Synthesized 2D images are generated from the tomosynthesis. In addition to standard views, added full-field bilateral 3-D cc views, and added full field bilateral 3-D MLO views were obtained, as well as 3-D spot compression left CC and MLO views of the focus of palpable concern. FINDINGS: The breasts are almost entirely fatty (ACR BI-RADS breast composition Category a). There are no suspicious masses, suspicious grouped calcifications, or areas of architectural distortion in either breast. The parenchymal pattern is stable from prior exams. There is no skin or axillary abnormality. No mammographic correlate to the focus of palpable concern, marked by a BB marker by the technologist with the aid of the patient, is identified. This will be interrogated by ultrasound. ULTRASOUND: CLINICAL INFORMATION: As above. COMPARISON: None TECHNIQUE: Targeted sonographic evaluation left breast was performed using a high frequency linear transducer. Left breast was interrogated in the lower inner quadrant to include the area of palpable concern. Selected archived documentation. FINDINGS: LEFT BREAST: There is fatty breast tissue present. There is no mass, cystic abnormality, abnormal shadowing, or architectural abnormality. There is no ultrasound correlate to the focus of palpable concern. US/US breast LT limited mamm only IMPRESSION: -There are no findings suspicious for malignancy in either breast. -There is no mammographic or sonographic correlate to the focus of palpable concern lower inner quadrant left breast. Recommend clinical management of follow-up. -Otherwise, recommend the patient resume routine annual screening in one year. OVERALL ASSESSMENT: Mammography: BI-RADS 1 - Negative Ultrasound: BI-RADS 1 - Negative RECOMMENDATION: 1. Patient should be managed based on the clinical impression. 2. Otherwise, routine annual screening mammography. This patient's information was entered into a reminder system with a target due date for their next mammogram. Electronically signed by: Jm Garcia MD 01/21/2024 03:23 PM EDT Dictated By: Jm Garcia MD Signed By: <Electronically signed by Jm Garcia MD in OV> 01/21/24 1523 DD/ 1310 TD/TT: 01/21/24 1415 Websphere Commerce Developer: us Tucker Omalley MD IMG US PROCEDURES Final Result * (ABNORMAL) Lipid Panel, Standard (12/16/2023 9:46 AM EDT) Triglycerides 92 <150 mg/dL [facility] Comment:Desirable Triglyceri de: less than 150 mg/dLBorderline High Triglyceride 150-199 mg/dLHigh Triglyceride: 200-499 mg/dLVery High Triglyceride: greater than or equal to 5OO mg/dL Cholesterol 175 <200 mg/dL [facility] Comment:Desirable Cholestero l: less than 200 mg/dLBorderline High Cholesterol: 200-239 mg/dLHigh Cholesterol: greater than 239 mg/dL LDL Cholesterol Calculated 101(H) <100 mg/dL [facility] Comment:Desirable LDL: less than 100 mg/dLNear Optimal/Above Optimal LDL: 110- 129 mg/dLBorderline High LDL: 130-159 mg/dLHigh LDL: 160-189 mg/dLVery High LDL: greater than or equal to 190 mg/dL HDL Cholesterol 56 >40 mg/dL [facility] Comment:Desirable HDL: great er than 40 mg/dL Note: This HDL assay may give artificially low results in patients with liver disease. Blood Venous blood specimen / Unknown 12/16/2023 9:46 AM EDT 12/16/2023 11:13 AM EDT us Tucker Name LAB BLOOD ORDERABLES Final Resul t [facility] [address] [place] [address] [phone] * HM PAP/HPV (11/25/2022 2:19 PM EDT) us Historical Provider HEALTH MAINTENANCE Final Result from Last 3 Months or Most Recently Relevant to Health Maintenance Insurance [employer] < 65 DENTAL [facility] Care Teams Button Clamper Relationship Specialty Start Date End Date Name, MD Tucker [address] [place] [address] PCP - General Family Medicine 08/13/15 Malik Quiles [address] [place] [address] Dental Mixer Blender 05/12/24
[2024-12-30 11:22] LABS: MANUAL DIFF FLAG NO
[2024-12-30 11:53] LABS: Hematocrit 38.3 % (37.0-47.0); Hemoglobin 12.1 g/dl (12.0-16.0); Imm Gran Abs Auto 0.03 X10*3/uL (0.00-0.03); Imm Gran Pct Auto 0.4 % (0.0-0.4); Lymphocytes Absolute Auto 1.1 X10*3/uL (1.2-4.9); Mean Corpuscular HGB Conc 31.6 g/dl (31.0-35.0); Mean Corpuscular Hemoglobin 24.4 pg (27.0-33.0); Mean Corpuscular Volume 77.2 fL (80.0-98.0); NRBC Abs Auto 0.000 X10*3/uL (0.0-0.012); NRBC Pct Auto 0.0 /100WBC (0.0-0.2); Platelet Count 176 X10*3/uL (160-400); Red Blood Count 4.96 X10*6/uL (4.20-5.50); White Blood Count 6.9 X10*3/uL (4.8-10.8)
[2024-12-30 12:41] LABS: Ferritin 12 ng/mL (10-250)
== END 2024-12-30 08:48 | disposition home or self-care (01) ==
LOC: HO.HHCL 08:47
PROVIDERS: PCP Internal Medicine Geriatric Medicine; Visit Provider Internal Medicine Geriatric Medicine
DX: D64.9 Anemia, unspecified (principal)
CPT/HCPCS: 36415; 82728; 85025

== ENCOUNTER → 2025-01-28 07:45 | Outpatient (BNV) | payer OTHER, SELFPAY | PROVIDERS: PCP Internal Medicine Geriatric Medicine; Visit Provider Internal Medicine | DX: Z12.31 Encounter for screening mammogram for malignant neoplasm of breast (principal) | CPT/HCPCS: 77063; 77067 ==

== ENCOUNTER 2025-01-28 07:47 | Outpatient (REF) | payer OTHER, SELFPAY ==
--- NOTE | ~2025-01-28 | MM_ITS ---
EXAMINATION: MM SCREENING DIGITAL BREAST TOMOSYNTHESIS, BILATERAL CLINICAL INFORMATION: Screening. Asymptomatic. COMPARISON: Mammography: Comparison is made with available priors TECHNIQUE: Digital breast mammography with tomosynthesis is performed in both the craniocaudal and mediolateral oblique views along with computer-aided detection (CAD). FINDINGS: There are scattered areas of fibroglandular density. Right: Focal asymmetry lower central to slightly inner breast middle depth. No suspicious calcifications or other abnormal finding. Right: There are no significant masses, abnormal calcifications, or other abnormalities. MM/MM tomosynthesis screening BI IMPRESSION: Additional imaging is recommended ASSESSMENT: BI-RADS Category 0: Incomplete - Need additional Imaging Evaluation RECOMMENDATION: 1. Additional views of the right breast. 2. Targeted ultrasound if warranted after review of the additional views. 3. Radiology department staff will contact the patient for additional imaging. Additional Imaging required Electronically signed by: Kim Perez DO 01/30/2025 03:39 PM [facility]
--- OUTSIDE RECORDS SUMMARY | 2025-01-28 07:50 | XMS_ITS | Encounter Summary ---
Author Organization [email or web address] Address [address] [facility] [address] [facility] 7t [place] [address] Care Team Providers Care Gin Clerk Name Role Phone Name, Tucker PEARSON Primary Care Provider [phone] Malik Quiles Unavailable Unavailable Reason for Visit * Reason Comments Med Change Request Encounter Details Date Type Department Care Team ([facility] Contact Info) Description 03/25/2024 Refill [facility] [address] [place], [place] [phone] Name, MD Tucker [address] [place] [address] Social History Tobacco Use Types Packs/Day Years [...] documented as of this encounter Care Teams Gin Clerk Relationship Specialty Start Date End Date Name, MD Tucker [address] [place] [address] PCP - General Family Medicine 08/13/15 Malik Quiles [address] [place] [address] Dental Design Center Consultant 05/12/24 documented as of this encounter
--- OUTSIDE RECORDS SUMMARY | 2025-01-28 07:50 | XMS_ITS | Continuity of Care Document ---
Author Name instED, Medical Address [address] [place] [id number] Organization Unknown Address [address] [place] [address] Medications No known medications Problems No known problems
--- OUTSIDE RECORDS SUMMARY | 2025-01-28 07:50 | XMS_ITS | Encounter Summary ---
Author Organization [facility] Address [address] [place] [address] Encounters * CPT with Medical instED at [place] on 2024-12-11 { reasonForRequest : Patient has a cough, and congestion, wants checked out. ,& quot;patientReports : Cough, fever greater than 2 days ; History of asthma, increased useof inhaler; Sputum increase ; Cough; Shortness of breath with exertion , denies :["Increased work of breathing/labored with or without fever , Unable to speak in full sentences without distress , Discoloration of skin -cyanosis , Needs to sleep sitting up, can t catch breath , Shortness of breath in setting of confusion , Lower extremity swelling , COPD , COVID Exposure , Pain with inspirati on ], chiefComplaints : Common Cold , pmh : COPD/Asthma, Rheumatoid Arthritis, Fibromyalgia, Asthma, Chronic Pain, Osteoarthritis , allergies :"No Known Drug Allergies , otherAllergies : , painAssessment : , visitOutcome : , additionalComments : 39 y.o female complains of Common Cold\n\nSelf-reporting symptoms:\nCough, congestion, sneezing, mild shortness of breath - starting on Thursday - much worse this morning \nReports dyspnea on exertion - history of asthma - used inhalers with minimal effect\nDenies fever, orthopnea \nCongested cough - sputum with no color \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 I discussed the warningsigns of when to seek emergency care. } [facility] responds to the listed address for a 39 yof w/ a c/c of URI symptoms. Upon arrival on scene, pt answers the door and invites [facility] inside. She is not in acute distress, nostridor or sonorous respirations are present and she is fully ambulatory. When she sits on the sofafor evaluation, she is mildly sob, but she is not tripoding and she is not using accessory muscles to breathe. No ashen or painter color are present, no facial droop or one-sided weakness are observed, and she is not bleeding anywhere. Pt tells COURTNEY she has been experiencing common cold s/s since . Today, she is getting ready to leave for an emergency trip to [place] and wants to make sure she does not have COVID or flu. She describes her symptoms as increased coughing w/ clear sputum production, wheezes, increased use of inhaler and nebulizer treatments, and some general feelings of malaise. She denies cp, n/v/d, cano, fevers, or chills. She has not used her nebulizer yet today as she has been busy packing for her trip. She is very animated while talking and moving her body and extremities in a smooth and coordinated manner. 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 Ddx: COVID/flu, URI, asthma exacerbation [facility] obtains vital signs and pt is swabbed for COVID/flu. Pt is normotensive and has a very low-grade fever of 99.2. COVID/flu test is negative for both. Lung sounds are diffuse insp/exp wheezes w/ air movement in all munoz. Head is atraumatic and normocephalic. Sclera are clear and extraocular movements are intact. Neck is supple and trachea is midline. Conjunctiva are pink and moist as well as oral mucosa. Chest rises and falls equally w/ respirations. Abdomen is soft and nontender in all four quadrants. No peripheral edema is noted and CMS is intact in all four extremities. [facility] contacts [facility] and discusses the above and [facility] agrees w/ [facility] to administer one duoneb. [facility] administers one duonebvia nebulizer pipe at 8lpm O2. Pt continues to be animated and talkative w/ the pipe in her mouth and [facility] needs to consistently redirect pt to concentrate on the treatment. Lung sounds are reassessedpost treatment and they are clear to auscultation throughout. Pt endorses feeling better w/ decreased respiratory effort and thanks [facility] for the visit. [facility] encourages pt to continue her supportive care for her symptoms as best she can while traveling. [facility] is clear. Report completed by JAQUELINE Watters [id number]. IV_(FLUIDS_AND/OR_MEDICATION), MEDICATION_IM, POC_BLOODWORK Written by Medical instED on 2024-12-11
--- OUTSIDE RECORDS SUMMARY | 2025-01-28 07:50 | XMS_ITS | Clinical Summary ---
Author Organization [employer] Address [address] [facility] 7t [place] [address] Care Team Providers Care Plastic Manager Name Role Phone Name, Tucker PEARSON Primary Care Provider [phone] Malik Quiles Unavailable Unavailable Allergies Active Allergy [...] NEEDED 8.5 g 11 09/30/19 25 Active Nebulizers misc 1 kit Every 4-6 hours as needed (for shortness of breath and wheezing). Active betamethasone valerate (Valisone) 0.1 % cream APPLY BY TOPICAL ROUTE A THIN LAYER TO THE AFFECTED AREA(S) 180 g 3 12/20/19 25 Active fluticasone (Flonase) 50 MCG/ACT nasal sprayIndicatio ns:Cough in adult ADMINISTER 1 SPRAY INTO EACH NOSTRIL ONCE PER DAY. SHAKE GENTLY. BEFORE FIRST USE, PRIME PUMP. AFTER USE, CLEAN TIP AND REPLACE CAP. 32 mL 1 01/17/20 25 025 Active Tirzepatide-We ight Management (Zepbound) 12.5 MG/0.5ML solution auto-injector Inject 0.5 mL (12.5 mg) under the skin 1 (one) time per week. 2 mL 3 01/20/20 25 Active fluticasone (Flonase) 50 MCG/ACT nasal sprayIndicatio ns:Cough in adult Administer 1 spray into each nostril Once per day. Shake gently. Before first use, prime pump. After use, clean tip and replace cap. 16 g 2 10/22/19 25 025 Discontinued Zepbound 10 MG/0.5ML solution auto-injector INJECT 0.5 ML (10 MG) UNDER THE SKIN 1 (ONE) TIME PER WEEK. 2 mL 2 11/29/19 25 025 Discontinued(Do se adjustment) Active Problems Problem Noted Date Diagnosed Date [...] Encounters Date Type Department Care Team Description 01/19/2025 Telephone [facility] MEDICINE [address] [place] [phone] Tucker Omalley MD Medication Question 01/14/2025 Refill [facility] WALK[facility]IN CENTER [address] [place] [phone] Kriss Bhatti NP Cough in adult 12/28/2024 10:30 AM EDT Office Visit [facility] MEDICINE [address] [place] [phone] NameTucker MD Severe obesity (BMI >= 40) (CMS/[facility]) ([facility]) (Primary Dx); Rash; Seborrheic keratosis; Anemia, unspecified type 12/28/2024 Travel 12/27/2024 Telephone [facility] W[facility]ENTER [address] [place] [phone] Tra Momin [place] chart prep 12/21/2024 Travel 12/17/2024 Refill [facility] MEDICINE [address] [place] [address] Tucker Omalley MD 11/26/2024 Refill [facility] MEDICINE [address] [place] [phone] Tucker Omalley MD 11/10/2024 Telephone [facility] MEDICINE [address] [place] [phone] Name, MD Tucker Durable Medical Equipment from Last 3 Months Immunizations Immunization Administration Dates Next Due Hep B, adult 05/10/2019,08/17/2018 Influenza Injectable Quadriv alant Preservative Free IIV4 MDCK 12/19/2022,05/02/2022,02/25/2021 Influenza injectable quadriv alent IIV4 with preservative 12/23/2017 Influenza injectable quadriv alent preservative free 03/17/2019 Influenza, IIV3, injectable 11/30/2014,1 05/02/2013,01/24/2013,02/10,01/05/2010,02/27/2009 Influenza, seasonal, injecta ble, preservative free 12/11/2023,01/18/2016 Novel [id number], preservative-free 02/27/2009 Pfizer Covid-19 Vaccine 12+ 01/28/2024 [...] not to disclose 2021 10:15 AM EDT Last Filed Vital Signs Vital Sign Reading [...] Screening 01/27/2025 01/28/2024 Dental X-Ray: Bitewings 04/22/2025 04/21/19 25, 03/24/2024, 12/14/2018, Additional history exists Disability Screening [...] Procedure Name Priority Date/Time Associated Diagnosis Comments FERRITIN Routine 12/30/2024 9:12 AM EDT Anemia, unspecified type CBC WITH AUTO DIFFERENTIAL Routine 12/30/2024 9:12 AM EDT Anemia, unspecified type PROPHYLAXIS - ADULT Routine 04/21/2024 1 :00 [...] Recently Relevant to Health Maintenance Results * (ABNORMAL) CBC auto differential (12/30/2024 9:12 AM EDT) White Blood Count 6.9 4.8 - 10.8 X10*3/uL [facility] Red Blood Count 4.96 4.20 - 5.50 X10*6/uL [facility] Hemoglobin 12.1 12.0 - 16.0 g/dl [facility] Hematocrit 38.3 37.0 - 47.0 % [facility] Mean Corpuscular Volume 77.2(L) 80.0 - 98.0 fL [facility] Mean Corpuscular Hemoglobin 24.4(L) 27.0 - 33.0 pg [facility] Mean Corpuscular HGB Conc 31.6 31.0 - 35.0 g/dl [facility] Red Cell Distribution Width 17.2(H) 11.0 - 16.0 % [facility] Platelet Count 176 160 - 400 X10*3/uL [facility] Neutrophils Percent Auto 73.1(H) 45 - 73 % [facility] Imm Gran Pct Auto 0.4 0.0 - 0.4 % [facility] Lymphocytes Percent Auto 16.2(L) 20 - 40 % [facility] Monocytes Percent Auto 6.8 2 - 11 % [facility] Eosinophils Percent Auto 3.2 0 - 4 % [facility] Basophils Percent Auto 0.3 0 - 2 % [facility] NRBC Pct Auto 0.0 0.0 - 0.2 /100WBC [facility] Neutrophils Absolute Auto 5.0 2.0 - 8.3 x10*3/uL [facility] Imm Gran Abs Auto 0.03 0.00 - 0.03 X10*3/uL [facility] Lymphocytes Absolute Auto 1.1(L) 1.2 - 4.9 X10*3/uL [facility] Monocytes Absolute Auto 0.5 0.1 - 1.2 X10*3/uL [facility] Eosinophils Absolute Auto 0.2 0.0 - 0.4 X10*3/uL [facility] Basophils Absolute Auto 0.0 0.0 - 0.2 X10*3/uL [facility] NRBC Abs Auto 0.000 0.0 - 0.012 X10*3/uL [facility] Blood Venous blood specimen / Unknown 12/30/2024 9:12 AM EDT 12/30/2024 11:16 AM EDT us Tucker Omalley MD LAB BLOOD ORDERABLES Final Resul t Performing Organization Address City/[facility]/ZIP Co de Phone Number [facility] [address] [place] [phone] * Ferritin (12/30/2024 9:12 AM EDT) Ferritin 12 10 - 250 ng/mL [facility] Blood Venous blood specimen / Unknown 12/30/2024 9:12 AM EDT 12/30/2024 11:32 AM EDT us Tucker Omalley MD LAB BLOOD ORDERABLES Final Resul t [facility] [address] [place] [address] [phone] * BI US Breast Limited Left (01/21/2024 1:10 PM EDT) Anatomical Region Laterality Modality Breast Left Ultrasound 01/21/2024 1:10 PM EDT Narrative 01/21/2024 3:26 PM EDT [facility] [address] [place] [address] Ultrasound Report Signed Patient: Nelly Lanier MR#: [id number] [birth year] : 1985 Acct:[id number] Age/Sex: 38 / F ADM Date: 01/21/24 Loc: HO.MAMMO Attending Dr: Tucker Omalley MD Ordering Physician: Tucker Omalley MD Date of Service: 01/21/24 Procedure(s): US breast LT limited mamm only Accession Number(s): [id number] cc: Tucker Omalley MD EXAMINATION: MM DIAGNOSTIC [...] 01/21/24 1523 DD/ 1310 TD/TT: 01/21/24 1415 Cyberathlete: Procedure Note Donotuseinterpreter, Image - 01/21/2024 [facility] [address] [place] [address] Ultrasound Report Signed Patient: Dashawn Lanier#: [id number] [birth year] : 1985Acct:[id number] Age/Sex: 38 / FADM Date: 01/21/24 Loc: HO.MAMMO Attending Dr: Tucker Omalley MD Ordering Physician: Tucker Omalley MD Date of Service: 01/21/24 Procedure(s): US breast LT limited mamm only Accession Number(s): [id number] cc: Tucker Omalley MD EXAMINATION: MM DIAGNOSTIC [...] 01/21/24 1523 DD/ 1310 TD/TT: 01/21/24 1415 Cyberathlete: Tucker Name IMG US PROCEDURES Final Result * (ABNORMAL) Lipid Panel, Standard (12/16/2023 9:46 AM EDT) Triglycerides 92 <150 mg/dL [facility] Comment:Desirable Triglyceri de: less than 150 mg/dLBorderline High Triglyceride 150-199 mg/dLHigh Triglyceride: 200-499 mg/dLVery High Triglyceride: greater than or equal to 5OO mg/dL Cholesterol 175 <200 mg/dL [facility] Comment:Desirable Cholestero l: less than 200 mg/dLBorderline High Cholesterol: 200-239 mg/dLHigh Cholesterol: greater than 239 mg/dL LDL Cholesterol Calculated 101(H) <100 mg/dL [facility] Comment:Desirable LDL: less than 100 mg/dLNear Optimal/Above Optimal LDL: 110- 129 mg/dLBorderline High LDL: 130-159 mg/dLHigh LDL: 160-189 mg/dLVery High LDL: greater than or equal to 190 mg/dL HDL Cholesterol 56 >40 mg/dL [facility] Comment:Desirable HDL: great er than 40 mg/dL Note: This HDL assay may give artificially low results in patients with liver disease. Blood Venous blood specimen / Unknown 12/16/2023 9:46 AM EDT 12/16/2023 11:13 AM EDT Tucker Omalley MD LAB BLOOD ORDERABLES Final Resul t [facility] [address] [place] [phone] [phone] * HM PAP/HPV (11/25/2022 2:19 PM EDT) Historical Provider HEALTH MAINTENANCE Final Result from Last 3 Months or Most Recently Relevant to Health Maintenance Insurance [facility] < 65 DENTAL [facility] Care Teams Plastic Manager Relationship Specialty Start Date End Date Name, MD Tucker [address] [place] [address] PCP - General Family Medicine 08/13/15 Malik Quiles [address] [place] [address] Dental Enrichment Assistant 05/12/24
--- OUTSIDE RECORDS SUMMARY | 2025-01-28 07:50 | XMS_ITS | Encounter Summary ---
Author Organization [employer] Address [address] [place] [address] Care Team Providers Care Sql Bi Developer Name Role Phone Name, Tucker PEARSON Primary Care Provider [phone] Malik Quiles Unavailable Unavailable Encounter Details Date [...] on filedocumented in this encounter Care Teams Sql Bi Developer Relationship Specialty Start Date End Date Name, MD Tucker [address] [place] [address] PCP - General Family Medicine 08/13/15 Malik Quiles [address] [place] [address] Dental Pot Liner 05/12/24 documented as of this encounter
--- OUTSIDE RECORDS SUMMARY | 2025-01-28 07:50 | XMS_ITS | Continuity of Care Document ---
Author Name instED, Medical Address [address] [place] [address] Organization Unknown Address [address] [place] [address] Medications No known medications Problems No known problems
--- OUTSIDE RECORDS SUMMARY | 2025-01-28 07:50 | XMS_ITS | Encounter Summary ---
Author Organization [employer] Address [address] [facility] [address] [facility] [address] [facility] [address] [place] [address] Care Team Providers Care Reading Assistant Name Role Phone Name, Tucker PEARSON Primary Care Provider [phone] Malik Quiles Unavailable Unavailable Reason for Visit * Reason Comments Med Refill Encounter Details Date Type Department Care Team ([facility] st Contact Info) Description 07/08/2022 Refill [facility] [address] [place], [place] [phone] Name, MD Tucker [address] [place], [place] [phone] Social History Tobacco Use Types Packs/Day Years Used Date Smoking Tobacco: Never Passive Smoke Exposure: Never Smokeless Tobacco: Never Comments Unknown Sex and Gender Information Value Date Recorded Sex Assigned at Female 01/20/2022 10:15 AM EDT Legal Sex Female 10:15 AM EDT Gender Identity Female 01/20/2022 10:15 AM EDT Sexual Orientation Choose not to disclose 2021 10:15 AM EDT COVID-19 Exposure Response Date Recorded In the last 10 days, have yo u been in contact with someone who was confirmed or suspected to have Coronavirus/COVID-19? No / Unsure 07/04/2022 12:46 PM EDT documented as of this encounter Plan of Treatment Not on file documented as of this encounter Visit Diagnoses Not on filedocumented in this encounter Care Teams Reading Assistant Relationship Specialty Start Date End Date Name, MD Tucker [address] [place] [phone] PCP - General Family Medicine 08/13/15 Malik Quiles [address] [place] [address] Dental Journalism Internship 05/12/24 documented as of this encounter
--- OUTSIDE RECORDS SUMMARY | 2025-01-28 07:50 | XMS_ITS | Encounter Summary ---
Author Organization [employer] Address [address] [place] [address] 7t [place] [address] Care Team Providers Care Law Office Receptionist Name Role Phone Name, Tucker PEARSON Primary Care Provider [phone] Malik Quiles Unavailable Unavailable Encounter Details Date Type Department Care Team (Late st Contact Info) Description 10/13/2022 Orders Only [facility] MED[facility] [address] [place] [address] Geovanna Bradshaw LPN Social History Tobacco Use [...] on filedocumented in this encounter Care Teams Law Office Receptionist Relationship Specialty Start Date End Date Name, MD Tucker [address] [place] [address] PCP - General Family Medicine 08/13/15 Malik Quiles [address] [place] [address] Dental Face Painter 05/12/24 documented as of this encounter
--- OUTSIDE RECORDS SUMMARY | 2025-01-28 07:50 | XMS_ITS | Data Portability ---
Author Organization [employer], [facility] Address [address] [place] [address] Care Team Providers Care Principal Programmer Name Role Phone HIM CCA OTHER Unavailable Primary Care Provider Assessment Encounter Date Assessment Date Assessment LastModified by Organization Details LastModified Time 02/03/2024 02/03/2024 I provided real -time medical direction via phone for this encounter and was available for additional phone-based assistance as needed. I have reviewed and agree with the Assessment and Plan as documented by the Air Battle Manager. Patient given the opportunity to ask questions. Our service contacted for an assessment of: Chronic right back pain As per above, patient with hx of chronic right-sided back pain. No new or worsening red S&S. No new bowel/bladder symptoms. No new gait abnl. No new neurological signs, symptoms or deficits. Per apigee developer on the scene, VSS, non-toxic. Neuro grossly [...] We discussed the need to seek care urgently/emergen tly in the setting of any new or worsening serious symptoms Not available 02/03/2024 10:56:26 12/11/2024 12/11/2024 I provided real -time medical direction via phone for this encounter and was available for additional phone-based assistance as needed. I have reviewed and agree with the Assessment and Plan as documented by the Air Battle Manager. Patient given the opportunity to ask questions. Our service contacted for an assessment of: Viral URI symptoms As per above, patient with approximately several days of viral URI symptoms. Denies fever or chills. Denies chest pain, shortness of breath, dyspnea on exertion. Positive nasal congestion and dry cough. Per apigee developer on the scene, vital signs are stable and patient is afebrile. + wheezing heard on exam. COVID and Flu are both negative. No increased work of breathing and no distress. Impression: Common cold and viral URI Plan: Continue with ibqi-ycv-umxbdoc medications to control symptoms. Duoneb times one given. Red flags discussed as to when to seek a higher level care. Allergies: Reviewed PCP f/u: We discussed the diagnostic uncertainty of home visits and the risk associated with this. In this case, the patient and I felt this to be an acceptable and reasonable amount of risk given the benefit of avoiding an ED visit. We discussed the need to seek care urgently/emergen tly in the setting of any new or worsening serious symptoms, particularly fever chills Not available 12/11/2024 11:30:07 Plan of Treatment Reminders Order Date Submit Date Provider Last Modified By Organization Details Last Modified Time Details Appointments None recorded. Lab rapid SARS CoV 2 Ag, QL IA, respiratory specimen [address] [facility], [address] [place] [address], [id number] 16:05:15 rapid flu (A+B) [address] [facility], [address] [place] [address], [id number] 16:05:33 BMP, serum or plasma [address] [facility], [address] [place] [address], [id number] 21:48:55 rapid SARS CoV 2 Ag, QL IA, respiratory specimen [address] [facility], [address] [place] [address], [id number] 21:48:56 rapid flu (A+B) 2024 025 [facility], [address] [place] [address], [id number] 5 21:48:56 rapid SARS CoV 2 Ag, QL IA, respiratory specimen 2023 024 [facility], [address] [place] [address], [id number] 4 01:47:53 rapid flu (A+B) 2023 024 [facility], [address] [place] [address], [address] 4 01:47:37 urinalysis, dipstick 2023 024 [facility], [address] [place] [address], [id number] 4 19:05:01 Referral None recorded. Procedures None recorded. Surgeries None recorded. Imaging None recorded. Medication Orders ipratropium 0.5 mg-albutero l 3 mg (2.5 mg base)/3 mL nebulizatio n soln 2024 025 [email or web address] [address] [place], [address], 5 11:32:04 lactated Ringers intravenous solution [address] [facility]/Pharmacy #2071, [address] [place], [address], 5 19:55:57 ketorolac 15 mg/mL injection solution [address] [facility]armacy #2071, [address] [place], [address], 5 19:55:57 metoclopram sarah 5 mg/mL injection solution [address] [facility]acy #2071, [address] [place], [address], 5 19:55:57 benzonatate 100 mg capsule 2023 024 [facility] [address] [place], [address], 4 11:40:51 ketorolac 30 mg/mL injection solution 2023 [facility]24 [facility] [address] [place], [address], 4 13:04:11 prednisone 20 mg tablet 2023 024 [facility]/Pharmacy #2071, [address] [place], [address], 4 13:04:11 prednisone 20 mg tablet 2023 024 [facility] [address] [place], [address], 4 14:36:30 ketorolac 30 mg/mL (1 mL) injection solution [address]23 [email or web address] [address] [address] [place], [address], 4 10:36:09 Patient TargetsNo targets recorded. Patient InstructionsNo instructions recorded. Reason for Referral None Reported. Results Created Date Observation Date Name Description Value Unit Range Abnormal Flag Note LastModifiedBy Organization Detail LastModifiedTime Result Notes None recorded. Medical Equipment None [...] Available No t Available Vitals Date Recorded Body temperature Body height Heart rate Oxygen saturation Oxygen saturation in Arterial blood by Pulse oximetry Body weight Respiratory rate Systolic And Diastolic Provider Name and Address Organization Details Last Updated DateTime 5 97.8 [degF] 165.1 cm 74 /min 98 % 98 % 383545. 88 g 16 /min 126/88 mm[Hg] Not Available [facility] [employer] 5 19:23:32 Date Recorded Body temperature Heart rate Oxygen saturation Oxygen saturation in Arterial blood by Pulse oximetry Body weight Body height Respiratory rate Systolic And Diastolic Provider Name and Address Organization Details Last Updated DateTime 5 99.2 [degF] 88 /min 99 % 99 % 191703. 696 g 162.56 cm 18 /min 124/74 mm[Hg] Not Available [employer] 5 11:21:08 Date Recorded Oxygen saturation Oxygen saturation in Arterial blood by Pulse oximetry Respiratory rate Body temperature Body weight Heart rate Body height Systolic And Diastolic Provider Name and Address Organization Details Last Updated DateTime 4 98 % 98 % 14 /min 97.6 [degF] 511386. 6 g 92 /min 152.4 cm 145/80 mm[Hg] Not Available [employer] 4 10:04:03 Date Recorded Body temperature Respiratory rate Oxygen saturation Oxygen saturation in Arterial blood by Pulse oximetry Body height Heart rate Body weight Systolic And Diastolic Provider Name and Address Organization Details Last Updated DateTime 4 98 [degF] 14 /min 98 % 98 % 157.48 cm 71 /min 090372. 6 g 128/86 mm[Hg] Not Available [employer] 4 12:46:24 Date Recorded Oxygen saturation Oxygen saturation in Arterial blood by Pulse oximetry Respiratory rate Body height Heart rate Body temperature Body weight Systolic And Diastolic Provider Name and Address Organization Details Last Updated DateTime 4 99 % 99 % 16 /min 162.56 cm 82 /min 97.6 [degF] 831425. 128 g 107/76 mm[Hg] Not Available [employer] 4 11:26:02 Social History None recorded. Functional Status None recorded. Mental Status None recorded. Family History Nothing Reported. Medical History No medical history recorded. Gynecological HistoryNo gynecological history recorded. Obstetrics History GPAL:G 0 P 0 0 0 0 Past Encounters Encounter ID Performer Location Encounter Start Date Encounter Closed Date Diagnosis/Indication Diagnosis SNOMED-CT Code Diagnosis ICD10 Code Diagnosis IMO Codes Diagnosis Note [id number] Carl Pierson MD [facility] [address] [place] [phone] 01/23/2023 15:48:21 01/27/2023 09:42:22 Sciatica 26359788 M54.31 Patient reports acute-on-c hronic pain from sciatica. No new features of the pain. No history or exam findings to suggest cord compromise or secondary back pain. Plan for pain control and continued outpatient treatment. [id number] Humaira Marquez MD [facility] - [facility] [address] [place] [phone] 03/28/2023 19:02:25 03/29/2023 15:28:00 Exacerbation of intermittent asthma [id number] J45.21 I provided real -time medical direction via phone for this encounter, and was available for additional phone based assistance as needed. I have reviewed and agree with the Assessment and Plan as documented by the Air Battle Manager. Patient given the opportunit y to ask questions. 37 yo w/ asthma. treated for exacerbati on with azithro around the , completed course. Sx recrudesce d 1-2d ago. not expectorat ing sputum, hadn't been taking nebs or controller inhalers. Discussed appropriat e use of inhalers and nebulizers . Will prescribe 5d course prednisone and fexofenadi ne for antihistam ine. [id number] EPIFANIO CUTLER MD [facility] - [facility] [address] [place] [phone] 09/26/2023 18:34:39 09/28/2023 14:31:54 Acute COVID-19 [id number] U07.1 Evaluation in the field was performed by my apigee developer colleague, as noted above, I provided real-time direction and supervisio n for this visit. The evaluation revealed 38 year old female with hx of asthma with complains of cough, myalgia , fatigue. Pt reports that she had a dry cough for 3 days, and felt fatigued w/ body aches. She reported feeling feverish the day before as well as having a CANO. She denied dizziness, ear nose or throat [...] to tolerate PO or any other concerns. [id number] Breanna Calix MD [facility] [address] [place] [phone] 09/30/2023 17:41:35 09/30/2023 19:48:09 Right side sciatica [id number] 11087 M54.31 [id number] Breanna Calix MD [facility] [address] [place] [phone] 02/03/2024 10:03:59 02/03/2024 14:20:43 Chronic low back pain 673313931 M54.50 [id number] Jocelyne Bonner MD [facility] [address] [place] [phone] 02/04/2024 12:46:20 02/04/2024 17:20:33 Chronic low back pain 441829953 M54.50 As noted, we were called to see this patient regarding concerns of back pain. Evaluation in the field was performed by my apigee developer colleague, as noted above, I provided real-time [...] changes to consciousn ess, chest pain, dyspnea. [id number] Jamil Arboleda MD [facility] [address] [place] [phone] 03/06/2024 11:26:00 03/07/2024 11:52:24 Viral upper respiratory tract infection [id number] J06.9 Patient with symptoms of URI; coughing, runny nose, hx of asthma though no current wheezing. COVID/flu negative. No red flag signs on exam. No fever. Satting well on RA. Continue supportive care. Will rx Tessalong pearles. Discussed red flag signs and symptoms to present for higher level of care. [id number] EPIFANIO CUTLER MD [facility] ED Medical [facility] [address] [place] [address] 12/01/2024 19:23:27 12/01/2024 22:28:06 Headache 73763376 R51.9 [id number] Evaluation in the field was performed by my apigee developer colleague, as noted above, I provided real-time direction and supervisio n for this visit. The evaluation revealed 39-year-ol d female with past medical history of COPD/asthm a, rheumatoid arthritis, fibromyalg ia, chronic pain, morbid obesity s/p gastric bypass, and currently on Zepbound (since March) presenting with 3 days of systemic symptoms and 4 days of left foot pain. History of Present IllnessSys temic symptoms:O nset 3 days ago.Dizzin ess, headache, mild shortness of breath.Had sharp chest pain yesterday, now resolved.H usband with similar symptoms.A ssociated diarrhea.C old-like symptoms: frontal headache with pressure over eyes, dizziness, photophobi a, nasal congestion , chills.Den ies fever, nausea, vomiting. Foot pain:Onset 4 days ago, left dorsum near dorsalis pedis.Yelena re pain (8/10), difficulty bearing weight.Den ies trauma or repetitive motion. Pain improves with heat.Histo ry of minor fracture (2012) in same foot.Denie s hx of kidney disease, GI bleed. Not on anticoagul ation. VS: BP 126/ 88, HR 74, RR 16, Spo2 98%, Room Air at Rest, Temp 97.8 FGeneral: AAO, NADLungs: CTABExtrem ities: No LE swelling, no calf/leg size discrepanc y, negative Saskia s sign bilaterall yLeft foot: minimal swelling, ~quarter-s ized area of marked tenderness over the mid-dorsal foot near the tarsometat arsal region, no erythema, pulses normalNeur ovascular exam intactBMP: 139, K 3.6, Cl 104, Co2 23, BUN 14, Creat 0.7, Glu 109Covid and Flu : NegativeAl lergies reviewed Impression :Viral syndrome / gastroente ritis vs viral URI dizziness, headache, congestion , diarrhea, photophobi a, chills; with similar symptoms; afebrile, COVID/flu negative.A cute left foot pain, mid-dorsal region localized swelling/t enderness, no trauma, pulses intact, no erythema. Differenti al includes stress fracture, RA flare/tend initis, or soft tissue inflammati on. No signs of cellulitis or DVT. Plan:LR 1 L IV bolusKetor olac 15 mg IV x1 (given)May use Acetaminop hen 1 g q8h PRN for pain/fever Reglan 10 mg IV for headache/n ausea administer edFoot pain: Rest, ice, elevation, supportive footwear.L eft foot X-ray to evaluate for fracture/s tress fracture if ongoing pain. Advised to go to UC or ask PCP for referralPC P follow-up within 1 week for medication and symptom reassessme nt.Red Flags discussed with the patient : chest pain or shortness of breath returns or worsens, severe dizziness, fainting, or new confusion, high fever, shaking chills, or persistent vomiting, black/farhat y stools, vomiting blood, or abdominal pain, foot becomes red, hot, very swollen, or unable to bear weight Primary care, consider__ _ Dispositio n: We [...] new or worsening serious symptoms, particular ly chest pain or shortness of breath returns or worsens, severe dizziness, fainting, or new confusion, high fever, shaking chills, or persistent vomiting, black/farhat y stools, vomiting blood, or abdominal pain, foot becomes red, hot, very swollen, or unable to bear weight [id number] Beranna Calix MD [facility] ED Medical [address] [phone] 12/11/2024 11:21:01 12/12/2024 23:56:51 Viral upper respiratory tract infection [id number] J06.9 [id number] Common cold 10110788 J00 49926 Health Concerns Section Related Observation LastModified by Organization Detai ls LastModified Time None Recorded Concern Status LastModified by Organization Details LastModified Time None Recorded Advance Directives Directive None Recorded Payers Insurance Date Sequence Insurance Name Policy Number Policy Naranjo Covered Member ID Naranjo Member ID Guarantor Name 12/11/2024 1 [facility] - DOS ON OR AFTER 2022 - DUAL ELIGIBLE - SKILLED NURSING OPTIONS AND ONE CARE (MEDICARE REPLACEMENT/ADV ANTAGE - HMO) Nelly Lanier [id number] Nelly Lanier Notes Date Note Type Note Provider Name and Address Organization Details Recorded Time 02/03/2024 text/html CRC Nurse Triage Notes (Angella Mason): Chief Complaints: Joint pain/swelling PMH: COPD/Asthma, Rheumatoid Arthritis, Fibromyalgia Pain Assessment: Level 10 out of 10 Comments: Wood Bucker verified the member's name//address and phone number. [...] s/s and seek emergency treatment if needed Air Battle Manager Organization Information for Braydon Walker Business Legal Name: [facility] Address: [address] [place] [address], [place] [address], Tomb Maker Helper: Norman Villalta MD CLIA No.: [id number] [employer] POC Test Results from Braydon Walker Urine Dipstick (09:18:23) Urine leukocytes: - JUVENTINO Urine nitrites: - NIT Urine urobilinogen: 0.2 URO Urine protein: - PRO Urine pH: 5.0 pH Urine blood: - BLO Urine specific gravity: 1.010 SG Urine ketones: - KET Urine bilirubin: - AILYN Urine glucose: - GLU .................... .................... .................... .................... .................... .................... .................... . Air Battle Manager Note From Braydon Walker: Patient alert and [...] to provide urine sample. Urine dip negative. [facility] orders Toradol 30 mg, administered as noted without complication using the five rights. Red flags, patient education discussed. .................... .................... .................... .................... .................... .................... .................... . [facility] Consulted: Breanna Calix .................... .................... .................... .................... .................... .................... .................... . Disposition: Fulfilled Breanna Calix MD [address] [facility],[address], [place], [address], [employer] 02/03/2024 10:56:48 02/04/2024 text/html CRC Nurse Triage Notes (Lottie Hill): Reason For Request: Pt was seen by uJwan on 02/03/24 for pain and is requesting a follow up visit>notes no improvements> Chief Complaints: Back pain PMH: COPD/Asthma, Rheumatoid Arthritis, Fibromyalgia Comments: Patient calling in to place a referral, identified via name and . In addition to PMH she has sciatica, carpal tunnel and has had gastric bypass. Patient with several sciatica pain since yesterday, seen by Juwan and given toradol with very minimal effect. [...] .................... .................... .................... .................... .................... .................... . Air Battle Manager Note From Braydon Walker: Patient alert and [...] warm dry secondary exam unremarkable. Good CSM s .[facility] orders Toradol 15 mg IM. Prednisone 40 mg PO. Patient advised to follow up with primary care. [facility] will prescribe more to patient pharmacy. Red flags and patient education discussed. .................... .................... .................... .................... .................... .................... .................... . [facility] Consulted: Jocelyne Bonner .................... .................... .................... .................... .................... .................... .................... . Disposition: Chel Bonner MD [address] [facility],[address], [place], [address], [place] [employer] 02/04/2024 14:36:32 03/06/2024 text/html ROS as noted [...] PMH: COPD/Asthma, Rheumatoid Arthritis, Fibromyalgia, Asthma Comments: Wood Bucker verified the patient's name//address and phone number. [...] emergency treatment if needed -Nicholas Correa RN Air Battle Manager Organization Information for Joce Alicea Business Legal Name: [facility] Address: [address] [place] [address], [place] [address], Tomb Maker Helper: Noramn Villalta MD CLIA No.: [id number] Air Battle Manager POC Test Results from [email or web address] Rapid COVID antigen (11:25:25) COVID: - Rapid influenza antigen (11:25:26) Flu: - .................... .................... .................... .................... .................... .................... .................... . Air Battle Manager Note From Joce Alicea: This 38-year-old female [...] .................... .................... .................... .................... .................... .................... . [facility] Consulted: Guillermo Arboleda .................... .................... .................... .................... .................... .................... .................... . Disposition: Fulfilled Jamil Arboleda MD [address] [place] [address],[address] [facility], [place], [address], [employer] 03/06/2024 12:28:18 12/01/2024 text/html ROS as noted in the HPI CRC Nurse Triage Notes (Danae Rubin): Reason For Request: flu like symptoms /leg pain/headache Patient Reports: Dizziness with positional change Denies: Worst Headache of life New onset of vision loss Sudden onset -unilateral weakness/gait disturbance Fall with head strike and altered LOC New onset of Slurred speech or difficulty finding words Sudden Mental status changes Head pain with fever chills and neck pain Seizure activity Head pain not relieved by medication greater than 8 hours Head pain greater than 8 hours -unrelated to falls or injury Head pain with nausea vomiting Sensitive to light Chief Complaints: Extremity Pain, Common Cold, Headache PMH: COPD/Asthma, Rheumatoid Arthritis, Fibromyalgia, Asthma, Chronic Pain PMH Reviewed at 12/01/2024 - 18:50 Allergies Reviewed at 12/01/2024 - 18:50 Comments: 39 y.o female complains of Extremity Pain, Common Cold, Headache Patient self referring. patient states she has pain over the bridge of her left foot 10/30 and having difficulty bearing weight on her foot since Thursday. no injuries and no repetitive motion. old injury of minor fx in 2012. She is able to bend great toe but her other toes are swollen. Heat has calmed the pain down. tender to touch. Since Thursday experiencing cold like symptoms states headache is very bad and pressure and located front over her eyes nasal congestion, dizziness and sensitivity to light. denies any fever endorses chills denies any nausea or vomiting. denies any kidney disease and is not taking any blood thinners. requesting insted visit. I provided information on the mobile health provider response time and advised the patient and/or caregiver to monitor reported signs and symptoms. I discussed the warning signs of when to seek emergency care. Air Battle Manager Organization Information for Jael Lozano Business Legal Name: [employer]. Address: [address] [place] [address], Tomb Maker Helper: Randal Campos MD CLIA No.: [id number] Air Battle Manager POC Test Results from Jael Lozano iSTAT Chem8+ (21:35:17) Na: 139mEq/L K: 3.6mEq/L Cl: 104mEq/L iCa: 0.94mmol/L TCO2: 23mmol/L Glu: 109mg/dL BUN: 14mg/dL Crea: 0.7mg/dL Hct: 37% Hb: 12.6g/dL Ammol/L Cartridge Number: --- Rapid COVID antigen (21:38:35) COVID: - Rapid influenza antigen (21:38:35) Flu: - .................... .................... .................... .................... .................... .................... .................... . Air Battle Manager Note From Jael Lozano: SC2 dispatched [address] for the flu like symptoms, headache, and foot pain. Pt c/o 3 days of dizzyness, light headedness, shortness of breath, headache, and nausea. Pt c/o of tender left foot on the top for 4 days. Pt does not recall injury. Patient is alert and oriented to baseline. Pt skin pink, warm and dry. Pt denies fever or chills. Pt c/o light headedness, dizziness, headache, and vision changes. Pt skin pink, warm, and dry. Pt c/o shortness of breath, cough, and LS are clear bilaterally. Patient denies chest pain and heart sounds were normal, rate is regular. Patient denies abd pain and abd was soft and non tender in all 4 quadrants. Pt c/o nausea. Pt states vomiting and diarrhea can be normal due to GLP1 inhibitor. Pt states intake and output is decreased. Patients lower extremities show no edema. Pt left bottom turning lathe tender to the touch. [facility] was consulted and the assessment was shared. A 20g IV was started in the left AC. A BMP was obtained. Pt given 1L lactated ringers, 15mg Ketorolac IVP, and 10mg of Reglan IVP. SC2 clears without incident. [facility] Lab Orders: BMP, serum or plasma: Performed rapid SARS CoV 2 Ag, QL IA, respiratory specimen: Performed rapid flu (A+B): Performed [facility] Medication Orders: lactated Ringers intravenous solution: Performed ketorolac 15 mg/mL injection solution: Performed metoclopramide 5 mg/mL injection solution: Performed .................... .................... .................... .................... .................... .................... .................... . [facility] Consulted: Epifanio Cutler .................... .................... .................... .................... .................... .................... .................... . Disposition: Chel EPIFANIO CUTLER MD [address] [place] [address],[address], [place], [address], [employer] 12/01/2024 21:46:21 12/11/2024 text/html CRC Nurse Triage Notes (Hattie Edmonds): Reason For Request: Patient has a cough, and congestion, wants checked out. Patient Reports: Cough, fever greater than 2 days ; History of asthma, increased use of inhaler; Sputum increase ; Cough; Shortness of breath with exertion Denies: Increased work of breathing/labored with or without fever Unable to speak in full sentences without distress Discoloration of skin -cyanosis Needs to sleep sitting up, can t catch breath Shortness of breath in setting of confusion Lower extremity swelling COPD COVID Exposure Pain with inspiration Chief Complaints: Common Cold PMH: COPD/Asthma, Rheumatoid Arthritis, Fibromyalgia, Asthma, Chronic Pain, Osteoarthritis PMH Reviewed at 12/11/2024:44 Allergies Reviewed at 12/11/2024:44 Comments: 39 y.o female complains of Common Cold Self-reporting symptoms: Cough, congestion, sneezing, mild shortness of breath - starting on Thursday - much worse this morning Reports dyspnea on exertion - history of asthma - used inhalers with minimal effect Denies fever, orthopnea Congested cough - sputum with no color Teacher - exposed to many sick contact Requesting covid test Not on anticoagulation, denies kidney issues I provided information on the mobile health provider response time and advised the patient and/or caregiver to monitor reported signs and symptoms. I discussed the warning signs of when to seek emergency care. Air Battle Manager Organization Information for [employer] Legal Name: Shahab P. Tabatabai, Broker. Address: [address] [place] [id number], Tomb Maker Helper: Randal Campos MD IA No.: [id number] Air Battle Manager POC Test Results from Turner Watters - ALS Rapid COVID antigen (11:12:45) COVID: - Attachments uploaded as part of this test result can be found under Documents section. Rapid influenza antigen (11:12:47) Flu: - Blood Glucose Measurement (11:17:12) Blood Glucose: 119mg/dL Attachments uploaded as part of this test result can be found under Documents section. .................... .................... .................... .................... .................... .................... .................... . Air Battle Manager Note From Turner Watters: [facility] responds to the listed address for a 39 yof w/ a c/c of URI symptoms. Upon arrival on scene, pt answers the door and invites MI inside. She is not in acute distress, no stridor or sonorous respirations are present and she is fully ambulatory. When she sits on the sofa for evaluation, she is mildly sob, but she is not tripoding and she is not using accessory muscles to breathe. No ashen or painter color are present, no facial droop or one-sided weakness are observed, and she is not bleeding anywhere. Pt tells MIH she has been experiencing common cold s/s since . Today, she is getting ready to leave for an emergency trip to [place] and wants to make sure she does [...] smooth and coordinated manner. 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 Ddx: COVID/flu, URI, asthma exacerbation [facility] obtains vital signs and pt is swabbed [...] CMS is intact in all four extremities. [facility] contacts [facility] and discusses the above and [facility] agrees w/ [facility] to administer one duoneb. [facility] administers one duoneb via nebulizer pipe at 8lpm O2. Pt continues to be animated and talkative w/ the pipe in her mouth and [facility] needs to consistently redirect pt to concentrate on the treatment. Lung sounds are reassessed post treatment and they are clear to auscultation throughout. Pt endorses feeling better w/ decreased respiratory effort and thanks [facility] for the visit. [facility] encourages pt to continue her supportive care for her symptoms as best she can while traveling. [facility] is clear. Report completed by JAQUELINE Watters [id number]. [facility] Lab Orders: rapid SARS CoV 2 Ag, QL IA, respiratory specimen: Performed rapid flu (A+B): Performed [facility] Medication Orders: ipratropium 0.5 mg-albuterol 3 mg (2.5 mg base)/3 mL nebulization soln: Performed .................... .................... .................... .................... .................... .................... .................... . [facility] Consulted: Breanna Calix .................... .................... .................... .................... .................... .................... .................... . Disposition: Fulfilled Breanna Calix MD [address] [place] [address],[address], [place], [address], [employer]og[employer] [facility] 12/11/2024 15:55:28 OBGyn Episode No OBEpisode recorded.
--- OUTSIDE RECORDS SUMMARY | 2025-01-28 07:50 | XMS_ITS | Clinical Summary ---
Author Organization [address] Address [address] [place] [phone] Phone Care Team Providers Care Systems Technician Name Role Phone Name, Tucker PEARSON Primary Care Provider [phone] Surgical History Surgery Date Site/Laterality Comments FLEXIBLE SIGMOIDOSCOPY 02/27/2009 PROCEDURE: SC SIGMOIDOSCOPY FLX DX W/COLLJ SPEC BR/WA IF PFRMD; COMMENT: normal CHOLECYSTECTOMY 03/23/2009 PROCEDURE: SC CHOLECYSTECTOMY OTHER SURGICAL HISTORY 03/23/2009 PROCEDURE: SC COLPOSCOPY CERVIX UPPER/ADJACENT VAGINA; COMMENT: hasn't had pap since then GASTRIC BYPASS 03/23/2012 PROCEDURE: GASTRIC BYPASS FOR OBESIT SECTION 03/18/2016 PROCEDURE: HISTORICAL DELIVERY; COMMENT: intolerance OTHER SURGICAL HISTORY 10/2021 PROCEDURE: CERVICAL LEEP CONE BIOPSY SPCMN PATHOLOGY EX; COMMENT: for LINDA II - LEEP path negative Medical History Medical History Date Comments Morbid obesity ([facility] V24, [facility] V28) DX:Morbid obesity (HCC) Cholelithiasis DX:Cholelithiasi s Diabetes mellitus ([facility] V 24, [facility] V28) DX:Diabetes mellitus JOSE A (obstructive sleep apnea) DX :JOSE A (obstructive sleep apnea); COMMENT: resolved Depression DX:Depression; C OMMENT: well controlled RAD (reactive airway disease) DX :RAD (reactive airway disease) Tobacco abuse DX:Tobacco abuse ; COMMENT: stopped 12/02 Chronic back pain DX:Chronic lin k pain DVT, lower extremity ([facility]/ C V24, [facility] V28) DX:DVT, lower extremity (HCC ); COMMENT: [...] of 2 - Risk 2-dose series) 09/12/2003 HPV Vaccines (1 - 3-dose SCDM series) 09/12/2011 Hepatitis B Vaccines (3 of 3 - [...] 05/25/2012 Cholesterol Screening (Lipid Panel) 12/15/2028 12/16/2023 RSV Immunization Adult Patients (1 - 1-dose 75+ series) 09/12/2059 Pneumococcal [...] RESULTING AGENCY - 12/05/2022 6:26 AM EDT [id number] THINPREP PAP, IMAGED: NEGATIVE FOR SQUAMOUS INTRAEPITHELIAL LESION AND MALIGNANCY . ANGELY RACHEL , JONATHAN(ASCP) (CASE ELECTRONICALLY SIGNED 12 04 2022) RESULT [...] to Health Maintenance Insurance [place]ICAID - [place] [facility] MEDICARE Member Subscriber Plan / Payer (Ef fective 2018-Present) Name:Nelly Lanier Relation to Subscriber:Self Name:Nelly Lanier Payer ID:[id number] Group ID:[id number] Type:Not on file Address: [address] [place] [id number] Care Teams Systems Technician Relationship Specialty Start Date End Date Name, MD [address] [place], [place] PCP - General Internal Medicine 03/09/19
--- OUTSIDE RECORDS SUMMARY | 2025-01-28 07:50 | XMS_ITS | Encounter Summary ---
Author Organization [facility] Address [address] [place] [address] Encounters * CPT with Medical instED at [facility] on 2024-12-02 { reasonForRequest : flu like symptoms /leg pain/headache , patientReports& quot;: Dizziness with positional change , denies :[ Worst Headache of life& quot;, New onset of vision loss , Sudden onset -unilateral weakness/gait disturbance", Fall with head strike and altered LOC , New onset of Slurred speech or difficulty finding words , Sudden Mental status changes , Head pain with fever chillsand neck pain , Seizure activity , Head pain not relieved by medication greaterthan 8 hours , Head pain greater than 8 hours -unrelated to falls or injury , Head pain with nausea vomiting , Sensitive to light ], chiefComplaints :"Extremity Pain, Common Cold, Headache , pmh : COPD/Asthma, Rheumatoid Arthritis, Fibromyalgia, Asthma, Chronic Pain , allergies : No Known Drug Allergies , otherAllergies : , painAssessment : , visitOutcome& quot;: , additionalComments : 39 y.o female complains of Extremity Pain, Common Cold, Headache\nPatient self referring. \npatient states she has pain over the bridge of her left foot 10/30 and having difficulty bearing weight on her foot since Thursday. no injuries and no repetitive motion. old injury of minor fx in 2012. She is able to bend great toe but her other toes areswollen. Heat has calmed the pain down. tender to touch. \nSince Thursday experiencing cold like symptoms\nstates headache is very bad and pressure and located front over her eyes\nnasal congestion, dizziness and sensitivity to light. \ndenies any fever endorses chills \ndenies any nausea or vomiting. \ndenies any kidney disease and is not taking any blood thinners.\nrequesting insted visit. \n\nI provided information on the mobile health provider response time and advised the patient and/or caregiver to monitor reported signs and symptoms. I discussed the warning signs of when to seek emergency care. } [facility]2 dispatched Kalyan Veloz Dr. for the flu like symptoms, headache, [...] Pt skin pink, warm, and dry. Pt c/oshortness of breath, cough, and LS are clear [...] lower extremities show no edema. Pt left chicken tender to the touch. [facility] was consulted and the assessment was shared. A 20g IV was started in the left AC. A BMP was obtained. Pt given 1L lactated ringers, 15mg Ketorolac IVP, and 10mg of Reglan IVP. SC2 clears without incident. IV_(FLUIDS_AND/OR_MEDICATION), MEDICATION_IM, ORAL_MEDICATION, EKG, POC_BLOODWORK, POC_FLU_STREP, COVID_TEST, WOUND_CARE, ORTHOSTATIC_VITAL_SIGNS [facility] 2024-12-02
--- OUTSIDE RECORDS SUMMARY | 2025-01-28 07:50 | XMS_ITS | Encounter Summary ---
Author Organization [employer] Address [address] [place] [address] Care Team Providers Care Cabinet Builder Name Role Phone Name, Tucker PEARSON Primary Care Provider [phone] Malik Quiles Unavailable Unavailable Reason for Visit * Reason Comments Med Refill Encounter Details Date Type Department Care Team ([facility] st Contact Info) Description 10/23/2024 Refill [facility] MEDICINE [address] [place], [place] [phone] Name, MD [address] [place] [address] Social History Tobacco Use Types Packs/Day Years [...] documented as of this encounter Care Teams Cabinet Builder Relationship Specialty Start Date End Date Name, MD [address] [place] [address] PCP - General Family Medicine 08/13/15 Malik Quiles [address] [place] [address] Dental Group Sales Coordinator 05/12/24 documented as of this encounter
--- OUTSIDE RECORDS SUMMARY | 2025-01-28 07:50 | XMS_ITS | Encounter Summary ---
Author Organization [employer] Address [address] [place] [address] Care Team Providers Care Deckhand Shrimp Boat Name Role Phone Name, Tucker PEARSON Primary Care Provider [phone] Malik Quiles Unavailable Unavailable Reason for Visit * Reason Comments Med Change Request Encounter Details Date Type Department Care Team ([facility] Contact Info) Description 03/25/2024 Refill [facility] MEDICINE [address] [place], [place] [phone] Name, MD [address] [place] [address] Social History Tobacco Use Types Packs/Day Years [...] documented as of this encounter Care Teams Deckhand Shrimp Boat Relationship Specialty Start Date End Date Name, MD [address] [place] [address] PCP - General Family Medicine 08/13/15 Malik Quiles [address] [place] [address] Dental Material Loader 05/12/24 documented as of this encounter
--- OUTSIDE RECORDS SUMMARY | 2025-01-28 07:50 | XMS_ITS | Encounter Summary ---
Author Organization [employer] Address [address] [place] [address] Care Team Providers Care Cold Working Supervisor Name Role Phone Name, Tucker PEARSON Primary Care Provider [phone] Malik Quiles Unavailable Unavailable Encounter Details Date Type Department Care Team (Late st Contact Info) Description 05/24/2024 Orders Only [facility] [address] [place], [place] [phone] Provider, MD Zahraa Social History Tobacco Use Types Packs/Day Years [...] EDT) Historical Provider HEALTH MAINTENANCE Final Result documented in this encounter Visit Diagnoses Not on filedocumented in this encounter Additional Health Concerns Assessment Noted Time PHQ-9 Depression Total Score: 3 01/28/20 24 9:46 AM EST documented as of this encounter Care Teams Cold Working Supervisor Relationship Specialty Start Date End Date Name, MD [address] [place] [address] PCP - General Family Medicine 08/13/15 Malik Quiles [address] [place] [address] Dental Outpatient Case Manager 05/12/24 documented as of this encounter
== END 2025-01-28 07:48 | disposition home or self-care (01) ==
LOC: HO.MAMMO 07:47
PROVIDERS: PCP Internal Medicine Geriatric Medicine; Visit Provider Internal Medicine Geriatric Medicine
DX: Z12.31 Encounter for screening mammogram for malignant neoplasm of breast (principal)
CPT/HCPCS: 77063; 77067

== ENCOUNTER → 2025-02-06 19:07 | Outpatient (BNV) | payer OTHER, SELFPAY | PROVIDERS: Visit Provider Radiology Diagnostic Radiology | DX: M47.817 Spondylosis without myelopathy or radiculopathy, lumbosacral region (principal); M51.26 Other intervertebral disc displacement, lumbar region | CPT/HCPCS: 72148 ==

== ENCOUNTER 2025-02-06 19:08 | Outpatient (REF) | payer OTHER, SELFPAY ==
--- NOTE | ~2025-02-06 | MR_ITS ---
EXAMINATION: MR LUMBAR SPINE WITHOUT CONTRAST CLINICAL INFORMATION: M 54.50 COMPARISON: None available. TECHNIQUE: MRI of the lumbar spine was obtained using routine sequences without contrast. FINDINGS: Last rib-bearing vertebra labeled T12. There is a subtle bone marrow STIR signal in the anterior superior endplate of T11 and anterior inferior endplate of T10. Multilevel marginal osteophyte formation and disc desiccation pronounced at T10-11, L1 to, L4-5 and L5-S1 level. Focal hyperintense T2 signal in the posterior intervertebral disc L1 to likely focal annular fissure. Normal alignment. Modic type II endplate changes, L5-S1. Conus medullaris ends at intervertebral disc L1-2 with normal signal. T11-12: No disc herniation. No neuroforamina stenosis. T12-L1: No disc herniation. No neuroforamina stenosis. L1-2: Broad-based disc bulging. Facet joint hypertrophy. Reduced AP diameter of the thecal sac. No compression upon neural elements. L2-3: Broad-based disc bulging. Facet joint hypertrophy. No central spinal canal or neuroforamina stenosis. L3-4: Broad-based disc bulging. Facet joint hypertrophy. Reduced AP diameter of the thecal sac. No compression upon neural elements. L4-5: Right subarticular and foraminal broad-based herniated disc encroaching/compressing the right L5 on its lateral recess. Bilateral facet joint hypertrophy resulting in bilateral, right greater than left neuroforamina and stenosis encroaching the L4 exiting nerve roots. L5-S1: Broad-based disc bulging. Facet joint hypertrophy. No central spinal canal stenosis. Left neuroforamina narrowing. No prevertebral compartment hematoma, mass or fluid collection. MR/MR lumbar spine wo con IMPRESSION: Right subarticular and foraminal broad-based disc herniation, L4-5 encroaching the right L5 nerve root. Spondylosis at L4-5 and L5-S1 encroaching the exiting nerve roots. Electronically signed by: Devin Deluca MD 02/07/2025 06:56 AM EST
--- OUTSIDE RECORDS SUMMARY | 2025-02-07 07:38 | XMS_ITS | Data Portability ---
Author Organization [facility], [facility] Address [address] [place] [address] Care Team Providers Care Circus Performer Name Role Phone HIM CCA OTHER Unavailable Primary Care Provider Assessment Encounter Date Assessment Date Assessment LastModified by Organization Details LastModified Time 02/03/2024 02/03/2024 I provided real -time medical direction via phone for this encounter and was available for additional phone-based assistance as needed. I have reviewed and agree with the Assessment and Plan as documented by the Claims Agent Right Of Way. Patient given the opportunity to ask questions. Our service contacted for an assessment of: Chronic right back pain As per above, patient with hx of chronic right-sided back pain. No new or worsening red S&S. No new bowel/bladder symptoms. No new gait abnl. No new neurological signs, symptoms or deficits. Per gear cutting machine set up operator on the scene, VSS, non-toxic. Neuro grossly [...] Assessment and Plan as documented by the Claims Agent Right Of Way. Patient given the opportunity to ask questions. Our service contacted for an assessment of: Viral URI symptoms As per above, patient with approximately several days of viral URI symptoms. Denies fever or chills. Denies chest pain, shortness of breath, dyspnea on exertion. Positive nasal congestion and dry cough. Per gear cutting machine set up operator on the scene, vital signs are stable and patient is afebrile. + wheezing heard on exam. COVID and Flu are both negative. No increased work of breathing and no distress. Impression: Common cold and viral URI Plan: Continue with bvxn-mkt-abefyvp medications to control symptoms. Duoneb times one [...] Ag, QL IA, respiratory specimen 2024 025 [facility], [address] [place] [address], [phone] 16:05:15 rapid flu (A+B) 2024 025 [facility], [address] [place] [address], [phone] 16:05:33 BMP, serum or plasma 2024 025 [facility], [address] [place] [address], [phone] 21:48:55 rapid SARS CoV 2 Ag, QL IA, respiratory specimen 2024 025 [facility], [address] [place] [address], [phone] 21:48:56 rapid flu (A+B) 2024 025 [facility], [address] [place] [address], [phone] 5 21:48:56 rapid SARS CoV 2 Ag, QL IA, respiratory specimen 2023 024 [facility], [address] [place] [address], [address] 4 01:47:53 rapid flu (A+B) 2023 024 [facility], [address] [place] [address], [phone] 4 01:47:37 urinalysis, dipstick 2023 024 [facility], [address] [place] [address], [address] 4 19:05:01 Referral None recorded. Procedures None recorded. Surgeries None recorded. Imaging None recorded. Medication Orders ipratropium 0.5 mg-albutero l 3 mg (2.5 mg base)/3 mL nebulizatio n soln 2024 025 [email or web address] [address] [place], [address], 5 11:32:04 lactated Ringers intravenous solution 2024 025 [facility]/Pharmacy #2071, [address] [place], [address], 5 19:55:57 ketorolac 15 mg/mL injection solution 2024 025 [facility]/Pharmacy #2071, [address] [place], [address], 5 19:55:57 metoclopram sarah 5 mg/mL injection solution 2024 025 [facility]/Pharmacy #2071, [address] [place], [address], 5 19:55:57 benzonatate 100 mg capsule 2023 024 [facility] [address] [place], [address], 4 11:40:51 ketorolac 30 mg/mL injection solution 2023 024 [facility] [address] [place], [address], 4 13:04:11 prednisone 20 mg tablet 2023 024 [facility]/Pharmacy #2071, [address] [place], [address], 4 13:04:11 prednisone 20 mg tablet 2023 024 [facility] [address] [place], [address], 4 14:36:30 ketorolac 30 mg/mL (1 mL) injection solution [address]23 [email or web address] [facility] [address] [place], [address], 4 10:36:09 Patient TargetsNo targets recorded. Patient [...] cm 74 /min 98 % 98 % 148789. 88 g 16 /min 126/88 mm[Hg] Not Available [facility] 5 19:23:32 Date Recorded Body temperature Heart rate Oxygen saturation Oxygen saturation in Arterial blood by Pulse oximetry Body weight Body height Respiratory rate Systolic And Diastolic Provider Name and Address Organization Details Last Updated DateTime 5 99.2 [degF] 88 /min 99 % 99 % 222216. 696 g 162.56 cm 18 /min 124/74 mm[Hg] Not Available [employer] 5 11:21:08 Date Recorded Oxygen saturation Oxygen saturation in Arterial blood by Pulse oximetry Respiratory rate Body temperature Body weight Heart rate Body height Systolic And Diastolic Provider Name and Address Organization Details Last Updated DateTime 4 98 % 98 % 14 /min 97.6 [degF] 865430. 6 g 92 /min 152.4 cm 145/80 mm[Hg] Not Available [employer] [facility] 4 10:04:03 Date Recorded Body temperature Respiratory rate Oxygen saturation Oxygen saturation in Arterial blood by Pulse oximetry Body height Heart rate Body weight Systolic And Diastolic Provider Name and Address Organization Details Last Updated DateTime 4 98 [degF] 14 /min 98 % 98 % 157.48 cm 71 /min 684820. 6 g 128/86 mm[Hg] Not Available [facility] - production 4 12:46:24 Date Recorded Oxygen saturation Oxygen saturation in Arterial blood by Pulse oximetry Respiratory rate Body height Heart rate Body temperature Body weight Systolic And Diastolic Provider Name and Address Organization Details Last Updated DateTime 4 99 % 99 % 16 /min 162.56 cm 82 /min 97.6 [degF] 198903. 128 g 107/76 mm[Hg] Not Available [facility] ([facility] - production 4 11:26:02 Social History None [...] ICD10 Code Diagnosis IMO Codes Diagnosis Note [id number] Carl Pierson MD Main - [facility] [address] [place] [phone] 01/23/2023 15:48:21 01/27/2023 09:42:22 Sciatica [id number] M54.31 Patient reports acute-on-c hronic pain from sciatica. No new features of the pain. No history or exam findings to suggest cord compromise or secondary back pain. Plan for pain control and continued outpatient treatment. [id number] Humaira Marquez MD [facility] - [facility] [address] [place] [phone] 03/28/2023 19:02:25 03/29/2023 15:28:00 Exacerbation of intermittent asthma [id number] J45.21 I provided real -time medical direction via phone for this encounter, and was available for additional phone based assistance as needed. I have reviewed and agree with the Assessment and Plan as documented by the Claims Agent Right Of Way. Patient given the opportunit y to ask questions. 37 yo w/ asthma. treated for exacerbati on with azithro around the , completed course. Sx recrudesce d 1-2d ago. not expectorat ing sputum, hadn't been taking nebs or controller inhalers. Discussed appropriat e use of inhalers and nebulizers . Will prescribe 5d course prednisone and fexofenadi ne for antihistam ine. [id number] EPIFANIO CUTLER MD Main - [facility] [address] [place] [phone] 09/26/2023 18:34:39 09/28/2023 14:31:54 Acute COVID-19 [id number] U07.1 Evaluation in the field was performed by my gear cutting machine set up operator colleague, as noted above, I provided real-time [...] to tolerate PO or any other concerns. [id number] Breanna Calix MD [facility] - [facility] [address] [place] [phone] 09/30/2023 17:41:35 09/30/2023 19:48:09 Right side sciatica [id number] 30620 M54.31 [id number] Breanna Calix MD [facility] - [facility] [address] [place] [phone] 02/03/2024 10:03:59 02/03/2024 14:20:43 Chronic low back pain 100478107 M54.50 [id number] Jocelyne Bonner MD [facility] - [facility] [address] [place] [phone] 02/04/2024 12:46:20 02/04/2024 17:20:33 Chronic low back pain 122119924 M54.50 As noted, we were called to see this patient regarding concerns of back pain. Evaluation in the field was performed by my gear cutting machine set up operator colleague, as noted above, I provided real-time [...] changes to consciousn ess, chest pain, dyspnea. [id number] Jamil Arboleda MD [facility] - [facility] [address] [place] [phone] 03/06/2024 11:26:00 03/07/2024 11:52:24 Viral upper respiratory tract infection [id number] J06.9 Patient with symptoms of URI; coughing, runny nose, hx of asthma though no current wheezing. COVID/flu negative. No red flag signs on exam. No fever. Satting well on RA. Continue supportive care. Will rx Tessalong pearles. Discussed red flag signs and symptoms to present for higher level of care. [id number] EPIFANIO CUTLER MD [facility] ED Medical [facility] [address] [place] [phone] 12/01/2024 19:23:27 12/01/2024 22:28:06 Headache 54691447 R51.9 [id number] Evaluation in the field was performed by my gear cutting machine set up operator colleague, as noted above, I provided real-time [...] very swollen, or unable to bear weight [id number] Breanna Calix MD [facility] ED Medical [address] [phone] 12/11/2024 11:21:01 12/12/2024 23:56:51 Viral upper respiratory tract infection [id number] J06.9 [id number] Common cold 95171988 J00 21531 Health Concerns Section Related Observation LastModified by Organization Detai ls LastModified Time None Recorded Concern Status LastModified by Organization Details LastModified Time None Recorded Advance Directives Directive None Recorded Payers Insurance Date Sequence Insurance Name Policy Number Policy Naranjo Covered Member ID Naranjo Member ID Guarantor Name 12/11/2024 1 [facility] - DOS ON OR AFTER 2022 - DUAL ELIGIBLE - ALF OPTIONS AND ONE CARE (MEDICARE REPLACEMENT/ADV ANTAGE - HMO) Nelly Lanier [id number] Nelly Lanier Notes Date Note Type Note Provider Name and Address Organization Details Recorded Time 02/03/2024 text/html CRC Nurse Triage Notes (Angella Mason): Chief Complaints: Joint pain/swelling PMH: COPD/Asthma, Rheumatoid Arthritis, Fibromyalgia Pain Assessment: Level 10 out of 10 Comments: Duck Bill Operator verified the member's name//address and phone [...] s/s and seek emergency treatment if needed Claims Agent Right Of Way Organization Information for Braydon Walker Business Legal Name: [facility] Address: [address] [place] [address], [place] [address], Slicing Machine Feeder: Norman Villalta MD CLIA No.: [id number] Claims Agent Right Of Way POC Test Results from Braydon Walker Urine Dipstick (09:18:23) Urine leukocytes: - JUVENTINO Urine nitrites: - NIT Urine urobilinogen: 0.2 URO Urine protein: - PRO Urine pH: 5.0 pH Urine blood: - BLO Urine specific gravity: 1.010 SG Urine ketones: - KET Urine bilirubin: - AILYN Urine glucose: - GLU .................... .................... .................... .................... .................... .................... .................... . Claims Agent Right Of Way Note From Braydon Walker: Patient alert and [...] to provide urine sample. Urine dip negative. [facility] orders Toradol 30 mg, administered as noted without complication using the five rights. Red flags, patient education discussed. .................... .................... .................... .................... .................... .................... .................... . [facility] Consulted: Breanna Calix .................... .................... .................... .................... .................... .................... .................... . Disposition: Fulfilled Braenna Calix MD [address] [facility],[address], [place], [address], [employer] 02/03/2024 10:56:48 02/04/2024 text/html CRC Nurse Triage [...] .................... .................... .................... .................... .................... .................... . Claims Agent Right Of Way Note From Braydon Walker: Patient alert and [...] dry secondary exam unremarkable. Good CSM s .[facility] orders Toradol 15 mg IM. Prednisone 40 mg PO. Patient advised to follow up with primary care. [facility] will prescribe more to patient pharmacy. Red flags and patient education discussed. .................... .................... .................... .................... .................... .................... .................... . [facility] Consulted: Jocelyne Bonner .................... .................... .................... .................... .................... .................... .................... . Disposition: Chel Bonner MD [address] [facility],[address], [place], [phone], [place] [employer] 02/04/2024 14:36:32 03/06/2024 text/html ROS as noted [...] PMH: COPD/Asthma, Rheumatoid Arthritis, Fibromyalgia, Asthma Comments: Duck Bill Operator verified the patient's name//address and phone [...] emergency treatment if needed -Nicholas Correa RN Claims Agent Right Of Way Organization Information for Joce Alicea Business Legal Name: [facility] Address: [address] [place] [address], [place] [address], Slicing Machine Feeder: Norman Villalta MD CLIA No.: [id number] Claims Agent Right Of Way POC Test Results from [employer] Rapid COVID antigen (11:25:25) COVID: - Rapid influenza antigen (11:25:26) Flu: - .................... .................... .................... .................... .................... .................... .................... . Claims Agent Right Of Way Note From Joce Alicea: This 38-year-old female [...] .................... .................... .................... .................... .................... .................... . [facility] Consulted: Guillermo Arboleda .................... .................... .................... .................... .................... .................... .................... . Disposition: Fulfilled Jamil Arboleda MD [address] [place] [address],[address] [facility], [place], [address], [employer] 03/06/2024 12:28:18 12/01/2024 text/html ROS as noted [...] signs of when to seek emergency care. Claims Agent Right Of Way Organization Information for Jael Lozano Business Legal Name: [employer]. Address: [address] [place] [address], Slicing Machine Feeder: Randal Campos MD CLIA No.: [id number] Claims Agent Right Of Way POC Test Results from Jael Lozano iSTAT Chem8+ (21:35:17) Na: 139mEq/L K: 3.6mEq/L Cl: 104mEq/L iCa: 0.94mmol/L TCO2: 23mmol/L Glu: 109mg/dL BUN: 14mg/dL Crea: 0.7mg/dL Hct: 37% Hb: 12.6g/dL Ammol/L Cartridge Number: --- Rapid COVID antigen (21:38:35) COVID: - Rapid influenza antigen (21:38:35) Flu: - .................... .................... .................... .................... .................... .................... .................... . Claims Agent Right Of Way Note From Jael Lozano: SC2 dispatched 122 [...] lower extremities show no edema. Pt left warp dyeing vat tender to the touch. [facility] was consulted and the assessment was shared. A 20g IV was started in the left AC. A BMP was obtained. Pt given 1L lactated ringers, 15mg Ketorolac IVP, and 10mg of Reglan IVP. SC2 clears without incident. [facility] Lab Orders: BMP, serum or plasma: Performed rapid SARS CoV 2 Ag, QL IA, respiratory specimen: Performed rapid flu (A+B): Performed [facility] Medication Orders: lactated Ringers intravenous solution: Performed ketorolac 15 mg/mL injection solution: Performed metoclopramide 5 mg/mL injection solution: Performed .................... .................... .................... .................... .................... .................... .................... . [facility] Consulted: Epifanio Cutler .................... .................... .................... .................... .................... .................... .................... . Disposition: Chel EPIFANIO CUTLER MD [address] [place] [address],[address], [place], [address], [employer] 12/01/2024 21:46:21 12/11/2024 text/html CRC Nurse Triage [...] signs of when to seek emergency care. Claims Agent Right Of Way Organization Information for Janene Kathyronald [employer] Legal Name: [employer]. Address: [address] [place] [address], Slicing Machine Feeder: Randal Campos MD IA No.: [id number] Claims Agent Right Of Way POC Test Results from Turner Watters - ALS Rapid COVID antigen (11:12:45) COVID: - Attachments uploaded as part of this test result can be found under Documents section. Rapid influenza antigen (11:12:47) Flu: - Blood Glucose Measurement (11:17:12) Blood Glucose: 119mg/dL Attachments uploaded as part of this test result can be found under Documents section. .................... .................... .................... .................... .................... .................... .................... . Claims Agent Right Of Way Note From Turner Watters: SC6 responds to [...] to leave for an emergency trip to [place] and wants to make sure she does [...] smooth and coordinated manner. 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 Ddx: COVID/flu, URI, asthma exacerbation [facility] obtains vital signs and pt is swabbed [...] CMS is intact in all four extremities. [facility] contacts [facility] and discusses the above and [facility] agrees w/ [facility] to administer one duoneb. [facility] administers one duoneb via nebulizer pipe at 8lpm O2. Pt continues to be animated and talkative w/ the pipe in her mouth and [facility] needs to consistently redirect pt to concentrate on the treatment. Lung sounds are reassessed post treatment and they are clear to auscultation throughout. Pt endorses feeling better w/ decreased respiratory effort and thanks [facility] for the visit. [facility] encourages pt to continue her supportive care for her symptoms as best she can while traveling. [facility] is clear. Report completed by JAQUELINE Watters [id number]. [facility] Lab Orders: rapid SARS CoV 2 Ag, QL IA, respiratory specimen: Performed rapid flu (A+B): Performed [facility] Medication Orders: ipratropium 0.5 mg-albuterol 3 mg (2.5 mg base)/3 mL nebulization soln: Performed .................... .................... .................... .................... .................... .................... .................... . [facility] Consulted: Breanna Calix .................... .................... .................... .................... .................... .................... .................... . Disposition: Fulfilled Breanna Calix MD [address] [place] [address],[address], [place], [phone], [employer] [facility] 12/11/2024 15:55:28 OBGyn Episode No OBEpisode recorded.
== END 2025-02-06 19:09 | disposition home or self-care (01) ==
LOC: HO.MRI 19:08
PROVIDERS: Visit Provider Orthopaedic Surgery
DX: M79.604 Pain in right leg (principal); M79.605 Pain in left leg; M54.50 Low back pain, unspecified
CPT/HCPCS: 72148

== ENCOUNTER 2025-03-08 13:34 | Outpatient (AMB) | payer OTHER, SELFPAY ==
[2025-03-08 13:39] VITALS: BP 110/72; PULSE 85; O2SAT 99; BMI 43.9
--- NOTE | 2025-03-08 13:39 | A.OFFVIS_ITS ---
Vital Signs 03/08/25 13:39 Height 5 ft 4 in Weight 256 lb BMI 43.9 BP 110/72 Blood Pressure Location Lt brachial Position Sitting Pulse 85 Pulse Source Pulse Oximeter Pulse Oximetry (%) 99 Oxygen Delivery Method Room Air Intake Visit Reasons: Asthma Intake Note: pt is here for follow up and states she is not good with her breathing, Allergies No Known Allergies (No Known Allergies*) Allergy (Verified 03/08/25 13:58) Medication List - Last Reconciled 03/08/25 by Teodora Cordova MD acetaminophen (Tylenol Extra Strength) 500 mg PO Q6H PRN acetaminophen ER 650 mg PO Q12H albuterol sulfate 90 mcg/actuation (Ventolin HFA) 2 puffs inhalation Q4-6H PRN 30 days calcium citrate-vitamin D3 500 mg-12.5 mcg (500 unit) tabs PO ferrous sulfate 324 mg PO DAILY fluticasone propion-salmeterol 500-50 mcg/dose (Wixela Inhub) 1 inh inhalation BID fluticasone propionate 50 mcg/actuation intranasal inhalational spacing device (Compact Space Chamber) As directed lorazepam 0.5 mg PO DAILY PRN omeprazole 20 mg PO DAILY sertraline 200 mg PO QAM tirzepatide (weight loss) (Zepbound) 12.5 mg subcut QWEEK zolpidem 5 mg PO BEDTIME PRN Do you need a note to return to daycare/school/sports/work: No HPI HPI Asthma: Details: This 39 years old female is here for 6 months follow-up for management of her bronchial asthma. Since her last visit she had 2 episodes of increased shortness of breath and cough. Her PCP did upgrade the treatment changing Wixela to 500-50 1 inhalation b.i.d.. With this her breathing has remained fairly stable and controlled . At present she denies any cough or wheezing. She is on weight loss management with Zepbound injection and has lost significant weight. Her breathing has also improved with this . She denies any symptoms of sleep apnea. 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 Social History Alcohol intake: never Patient Tobacco Use Status: Former Tobacco user Review of Systems Const All systems reviewed & are unremarkable except as noted in HPI and below Eyes Reports no additional complaints ENT Reports nasal congestion (Mild off and on) Card Denies chest pain, Denies irregular heart rhythm and Denies leg edema Resp Reports as per HPI and Reports cough (INCREASED) GI Reports no additional complaints Reports no additional complaints Musc Reports back pain and Reports myalgias Skin/Breast Reports system reviewed and no additional complaints, except as documented Neuro Reports no additional complaints Psych Reports depression (Controlled with sertraline) Endo Reports no additional complaints Aller/Immun Reports no additional complaints Physical Exam Vital Signs: Last Vital Signs Pulse 85 03/08/25 13:39 BP 110/72 03/08/25 13:39 Pulse Ox 99 03/08/25 13:39 Oxygen Delivery Method Room Air 03/08/25 13:39 BMI result Body Mass Index 43.9 Const Other: Grossly obese General: comfortable, no acute distress, alert and awake Orientation/consciousness: patient oriented x3 HEENT Head: Yes normal to inspection General nose exam: No nasal polyps present and No nasal discharge present Face and sinus: Yes sinuses nontender Mouth: oropharynx normal Throat: Yes posterior oropharynx normal Eyes General: appearance normal, both eyes and all related structures Neck Neck: Yes normal visual inspection, Yes no lymphadenopathy, Yes trachea midline and Yes no JVD Thyroid: Thyroid normal Chest Chest palpation & inspection: normal inspection of the chest, normal palpation of entire chest wall and no tenderness Resp Other: Percussion note is resonant, breath sounds are equal on both sides but decreased over the lower lobe areas. On auscultation both lungs are clear and I did not hear any wheezes or rhonchi. Cardio Palpation: normal PMI Rate: regular rate Rhythm: regular rhythm Heart sounds: no gallops and no murmurs GI Palpation (GI): Soft to palpation, nontender, No hepatosplenomegaly present, no masses and Other GI palpation findings present (Abdomen is grossly obese and protuberant.) Auscultation: normal bowel sounds Back/Spine/Pelvis Thoracic/Lumbar Spine: thoracic and lumbar spine normal to inspection and thoraco-lumbar ROM limited Skin General skin exam: no rashes or lesions noted Neuro General: patient oriented x3 and no focal motor deficits Cranial nerves: Yes CN's II-XII intact bilaterally Extrem General: Yes normal to inspection, Yes no clubbing, cyanosis or edema and Yes no calf tenderness Psych Appearance: grossly normal and well kempt Speech and movement: Normal speech and movement present Assessment & Plan Assessment & Plan (1) Asthma: Comment: BRONCHIAL ASTHMA, INTERMITTENT, CURRENTLY CONTROLLED AND STABLE. THE DOSE OF WIXELA HAS BEEN INCREASED TO 500-51 INHALATION B.I.D.. Code(s): J45.909 - Unspecified asthma, uncomplicated Category: Medical Plan: I THINK WITH THE NEXT REFILL IT SHOULD BE DOWN ADJUSTED TO 250-51 INHALATION B.I.D. AND CONTINUE TO USE THE PROAIR 2 PUFFS Q 6 HOURS P.R.N.. (2) Morbid obesity: Comment: Patient is known case of morbid obesity. S/P gastroplasty in 2013 at [facility], initially with good results. She had regained weight. Now she is on Zepbound injection q.month, and has lost significant weight from her last visit. She is very happy about her progress in losing weight. Again to mention that she has no symptoms of obstructive sleep apnea. Code(s): E66.01 - Morbid (severe) obesity due to excess calories Category: Medical Plan: Encouraged to keep on this current therapy and keep on losing weight. Medications: Refilled albuterol sulfate 90 mcg/actuation (Ventolin HFA) 2 puffs inhalation Q4-6H PRN 8.5 grams 5RF shortness of breath or wheezing 30 days Coding Level of Care Code Est Pt Level 3 (49792) Diagnoses Asthma J45.909 Morbid obesity E66.01
--- OUTSIDE RECORDS SUMMARY | 2025-03-08 18:08 | XMS_ITS | Continuity of Care Document ---
Author Organization [facility] Address [address] [place] [address] Care Team Providers Care Jail Officer Name Role Phone HIM CCA OTHER Unavailable Primary Care Provider Assessment Encounter Date Assessment Date Assessment LastModified by Organization Details LastModified Time 12/11/2024 12/11/2024 I provided real -time medical direction via phone for this encounter and was available for additional phone-based assistance as needed. I have reviewed and agree with the Assessment and Plan as documented by the Translational Specialist. Patient given the opportunity to ask questions. Our service contacted for an assessment of: Viral URI symptoms As per above, patient with approximately several days of viral URI symptoms. Denies fever or chills. Denies chest pain, shortness of breath, dyspnea on exertion. Positive nasal congestion and dry cough. Per cost and sales record supervisor on the scene, vital signs are stable and patient is afebrile. + wheezing heard on exam. COVID and Flu are both negative. No increased work of breathing and no distress. Impression: Common cold and viral URI Plan: Continue with [id number] medications to control symptoms. Duoneb times one [...] or worsening serious symptoms, particularly fever chills [email or web address] Not available 12/11/2024 11:30:07 Plan of Treatment Reminders Order Date Submit Date Provider Last Modified By Organization Details Last Modified Time Details Appointments None recorded. Lab rapid SARS CoV 2 Ag, QL IA, respiratory specimen [address] [facility], [address] [place], [id number] 5 16:05:15 rapid flu (A+B) [address] [facility], [address] [place], [address] 5 16:05:33 Referral None recorded. Procedures None recorded. Surgeries None recorded. Imaging None recorded. Medication Orders ipratropium 0.5 mg-albutero l 3 mg (2.5 mg base)/3 mL nebulizatio n soln 2024 025 [email or web address] [facility][id number], [address] [facility], [place], [address], 5 11:32:04 Patient TargetsNo targets recorded. Patient InstructionsNo instructions [...] t Available Vitals Date Recorded Body temperature Heart rate Oxygen saturation Body weight Body height Respiratory rate Systolic And Diastolic Provider Name and Address Organization Details Last Updated DateTime 5 99.2 [degF] 88 /min 99 % 574708. 696 g 162.56 cm 18 /min 124/74 mm[Hg] Not Available [employer] - production 5 11:21:08 Social History None recorded. Functional Status None recorded. Mental Status None recorded. Family History Nothing Reported. Medical History No medical history recorded. Gynecological HistoryNo gynecological history recorded. Obstetrics History GPAL:G 0 P 0 0 0 0 Past Encounters Encounter ID Performer Location Encounter Start Date Encounter Closed Date Diagnosis/Indication Diagnosis SNOMED-CT Code Diagnosis ICD10 Code Diagnosis IMO Codes Diagnosis Note [id number] GURVINDER CUTLER MD [facility] ED Medical [address] [address] 12/01/2024 19:23:27 12/01/2024 22:28:06 Headache 45737203 R51.9 [id number] Evaluation in the field was performed by my cost and sales record supervisor colleague, as noted above, I provided real-time [...] left dorsum near dorsalis pedis.Yelena re pain (10/30), difficulty bearing weight.Den ies trauma or repetitive [...] very swollen, or unable to bear weight [id number] Breanna Calix MD [facility] ED Medical [address] [address] 12/11/2024 11:21:01 12/12/2024 23:56:51 Viral upper respiratory tract infection 737384756 J06.9 [id number] Common cold 87437439 J00 79947 Health Concerns Section Related Observation LastModified by Organization Detai ls LastModified Time None Recorded Concern Status LastModified by Organization Details LastModified Time None Recorded Payers Encounter Date Sequence Insurance Name Policy Number Policy Naranjo Covered Member ID Naranjo Member ID Guarantor Name 12/11/2024 1 [facility] - DOS ON OR AFTER 2022 - DUAL ELIGIBLE - RETIREMENT OPTIONS AND ONE CARE (MEDICARE REPLACEMENT/ADV ANTAGE - HMO) Nelly Lanier [id number] Nelly Lanier Notes Date Note Type Note Provider Name and Address Organization Details Recorded Time 12/11/2024 text/html CRC Nurse Triage Notes (Hattie [...] Asthma, Chronic Pain, Osteoarthritis PMH Reviewed at 12/11/2024 Allergies Reviewed at 12/11/2024:44 Comments: 39 y.o [...] signs of when to seek emergency care. Translational Specialist Organization Information for [employer] Name: [email or web address] Address: [address] [place] [address], Relief Man: Randal Campos MD CLIA No.: [id number] Translational Specialist POC Test Results from [employer] [facility] Rapid COVID antigen (11:12:45) COVID: - Attachments uploaded as part of this test result can be found under Documents section. Rapid influenza antigen (11:12:47) Flu: - Blood Glucose Measurement (11:17:12) Blood Glucose: 119mg/dL Attachments uploaded as part of this test result can be found under Documents section. .................... .................... .................... .................... .................... .................... .................... . Translational Specialist Note From [employer] [facility]: [facility] responds to the listed address for a 39 yof w/ a c/c of URI symptoms. Upon arrival on scene, pt answers the door and invites [facility] inside. She is not in acute distress, [...] to leave for an emergency trip to [place] and wants to make sure she does [...] smooth and coordinated manner. 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 Ddx: COVID/flu, URI, asthma exacerbation [facility] obtains vital signs and pt is [...] CMS is intact in all four extremities. [facility] [place] [facility] [place] the above and [facility] [place] [facility] to administer one duoneb. [facility] administers one duoneb via nebulizer pipe at 8lpm O2. Pt continues to be animated and talkative w/ the pipe in her mouth and [facility] needs to consistently redirect pt to concentrate on the treatment. Lung sounds are reassessed post treatment and they are clear to auscultation throughout. Pt endorses feeling better w/ decreased respiratory effort and thanks [facility] for the visit. [facility] encourages pt to continue her supportive care for her symptoms as best she can while traveling. [facility] is clear. Report completed by JAQUELINE Watters [id number]. [facility] [place] Orders: rapid SARS CoV 2 Ag, QL IA, respiratory specimen: Performed rapid flu (A+B): Performed [facility] [place] Medication Orders: ipratropium 0.5 mg-albuterol 3 mg (2.5 mg base)/3 mL nebulization soln: Performed .................... .................... .................... .................... .................... .................... .................... . [facility] [place] Consulted: Breanna Calix .................... .................... .................... .................... .................... .................... .................... . Disposition: Fulfilled Breanna Calix MD [address] [facility],[address], [place], [address], [place] [employer] 12/11/2024 15:55:28 OBGyn Episode No OBEpisode recorded.
--- OUTSIDE RECORDS SUMMARY | 2025-03-08 18:08 | XMS_ITS | Encounter Summary ---
Author Organization [employer] Address [address] [place] [address] Care Team Providers Care Crime Lab Technician Name Role Phone Name, Tucker PEARSON Primary Care Provider [phone] Malik Quiles Unavailable Unavailable Reason for Visit * Reason Comments Med Refill Encounter Details Date Type Department Care Team ([facility] st Contact Info) Description 07/08/2022 Refill [facility] [address] [place], [place] [phone] Name, MD Tucker [address] [place], [place] [phone] Social History Tobacco Use Types Packs/Day Years [...] on filedocumented in this encounter Care Teams Crime Lab Technician Relationship Specialty Start Date End Date Name, MD Tucker [address] [place] [address] [phone] PCP - General Family Medicine 08/13/15 Malik Quiles [address] [place] [address] Dental Steno Typist 05/12/24 documented as of this encounter
--- OUTSIDE RECORDS SUMMARY | 2025-03-08 18:08 | XMS_ITS | Encounter Summary ---
Author Organization [employer] Address [address] [facility] [address] [place] [address] Care Team Providers Care Wire Chief Name Role Phone Name, Tucker PEARSON Primary Care Provider [phone] Malik Quiles Unavailable Unavailable Reason for Visit * Reason Comments Med Change Request Encounter Details Date Type Department Care Team ([facility] Contact Info) Description 03/25/2024 Refill [facility] [address] [place], [place] [phone] Name, MD Tucker [address] [place] [address] Social History Tobacco Use Types Packs/Day Years [...] documented as of this encounter Care Teams Wire Chief Relationship Specialty Start Date End Date Name, MD Tucker [address] [place] [address] PCP - General Family Medicine 08/13/15 Malik Quiles [address] [place] [address] Dental Disability Liaison Officer 05/12/24 documented as of this encounter
--- OUTSIDE RECORDS SUMMARY | 2025-03-08 18:08 | XMS_ITS | Encounter Summary ---
Author Organization [employer] Address [address] [place] [address] [address] [place] [address] Care Team Providers Care Senior Financial Consultant Name Role Phone Name, Tucker PEARSON Primary Care Provider [phone] Malik Quiles Unavailable Unavailable Encounter Details Date Type Department Care Team (Late st Contact Info) Description 10/13/2022 Orders Only [facility] [address] [place] [address] Geovanna Bradshaw LPN Social History Tobacco Use [...] filedocumented in this encounter Care Teams Senior Financial Consultant Relationship Specialty Start Date End Date Name, MD Tucker [address] [place] [address] PCP - General Family Medicine 08/13/15 Malik Quiles [address] [place] [address] Dental Coupler 05/12/24 documented as of this encounter
--- OUTSIDE RECORDS SUMMARY | 2025-03-08 18:08 | XMS_ITS | Encounter Summary ---
Author Organization [employer] Address [address] [place] [address] Care Team Providers Care Managed Care Director Name Role Phone Name, Tucker PEARSON Primary Care Provider [phone] Malik Quiles Unavailable Unavailable Encounter Details Date Type Department Care Team (Late st Contact Info) Description 05/24/2024 Orders Only [facility] [address] [place], [place] [phone] ProviderZahraa MD Social History Tobacco Use Types [...] documented as of this encounter Care Teams Managed Care Director Relationship Specialty Start Date End Date Name, MD Tucker [address] [place] [address] PCP - General Family Medicine 08/13/15 Malik Quiles [address] [place] [address] Dental Fluid Power Mechanic 05/12/24 documented as of this encounter
--- OUTSIDE RECORDS SUMMARY | 2025-03-08 18:08 | XMS_ITS | Data Portability ---
Author Organization [employer], [facility] Address [address] [place] [address] Care Team Providers Care Agricultural Engineering Technologist Name Role Phone HIM CCA OTHER Unavailable Primary Care Provider Assessment Encounter Date Assessment Date Assessment LastModified by Organization Details LastModified Time 02/03/2024 02/03/2024 I provided real -time medical direction via phone for this encounter and was available for additional phone-based assistance as needed. I have reviewed and agree with the Assessment and Plan as documented by the Patient Safety Coordinator. Patient given the opportunity to ask questions. Our service contacted for an assessment of: Chronic right back pain As per above, patient with hx of chronic right-sided back pain. No new or worsening red S&S. No new bowel/bladder symptoms. No new gait abnl. No new neurological signs, symptoms or deficits. Per jewel stripper on the scene, VSS, non-toxic. Neuro grossly [...] Assessment and Plan as documented by the Patient Safety Coordinator. Patient given the opportunity to ask questions. Our service contacted for an assessment of: Viral URI symptoms As per above, patient with approximately several days of viral URI symptoms. Denies fever or chills. Denies chest pain, shortness of breath, dyspnea on exertion. Positive nasal congestion and dry cough. Per jewel stripper on the scene, vital signs are stable and patient is afebrile. + wheezing heard on exam. COVID and Flu are both negative. No increased work of breathing and no distress. Impression: Common cold and viral URI Plan: Continue with [id number]-epbgopb medications to control symptoms. Duoneb times one [...] QL IA, respiratory specimen [address] [facility], [address] [place] [address], [id number] 16:05:15 rapid flu (A+B) [address] [facility], [address] [place] [address], [id number] 16:05:33 BMP, serum or plasma [address] [facility], [address] [place] [address], [id number] 21:48:55 rapid SARS CoV 2 Ag, QL IA, respiratory specimen [address] [facility], [address] [place] [address], [address] 21:48:56 rapid flu (A+B) 2024 025 [facility], [address] [place] [address], [id number] 5 21:48:56 rapid SARS CoV 2 Ag, QL IA, respiratory specimen 2023 024 [facility], [address] [place] [address], [address] 4 01:47:53 rapid flu (A+B) 2023 024 [facility], [address] [place] [address], [address] 4 01:47:37 urinalysis, dipstick 2023 024 [facility], [address] [place] [address], [address] 4 19:05:01 Referral None recorded. Procedures None recorded. Surgeries None recorded. Imaging None recorded. Medication Orders ipratropium 0.5 mg-albutero l 3 mg (2.5 mg base)/3 mL nebulizatio n soln 2024 025 [facility] [address] [place], [address], 5 11:32:04 lactated Ringers intravenous solution 2024 025 [facility]/Pharmacy #2071, [address] [place], [address], 5 19:55:57 ketorolac 15 mg/mL injection solution 2024 025 [facility]/Pharmacy #2071, [address] [place], [address], 5 19:55:57 metoclopram sarah 5 mg/mL injection solution 2024 025 [facility]/Pharmacy #2071, [address] [place], [address], 5 19:55:57 benzonatate 100 mg capsule 2023 024 [facility] [address] [place], [address], 4 11:40:51 ketorolac 30 mg/mL injection solution 2023 024 [facility] [address] [place], [address], 4 13:04:11 prednisone 20 [address] [facility]/Pharmacy #2071, [address] [place], [address], 4 13:04:11 prednisone 20 mg tablet 2023 024 [facility] [address] [place], [address], 4 14:36:30 ketorolac 30 mg/mL (1 mL) injection solution 2023 [email or web address] [facility] [address] [place], [address], 4 10:36:09 Patient TargetsNo targets recorded. Patient [...] active Not Available Not Available Not [facility] Wixela Inhub 250 mcg-50 mcg/dose powder for [...] temperature Body height Heart rate Oxygen saturation Body weight Respiratory rate Systolic And Diastolic Provider Name and Address Organization Details Last Updated DateTime 5 97.8 [degF] 165.1 cm 74 /min 98 % 272425. 88 g 16 /min 126/88 mm[Hg] Not Available [employer] - production 5 19:23:32 Date Recorded Body temperature Heart rate Oxygen saturation Body weight Body height Respiratory rate Systolic And Diastolic Provider Name and Address Organization Details Last Updated DateTime 5 99.2 [degF] 88 /min 99 % 529233. 696 g 162.56 cm 18 /min 124/74 mm[Hg] Not Available [employer] - production 5 11:21:08 Date Recorded Oxygen saturation Respiratory rate Body temperature Body weight Heart rate Body height Systolic And Diastolic Provider Name and Address Organization Details Last Updated DateTime 4 98 % 14 /min 97.6 [degF] 451215. 6 g 92 /min 152.4 cm 145/80 mm[Hg] Not Available [employer] - production 4 10:04:03 Date Recorded Body temperature Respiratory rate Oxygen saturation Body height Heart rate Body weight Systolic And Diastolic Provider Name and Address Organization Details Last Updated DateTime 4 98 [degF] 14 /min 98 % 157.48 cm 71 /min 879819. 6 g 128/86 mm[Hg] Not Available [employer] - production 4 12:46:24 Date Recorded Oxygen saturation Respiratory rate Body height Heart rate Body temperature Body weight Systolic And Diastolic Provider Name and Address Organization Details Last Updated DateTime 4 99 % 16 /min 162.56 cm 82 /min 97.6 [degF] 466356. 128 g 107/76 mm[Hg] Not Available [employer] - production 4 11:26:02 Social History None [...] ICD10 Code Diagnosis IMO Codes Diagnosis Note [id number] Carl Pierson MD Main - [address] [phone] 01/23/2023 15:48:21 01/27/2023 09:42:22 Sciatica [id number] M54.31 Patient reports acute-on-c hronic pain from sciatica. No new features of the pain. No history or exam findings to suggest cord compromise or secondary back pain. Plan for pain control and continued outpatient treatment. [id number] Humaira Marquez MD Main - [address] [address] 03/28/2023 19:02:25 03/29/2023 15:28:00 Exacerbation of intermittent asthma [id number] J45.21 I provided real -time medical direction via phone for this encounter, and was available for additional phone based assistance as needed. I have reviewed and agree with the Assessment and Plan as documented by the Patient Safety Coordinator. Patient given the opportunit y to ask questions. 37 yo w/ asthma. treated for exacerbati on with azithro around the , completed course. Sx recrudesce d 1-2d ago. not expectorat ing sputum, hadn't been taking nebs or controller inhalers. Discussed appropriat e use of inhalers and nebulizers . Will prescribe 5d course prednisone and fexofenadi ne for antihistam ine. [id number] EPIFANIO CUTLER MD Main - [facility] [address] [place] [phone] 09/26/2023 18:34:39 09/28/2023 14:31:54 Acute COVID-19 [id number] U07.1 Evaluation in the field was performed by my jewel stripper colleague, as noted above, I provided real-time [...] to tolerate PO or any other concerns. [id number] Breanna Calix MD Main - [facility] [address] [place] [address] 09/30/2023 17:41:35 09/30/2023 19:48:09 Right side sciatica [id number] 49803 M54.31 [id number] Breanna Calix MD Main - [facility] [address] [place] [phone] 02/03/2024 10:03:59 02/03/2024 14:20:43 Chronic low back pain 278077821 M54.50 [id number] Jocelyne Bonner MD Main - [facility] [address] [place] [address] 02/04/2024 12:46:20 02/04/2024 17:20:33 Chronic low back pain 099583498 M54.50 As noted, we were called to see this patient regarding concerns of back pain. Evaluation in the field was performed by my jewel stripper colleague, as noted above, I provided real-time [...] changes to consciousn ess, chest pain, dyspnea. [id number] Jamil Arboleda MD Main - [facility] [address] [place] [phone] 03/06/2024 11:26:00 03/07/2024 11:52:24 Viral upper respiratory tract infection [id number] J06.9 Patient with symptoms of URI; coughing, runny nose, hx of asthma though no current wheezing. COVID/flu negative. No red flag signs on exam. No fever. Satting well on RA. Continue supportive care. Will rx Tessalong pearles. Discussed red flag signs and symptoms to present for higher level of care. [id number] EPIFANIO CUTLER MD Main-inst [facility] Medical [facility] [address] [place] [address] 12/01/2024 19:23:27 12/01/2024 22:28:06 Headache 53321009 R51.9 [id number] Evaluation in the field was performed by my jewel stripper colleague, as noted above, I provided real-time [...] very swollen, or unable to bear weight [id number] Breanna Calix MD Main-inst ED Medical [address] [phone] 12/11/2024 11:21:01 12/12/2024 23:56:51 Viral upper respiratory tract infection [id number] J06.9 [id number] Common cold 89907069 J00 02275 Health Concerns Section Related Observation LastModified by Organization Detai ls LastModified Time None Recorded Concern Status LastModified by Organization Details LastModified Time None Recorded Advance Directives Directive None Recorded Payers Insurance Date Sequence Insurance Name Policy Number Policy Naranjo Covered Member ID Naranjo Member ID Guarantor Name 12/11/2024 1 [facility] - DOS ON OR AFTER 2022 - DUAL ELIGIBLE - [facility] OPTIONS AND ONE CARE (MEDICARE REPLACEMENT/ADV ANTAGE - HMO) Nelly Lanier [id number] Nelly Yannick Notes Date Note Type Note Provider Name and Address Organization Details Recorded Time 02/03/2024 text/html CRC Nurse Triage Notes (Angella Mason): Chief Complaints: Joint pain/swelling PMH: COPD/Asthma, Rheumatoid Arthritis, Fibromyalgia Pain Assessment: Level 10 out of 10 Comments: Program And Research Coordinator verified the member's name//address and phone number. [...] s/s and seek emergency treatment if needed Patient Safety Coordinator Organization Information for Braydon Walker [employer] Legal Name: [facility] Address: [address] [place] [address], [place] [address], Circus Trainer: Norman Villalta MD CLIA No.: [id number] Patient Safety Coordinator POC Test Results from Braydon Walker Urine Dipstick (09:18:23) Urine leukocytes: - JUVENTINO Urine nitrites: - NIT Urine urobilinogen: 0.2 URO Urine protein: - PRO Urine pH: 5.0 pH Urine blood: - BLO Urine specific gravity: 1.010 SG Urine ketones: - KET Urine bilirubin: - AILYN Urine glucose: - GLU .................... .................... .................... .................... .................... .................... .................... . Patient Safety Coordinator Note From Braydon Walker: Patient alert [...] .................... .................... .................... .................... . Disposition: Chel Breanna Calix MD [address] [facility],[address], [place], [address], [facility] 02/03/2024 10:56:48 02/04/2024 text/html CRC Nurse Triage [...] .................... .................... .................... .................... .................... .................... . Patient Safety Coordinator Note From Braydon Walker: Patient alert [...] .................... . Disposition: Chel Bonner MD [address] [facility],[address], [place], [address], [employer] 02/04/2024 14:36:32 03/06/2024 text/html ROS as noted in the [facility] CRC Nurse Triage Notes (Levon Correa - EDGARDO): Reason For Request: Pt reporting severe shortness [...] PMH: COPD/Asthma, Rheumatoid Arthritis, Fibromyalgia, Asthma Comments: Program And Research Coordinator verified the patient's name//address and phone number. [...] emergency treatment if needed -Nicholas Correa RN Patient Safety Coordinator Organization Information for Joce Alicea [employer] Legal Name: [facility] Address: [address] [place] [address], Circus Trainer: Norman Villalta MD [facility] No.: [id number] Patient Safety Coordinator POC Test Results from [employer] Joce Kasper [employer] Rapid COVID antigen (11:25:25) COVID: - Rapid influenza antigen (11:25:26) Flu: - .................... .................... .................... .................... .................... .................... .................... . Patient Safety Coordinator Note From Joce Alicea: This 38-year-old [...] .................... .................... .................... .................... . Disposition: Chel Jamil Arboleda MD [address] [facility],[address], [place], [address], [employer] 03/06/2024 12:28:18 12/01/2024 text/html ROS as noted [...] signs of when to seek emergency care. Patient Safety Coordinator Organization Information for Jael Loz[employer] Legal Name: [employer] Address: [address] [place] [address], Circus Trainer: Randal Campos MD CLIA No.: [id number] Patient Safety Coordinator POC Test Results from Jael Lozano iSTAT Chem8+ (21:35:17) Na: 139mEq/L K: 3.6mEq/L Cl: 104mEq/L iCa: 0.94mmol/L TCO2: 23mmol/L Glu: 109mg/dL BUN: 14mg/dL Crea: 0.7mg/dL Hct: 37% Hb: 12.6g/dL Ammol/L Cartridge Number: --- Rapid COVID antigen (21:38:35) COVID: - Rapid influenza antigen (21:38:35) Flu: - .................... .................... .................... .................... .................... .................... .................... . Patient Safety Coordinator Note From Jael Lozano: SC2 dispatched 122 [...] lower extremities show no edema. Pt left automatic bow maker machine tender to the touch. [facility] [...] .................... .................... .................... .................... . Disposition: Fulfilled EPIFANIO CUTLER MD [address] [facility],[address], [place], [address], [place] [facility] 12/01/2024 21:46:21 12/11/2024 text/html CRC Nurse Triage [...] signs of when to seek emergency care. Patient Safety Coordinator Organization Information for [employer] Legal Name: [employer] Address: [address] [place] [address], Circus Trainer: Randal Campos MD CLIA No.: [id number] Patient Safety Coordinator POC Test Results from [employer] Rapid COVID antigen (11:12:45) COVID: - Attachments uploaded as part of this test result can be found under Documents section. Rapid influenza antigen (11:12:47) Flu: - Blood Glucose Measurement (11:17:12) Blood Glucose: 119mg/dL Attachments uploaded as part of this test result can be found under Documents section. .................... .................... .................... .................... .................... .................... .................... . Patient Safety Coordinator Note From Turner Watters: SC6 responds to the listed address for a 39 yof w/ a c/c of URI symptoms. Upon arrival on scene, pt answers the door and invites [facility] inside. She is not in acute [...] she is not bleeding anywhere. Pt tells [facility] she has been experiencing common cold s/s [...] smooth and coordinated manner. 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 Ddx: COVID/flu, URI, asthma exacerbation [facility] obtains vital signs and pt is [...] CMS is intact in all four extremities. [facility] contacts [facility] and discusses the above and [facility] agrees w/ [facility] to administer one duoneb. [facility] administers one duoneb via nebulizer pipe at 8lpm O2. Pt continues to be animated and talkative w/ the pipe in her mouth and [facility] needs to consistently redirect pt to concentrate on the treatment. Lung sounds are reassessed post treatment and they are clear to auscultation throughout. Pt endorses feeling better w/ decreased respiratory effort and thanks [facility] for the visit. [facility] encourages pt to continue her supportive care for her symptoms as best she can while traveling. [facility] is clear. Report completed by JAQUELINE Watters [id number]. [facility] Lab Orders: [...] . Disposition: Fulfilled Breanna Calix MD [address] [facility],[address], [place], [address], [facility] - [facility] 12/11/2024 15:55:28 OBGyn Episode No OBEpisode recorded.
--- OUTSIDE RECORDS SUMMARY | 2025-03-08 18:08 | XMS_ITS | Encounter Summary ---
Author Organization [employer] Address [address] [facility] [address] [place] [address] Care Team Providers Care Coat Checker Name Role Phone Name, Tcuker PEARSON Primary Care Provider [phone] Malik Quiles Unavailable Unavailable Encounter Details Date [...] on filedocumented in this encounter Care Teams Coat Checker Relationship Specialty Start Date End Date Name, MD Tucker [address] [place] [address] PCP - General Family Medicine 08/13/15 Malik Quiles [address] [place] [address] Dental Barrel Filler 05/12/24 documented as of this encounter
--- OUTSIDE RECORDS SUMMARY | 2025-03-08 18:08 | XMS_ITS | Clinical Summary ---
Author Organization [employer] Address [address] [facility] 7t [place] [address] Care Team Providers Care Furnace And Wash Equipment Operator Name Role Phone Name, Tucker PEARSON Primary Care Provider [phone] Malik Quiles Unavailable Unavailable Allergies Active Allergy Reactions Criticality Noted Date Comments Lactose 10/21/2012 Medications zolpidem (Ambien) 10 MG tablet Take 10 mg by mouth if needed at bedtime. 3 Active sertraline (Zoloft) 100 MG tablet TAKE 2 TABLETS BY MOUTH EVERY DAY IN THE MORNING 3 Active LORazepam (Ativan) 1 MG tablet Take 1 mg by mouth if needed each day. 3 Active Diclofenac Sodium 1 % gel Apply 2 grams once a day to the affected skin 100 g 1 4 Active nystatin (Mycostatin) cream APPLY TOPICALLY TO THE AFFECTED AREA TWICE A DAY 15 g 1 4 Active gabapentin (Neurontin) 400 MG capsule TAKE 1 CAPSULE (400 MG) BY MOUTH 2 TIMES DAILY. 60 capsule 4 Active albuterol 108 (90 Base) MCG/ACT inhaler Inhale 2 puffs every 6 (six) hours if needed for wheezing. 18 g 11 4 Active Diclofenac Sodium 1 % gel Apply thin layer by topical route (quantity as directed on package insert) to affected area of pain 3 times daily as needed. 50 g 3 4 Active ferrous sulfate 324 (65 Fe) MG EC tablet Take 1 tablet (324 mg) by mouth Once per day. 90 tablet 1 4 Active Wixela Inhub 500-50 MCG/ACT aerosol powder TAKE 1 PUFF BY MOUTH TWICE A DAY 60 each 1 Active albuterol 108 (90 Base) MCG/ACT inhaler INHALE 2 PUFFS BY MOUTH EVERY 4 TO 6 HOURS IF NEEDED 8.5 g 11 Active Nebulizers misc 1 kit Every 4-6 hours as needed (for shortness of breath and wheezing). Active betamethasone valerate (Valisone) 0.1 % cream APPLY BY TOPICAL ROUTE A THIN LAYER TO THE AFFECTED AREA(S) 180 g 3 5 Active fluticasone (Flonase) 50 MCG/ACT nasal sprayIndication s:Cough in adult ADMINISTER 1 SPRAY INTO EACH NOSTRIL ONCE PER DAY. SHAKE GENTLY. BEFORE FIRST USE, PRIME PUMP. AFTER USE, CLEAN TIP AND REPLACE CAP. 32 mL 1 Active Tirzepatide-Carmelo ght Management (Zepbound) 12.5 MG/0.5ML solution auto-injector Inject 0.5 mL (12.5 mg) under the skin 1 (one) time per week. 2 mL 3 Active omeprazole (PriLOSEC) [address] capsule TAKE 1 CAPSULE (20 MG) BY MOUTH BEFORE BREAKFAST 90 capsule 1 Active Active Problems Problem Noted Date Diagnosed Date RLS (restless legs syndrome) 01/28/2024 Low ferritin 01/26/2023 01/26/2023 Acid reflux 01/26/2023 01/26/2023 Severe obesity (BMI >= 40) (CMS/FORMERLY [facility]) 01/26/2023 01/26/2023 History of gastric bypass 07/04/2022 [...] Encounters Date Type Department Care Team Description 02/23/2025 Telephone [facility] [address] [place] [phone] Tucker Omalley MD Prior Authorization 01/28/2025 Orders Only [facility] [address] [place] [phone] Tucker Omalley MD 01/28/2025 Refill [facility] [address] [place] [phone] Tucker Omalley MD 01/19/2025 Telephone [facility] [address] [place] [phone] Tucker Omalley MD Medication Question 01/14/2025 Refill [facility] [address] [place] [address] [phone] Kriss Bhatti NP Cough in adult 12/28/2024 10:30 AM EDT Office Visit [facility] [address] [place] [address] [phone] NameTucker MD Severe obesity (BMI >= 40) (CMS/FORMERLY [facility]) (FORMER[facility]) (Primary Dx); Rash; Seborrheic keratosis; Anemia, unspecified type 12/28/2024 Travel 12/27/2024 Telephone [facility] [address] [place] [phone] Tar Momin MA chart prep 12/21/2024 Travel 12/17/2024 Refill [facility] [address] [place] [address] [phone] NameTucker MD from Last 3 Months Immunizations Immunization Administration Dates Next Due Hep B, adult 05/10/2019,08/17/2018 Influenza Injectable Quadriv alant Preservative Free IIV4 MDCK 12/19/2022,05/02/2022,02/25/2021 Influenza injectable quadriv alent IIV4 with preservative 12/23/2017 Influenza injectable quadriv alent preservative free 03/17/2019 Influenza, IIV3, injectable 11/30/2014,1 05/02/2013,01/24/2013,02/10,01/05/2010,02/27/2009 Influenza, seasonal, injecta ble, preservative free 12/11/2023,01/18/2016 Novel [id number], preservative-free 02/27/2009 Pfizer Covid-19 Vaccine 12+ 01/28/2024 [...] 04/21/2024, 0 05/28/2018, 06/11/2017, Additional history exists COVID-19 Vaccine ( season) 2024 01/28/2024, 04/01/2021, 08/21/2020, Additional history exists Influenza Vaccine (#1) 2024 , 12/19/2022, 05/02/2022, Additional history exists Depression Screening 01/27/2025 01/28/2024, 01/28/20 24 SDOH Screening 01/27/2025 01/28/2024 Dental X-Ray: Bitewings 04/22/2025 04/21/19, 03/24/2024, 12/14/2018, Additional history exists Disability Screening 12/21/2025 12/21/2024 Alcohol/Substance Use Screening 12/28/2025 12/28/2024 Tobacco Screening 12/28/2025 12/28/2024 DTaP/Tdap/Td Vaccines (3 - Td or Tdap) 02/18/2026 02/19/2016, 05/25/2012 Mammogram 01/28/2027 01/28/2025, 12/23, 01/21/2024 Dental X-Ray: Full Mouth 04/22/2027 04/21/2024, 07/21 Cervical Cancer Screening 11/26/2027 HPV/Cotest 11/26/2027 Pap Smear 11/26/2027 11/25/2022 Lipid Panel 12/15/2028 12/16/2023, 01/22, 06/12/2021 Zoster Vaccines (1 of 2) 2034 RSV Patients and Patients Aged 60 years or older (1 - 1-dose 75+ series) 09/12/2059 Pneumococcal Vaccine: Pediatrics (0 to 5 Years) and At-Risk Patients (6 to 49) Years Completed 12/11/2023, 08/17/2012 HIB Vaccines Aged Out No longer eligi [...] Procedure Name Priority Date/Time Associated Diagnosis Comments BI MAMMOGRAM SCREENING TOMOSYNTHESIS BILATERAL Routine 01/28/2025 8:00 AM EST FERRITIN Routine 12/30/2024 9:12 AM EDT Anemia, unspecified type CBC WITH AUTO DIFFERENTIAL Routine 12/30/2024 9:12 AM EDT Anemia, unspecified type PROPHYLAXIS - ADULT Routine 04/21/2024 1 :00 PM EST INTRAORAL - COMPLETE SERIES OF RADIOGRAPHIC IMAGES Routine 04/21/2024 1:00 PM EST PERIODIC ORAL EVALUATION - ESTABLISHED PATIENT Routine 04/21/2024 1:00 PM EST LIPID PANEL, STANDARD Routine 12/16/2023 9:46 AM EDT Morbid obesity (CMS/HCC) HM PAP/HPV Routine 11/25/2022 2:19 PM EDT from Last 3 Months or Most Recently Relevant to Health Maintenance Results * BI Mammogram Screening Tomosynthesis Bilateral (01/28/2025 8:00 AM EST) Anatomical Region Laterality Modality Breast Bilateral Mammography 01/28/2025 8:00 AM EST Narrative 01/30/2025 3:42 PM EST [address] [place] [address] Mammography Report Signed Patient: Nelly Lanier MR#: [id number] 20 : 1985 Acct:[id number] Age/Sex: 39 / F ADM Date: 01/28/25 Loc: HO.MAMMO Attending Dr: Tucker Omalley MD Ordering Physician: Tucker Omalley MD Results: 0Incomplet e- Need Additional Imaging Evaluation Date of Service: 01/28/25 Follow Up: Additional Imagi ng Procedure(s): MM tomosynthesis screening BI Accession Number(s): [id number] cc: Tucker Omalley MD Reason For Exam: SCREENING EXAMINATION: MM SCREENING DIGITAL BREAST TOMOSYNTHESIS, BILATERAL CLINICAL INFORMATION: Screening. Asymptomatic. COMPARISON: Mammography: Comparison is made with available priors TECHNIQUE: Digital breast mammography with tomosynthesis is performed in both the craniocaudal and mediolateral oblique views along with computer-aided detection (CAD). FINDINGS: There are scattered areas of fibroglandular density. Right: Focal asymmetry lower central to slightly inner breast middle depth. No suspicious calcifications or other abnormal finding. Right: There are no significant masses, abnormal calcifications, or other abnormalities. MM/MM tomosynthesis screening BI IMPRESSION: Additional imaging is recommended ASSESSMENT: BI-RADS Category 0: Incomplete - Need additional Imaging Evaluation RECOMMENDATION: 1. Additional views of the right breast. 2. Targeted ultrasound if warranted after review of the additional views. 3. Radiology department staff will contact the patient for additional imaging. Additional Imaging required Electronically signed by: Kim Perez DO 01/30/2025 03:39 PM EST Dictated By: Kim Perez DO Signed By: <Electronically signed by Kim Perez DO in OV> 01/30/25 1539 DD/ 0800 TD/TT: 01/28/25 0817 Stoker Installer: Procedure Note Chasity, Image - 01/30/2025 [facility] [address] [place] [address] Mammography Report Signed Patient: Dashawn Lanier#: [id number] 20 : 1985Acct:[id number] Age/Sex: 39 / FADM Date: 01/28/25 Loc: HO.MAMMO Attending Dr: Tucker Omalley MD Ordering Physician: Tucker Omalley MDResults: 0Incomplet e- Need Additional Imaging Evaluation Date of Service: 01/28/25Follow Up: Additional Imagi ng Procedure(s): MM tomosynthesis screening BI Accession Number(s): [id number] cc: Tucker Omalley MD Reason For Exam: SCREENING EXAMINATION: MM SCREENING DIGITAL BREAST TOMOSYNTHESIS, BILATERAL CLINICAL INFORMATION: Screening. Asymptomatic. COMPARISON: Mammography: Comparison is made with available priors TECHNIQUE: Digital breast mammography with tomosynthesis is performed in both the craniocaudal and mediolateral oblique views along with computer-aided detection (CAD). FINDINGS: There are scattered areas of fibroglandular density. Right: Focal asymmetry lower central to slightly inner breast middle depth. No suspicious calcifications or other abnormal finding. Right: There are no significant masses, abnormal calcifications, or other abnormalities. MM/MM tomosynthesis screening BI IMPRESSION: Additional imaging is recommended ASSESSMENT: BI-RADS Category 0: Incomplete - Need additional Imaging Evaluation RECOMMENDATION: 1. Additional views of the right breast. 2. Targeted ultrasound if warranted after review of the additional views. 3. Radiology department staff will contact the patient for additional imaging. Additional Imaging required Electronically signed by: Kim Perez DO 01/30/2025 03:39 PM EST Dictated By: Kim Perez DO Signed By: <Electronically signed by Kim Perez DO in OV> 01/30/25 1539 DD/ 0800 TD/TT: 01/28/25 0817 Stoker Installer: us Tucker Name MD ALVARENGA BI PROCEDURES Edited Result - Final * (ABNORMAL) CBC auto differential (12/30/2024 9:12 AM EDT) White Blood Count 6.9 4.8 - 10.8 X10*3/uL [facility] Red Blood Count 4.96 4.20 - 5.50 X10*6/uL [facility] Hemoglobin 12.1 12.0 - 16.0 g/dl [facility] Hematocrit 38.3 37.0 - 47.0 % [facility] Mean Corpuscular Volume 77.2(L) 80.0 - 98.0 fL [facility] Mean Corpuscular Hemoglobin 24.4(L) 27.0 - 33.0 pg [facility] Mean Corpuscular HGB Conc 31.6 31.0 - 35.0 g/dl [facility] Red Cell Distribution Width 17.2(H) 11.0 - 16.0 % [facility] Platelet Count 176 160 - 400 X10*3/uL [facility] Neutrophils Percent Auto 73.1(H) 45 - 73 % [facility] Imm Gran Pct Auto 0.4 0.0 - 0.4 % [facility] Lymphocytes Percent Auto 16.2(L) 20 - 40 % [facility] Monocytes Percent Auto 6.8 2 - 11 % [facility] Eosinophils Percent Auto 3.2 0 - 4 % [facility] Basophils Percent Auto 0.3 0 - 2 % [facility] NRBC Pct Auto 0.0 0.0 - 0.2 /100WBC [facility] Neutrophils Absolute Auto 5.0 2.0 - 8.3 x10*3/uL [facility] Imm Gran Abs Auto 0.03 0.00 - 0.03 X10*3/uL [facility] Lymphocytes Absolute Auto 1.1(L) 1.2 - 4.9 X10*3/uL [facility] Monocytes Absolute Auto 0.5 0.1 - 1.2 X10*3/uL [facility] Eosinophils Absolute Auto 0.2 0.0 - 0.4 X10*3/uL [facility] Basophils Absolute Auto 0.0 0.0 - 0.2 X10*3/uL [facility] NRBC Abs Auto 0.000 0.0 - 0.012 X10*3/uL [facility] Blood Venous blood specimen / Unknown 12/30/2024 9:12 AM EDT 12/30/2024 11:16 AM EDT us Tucker Omalley MD LAB BLOOD ORDERABLES Final Resul t Performing Organization Address City/[facility]/ZIP Co de Phone Number [facility] [address] [place] [phone] * Ferritin (12/30/2024 9:12 AM EDT) Ferritin 12 10 - 250 ng/mL [facility] Blood Venous blood specimen / Unknown 12/30/2024 9:12 AM EDT 12/30/2024 11:32 AM EDT us Tucker Omalley MD LAB BLOOD ORDERABLES Final Resul t Performing Organization Address [facility]/ZIP Co de Phone Number [facility] [address] [place] [address] [phone] * (ABNORMAL) Lipid Panel, Standard (12/16/2023 9:46 AM EDT) Triglycerides 92 <150 mg/dL [facility] Comment:Desirable Triglyceri de: less than 150 mg/dLBorderline High Triglyceride 150-199 mg/dLHigh Triglyceride: 200-499 mg/dLVery High Triglyceride: greater than or equal to 5OO mg/dL Cholesterol 175 <200 mg/dL [facility] Comment:Desirable Cholestero l: less than 200 mg/dLBorderline High Cholesterol: 200-239 mg/dLHigh Cholesterol: greater than 239 mg/dL LDL Cholesterol Calculated 101(H) <100 mg/dL [facility] Comment:Desirable LDL: less than 100 mg/dLNear Optimal/Above Optimal LDL: 110- 129 mg/dLBorderline High LDL: 130-159 mg/dLHigh LDL: 160-189 mg/dLVery High LDL: greater than or equal to 190 mg/dL HDL Cholesterol 56 >40 mg/dL [facility] Comment:Desirable HDL: great er than 40 mg/dL Note: This HDL assay may give artificially low results in patients with liver disease. Blood Venous blood specimen / Unknown 12/16/2023 9:46 AM EDT 12/16/2023 11:13 AM EDT Tucker Name LAB BLOOD ORDERABLES Final Resul t [facility] [address] [place] [address] [phone] * HM PAP/HPV (11/25/2022 2:19 PM EDT) Historical Provider HEALTH MAINTENANCE Final Result from Last 3 Months or Most Recently Relevant to Health Maintenance Insurance [facility] CARE < 65 [facility] Care Teams Furnace And Wash Equipment Operator Relationship Specialty Start Date End Date Name, MD Tucker [address] [place] [address] PCP - General Family Medicine 08/13/15 Malik Quiles [address] [place] [address] Dental Manager Psychology 05/12/24
--- OUTSIDE RECORDS SUMMARY | 2025-03-08 18:08 | XMS_ITS | Encounter Summary ---
Author Organization [employer] Address [address] [facility] 7t [place] [address] Care Team Providers Care Director Agency & Strategic Partnerships Name Role Phone Name, Tucker PEARSON Primary Care Provider [phone] Malik Quiles Unavailable Unavailable Reason for Visit * Reason Comments Med Change Request Encounter Details Date Type Department Care Team ([facility] Contact Info) Description 03/25/2024 Refill [facility] [address] [place], [place] [phone] Name, MD Tucker [address] [place] [address] Social History Tobacco Use Types Packs/Day Years [...] as of this encounter Care Teams Director Agency & Strategic Partnerships Relationship Specialty Start Date End Date Name, MD Tucker [address] [place] [address] PCP - General Family Medicine 08/13/15 Malik Quiles [address] [place] [address] Dental Avionics Systems Engineer 05/12/24 documented as of this encounter
--- OUTSIDE RECORDS SUMMARY | 2025-03-08 18:08 | XMS_ITS | Clinical Summary ---
Author Organization [address] Address [address] [place] [phone] Phone Care Team Providers Care Airframe And Powerplant Mechanic Name Role Phone Name, Tucker PEARSON Primary Care Provider [phone] Surgical History Surgery Date Site/Laterality Comments FLEXIBLE SIGMOIDOSCOPY 02/27/2009 PROCEDURE: [place] SIGMOIDOSCOPY FLX DX W/COLLJ SPEC BR/WA IF PFRMD; COMMENT: normal CHOLECYSTECTOMY 03/23/2009 PROCEDURE: [place] CHOLECYSTECTOMY OTHER SURGICAL HISTORY 03/23/2009 PROCEDURE: NJ COLPOSCOPY CERVIX UPPER/ADJACENT VAGINA; COMMENT: hasn't had pap since then GASTRIC BYPASS 03/23/2012 PROCEDURE: GASTRIC BYPASS FOR OBESIT SECTION 03/18/2016 PROCEDURE: HISTORICAL DELIVERY; COMMENT: intolerance OTHER SURGICAL HISTORY 10/2021 PROCEDURE: CERVICAL LEEP CONE BIOPSY SPCMN PATHOLOGY EX; COMMENT: for LINDA II - LEEP path negative Medical History Medical History Date Comments Morbid obesity ([facility] V24, [facility] V28) DX:Morbid obesity (HCC) Cholelithiasis DX:Cholelithiasi s Diabetes mellitus ([facility] V 24, [facility] V28) DX:Diabetes mellitus JOSE A (obstructive sleep apnea) DX :JOSE A (obstructive sleep apnea); COMMENT: resolved Depression DX:Depression; C OMMENT: well controlled RAD (reactive airway disease) DX :RAD (reactive airway disease) Tobacco abuse DX:Tobacco abuse ; COMMENT: stopped 12/02 Chronic back pain DX:Chronic lin k pain DVT, lower extremity ([facility]/ C V24, [facility] V28) DX:DVT, lower extremity (HCC ); COMMENT: [...] on file Sexual Orientation Not on file Last Filed Vital Signs Vital Sign Reading [...] Diabetes: Blood Sugar Control Test (HGBA1C) 04/25/2024 COVID-19 Vaccine ( season) 2024 01/28/2024, 04/01/2021, [...] (6 to 49 Years) Completed 12/11/2023, 08/17/2012 HIB Vaccines Aged Out [...] RESULTING AGENCY - 12/05/2022 6:26 AM EDT [id number] THINPREP PAP, IMAGED: NEGATIVE FOR SQUAMOUS INTRAEPITHELIAL [...] Health Maintenance Insurance [place]ICAID - [place] [facility] MEDICARE Member Subscriber Plan / Payer (Ef fective 2018-Present) Name:Nelly Lanier Relation to Subscriber:Self Name:Nelly Lanier Payer ID:[id number] Group ID:[id number] Type:Not on file Address: [address] [place] [phone] Care Teams Airframe And Powerplant Mechanic Relationship Specialty Start Date End Date Name, MD Tucker [address], [place] PCP - General Internal Medicine 03/09/19
--- OUTSIDE RECORDS SUMMARY | 2025-03-08 18:08 | XMS_ITS | Encounter Summary ---
Author Organization [employer] Address [address] [facility] 7t [place] [address] Care Team Providers Care Shaft Headman Name Role Phone Name, Tucker PEARSON Primary Care Provider [phone] Malik Quiles Unavailable Unavailable Reason for Visit * Reason Comments Med Refill Encounter Details Date Type Department Care Team ([facility] st Contact Info) Description 10/23/2024 Refill [facility] [address] [place], [place] [phone] Name, MD Tucker [address] [place] [address] Social History Tobacco Use Types Packs/Day Years [...] documented as of this encounter Care Teams Shaft Headman Relationship Specialty Start Date End Date Name, MD Tucker [address] [place] [address] PCP - General Family Medicine 08/13/15 Malik Quiles [address] [place] [address] Dental Remarketing Manager 05/12/24 documented as of this encounter
== END 2025-03-08 13:54 | disposition home or self-care (01) ==
LOC: HO.HPS 13:34
PROVIDERS: Visit Provider Internal Medicine
DX: J45.909 Unspecified asthma, uncomplicated (principal); E66.01 Morbid (severe) obesity due to excess calories
CPT/HCPCS: 99213

== ENCOUNTER → 2025-03-08 13:34 | Outpatient (BNVA) | payer OTHER, SELFPAY | PROVIDERS: Visit Provider Internal Medicine | DX: J45.909 Unspecified asthma, uncomplicated (principal); E66.01 Morbid (severe) obesity due to excess calories; Z79.899 Other long term (current) drug therapy; Z68.41 Body mass index [BMI] 40.0-44.9, adult | CPT/HCPCS: 99212 ==

== ENCOUNTER 2025-03-14 08:56 | Outpatient (AMB) | payer OTHER, SELFPAY ==
--- OUTSIDE RECORDS SUMMARY | 2025-03-14 09:22 | XMS_ITS | Encounter Summary ---
Author Organization [employer] Address [address] [facility] [address]t [place] [address] Care Team Providers Care Gambling Broker Name Role Phone Name, Tucker PEARSON Primary Care Provider [phone] Malik Quiles Unavailable Unavailable Encounter Details Date [...] on filedocumented in this encounter Care Teams Gambling Broker Relationship Specialty Start Date End Date Name, MD Tucker [address] [place] [address] PCP - General Family Medicine 08/13/15 Malik Quiles [address] [place] [address] Dental Real Estate Closing Coordinator 05/12/24 documented as of this encounter
--- OUTSIDE RECORDS SUMMARY | 2025-03-14 09:22 | XMS_ITS | Encounter Summary ---
Author Organization [employer] Address [address] [place] [address] 7t [place] [address] Care Team Providers Care Courtroom Deputy Name Role Phone Name, Tucker PEARSON Primary Care Provider [phone] Malik Quiles Unavailable Unavailable Encounter Details Date Type Department Care Team (Late st Contact Info) Description 10/13/2022 Orders Only [facility] [address] [place] [address] Geovanna Bradshaw LPN Social History Tobacco Use [...] on filedocumented in this encounter Care Teams Courtroom Deputy Relationship Specialty Start Date End Date Name, MD Tucker [address] [place] [address] PCP - General Family Medicine 08/13/15 Malik Quiles [address] [place] [phone] Dental Clam Digger 05/12/24 documented as of this encounter
--- OUTSIDE RECORDS SUMMARY | 2025-03-14 09:22 | XMS_ITS | Encounter Summary ---
Author Organization [employer] Address [address] [facility] [address] [place] [address] Care Team Providers Care Trimmer Press Clippings Name Role Phone Name, Tucker PEARSON Primary Care Provider [phone] Malik Quiles Unavailable Unavailable Encounter Details Date Type Department Care Team (Late st Contact Info) Description 05/24/2024 Orders Only [facility] [address] [place], [place] [phone] ProviderZahraa MD Social History Tobacco Use Types [...] documented as of this encounter Care Teams Trimmer Press Clippings Relationship Specialty Start Date End Date Name, MD Tucker [address] [place] [address] PCP - General Family Medicine 08/13/15 Malik Quiles [address] [place] [address] Dental Vice President Of Software Engineering 05/12/24 documented as of this encounter
--- OUTSIDE RECORDS SUMMARY | 2025-03-14 09:22 | XMS_ITS | Encounter Summary ---
Author Organization [employer] Address [address] [facility] 7t [place] [address] Care Team Providers Care Psychometrician Name Role Phone Name, Tucker PEARSON Primary Care Provider [phone] Malik Quiles Unavailable Unavailable Reason for Visit * Reason Comments Med Refill Encounter Details Date Type Department Care Team ([facility] st Contact Info) Description 10/23/2024 Refill [facility] [address] [place], [place] [phone] Name, MD Tucker [address] [place] [address] Social History Tobacco Use Types Packs/Day Years [...] documented as of this encounter Care Teams Psychometrician Relationship Specialty Start Date End Date Name, MD Tucker [address] [place] [address] PCP - General Family Medicine 08/13/15 Malik Quiles [address] [place] [address] Dental Hot Plate Plywood Press Operator 05/12/24 documented as of this encounter
--- OUTSIDE RECORDS SUMMARY | 2025-03-14 09:22 | XMS_ITS | Encounter Summary ---
Author Organization [employer] Address [address] [facility] 7t [place] [address] Care Team Providers Care Salesperson Surgical Appliances Name Role Phone Name, Tucker PEARSON Primary Care Provider [phone] Malik Quiles Unavailable Unavailable Reason for Visit * Reason Comments Med Refill Encounter Details Date Type Department Care Team ([facility] st Contact Info) Description 07/08/2022 Refill [facility] [address] [place], [place] [phone] Name, MD Tucker [address] [place], [place] [phone] Social History Tobacco Use Types Packs/Day Years [...] on filedocumented in this encounter Care Teams Salesperson Surgical Appliances Relationship Specialty Start Date End Date Name, MD Tucker [address] [place] [address] [phone] PCP - General Family Medicine 08/13/15 Malik Quiles [address] [place] [address] Dental Vice President Corporate Communications 05/12/24 documented as of this encounter
--- OUTSIDE RECORDS SUMMARY | 2025-03-14 09:22 | XMS_ITS | Encounter Summary ---
Author Organization [employer] Address [address] [facility] [address] [place] [address] Care Team Providers Care Supervisor Firearms Name Role Phone Name, Tucker PEARSON Primary Care Provider [phone] Malik Quiles Unavailable Unavailable Reason for Visit * Reason Comments Med Change Request Encounter Details Date Type Department Care Team ([facility] Contact Info) Description 03/25/2024 Refill [facility] [address] [place], [place] [phone] Name, MD Tucker [address] [place] [address] Social History Tobacco Use Types Packs/Day Years [...] documented as of this encounter Care Teams Supervisor Firearms Relationship Specialty Start Date End Date Name, MD Tucker [address] [place] [address] PCP - General Family Medicine 08/13/15 Malik Quiles [address] [place] [address] Dental Coil Cleaner 05/12/24 documented as of this encounter
--- OUTSIDE RECORDS SUMMARY | 2025-03-14 09:22 | XMS_ITS | Clinical Summary ---
Author Organization [address] Address [address] [place] [phone] Phone Care Team Providers Care Digital Music Instructor Name Role Phone Name, Tucker PEARSON Primary Care Provider [phone] Surgical History Surgery Date Site/Laterality Comments FLEXIBLE SIGMOIDOSCOPY 02/27/2009 PROCEDURE: FL SIGMOIDOSCOPY FLX DX W/COLLJ SPEC BR/WA IF PFRMD; COMMENT: normal CHOLECYSTECTOMY 03/23/2009 PROCEDURE: FL CHOLECYSTECTOMY OTHER SURGICAL HISTORY 03/23/2009 PROCEDURE: FL COLPOSCOPY CERVIX UPPER/ADJACENT VAGINA; COMMENT: hasn't had pap since then GASTRIC BYPASS 03/23/2012 PROCEDURE: GASTRIC BYPASS FOR OBESIT SECTION 03/18/2016 PROCEDURE: HISTORICAL DELIVERY; COMMENT: intolerance OTHER SURGICAL HISTORY 10/2021 PROCEDURE: CERVICAL LEEP CONE BIOPSY [facility] PATHOLOGY EX; COMMENT: for LINDA II - LEEP path negative Medical History Medical History Date Comments Morbid obesity ([facility] V24, [facility] V28) DX:Morbid obesity (HCC) Cholelithiasis DX:Cholelithiasi s Diabetes mellitus ([facility] V 24, [facility] V28) DX:Diabetes mellitus JOSE A (obstructive sleep apnea) DX :JOSE A (obstructive sleep apnea); COMMENT: resolved Depression DX:Depression; C OMMENT: well controlled RAD (reactive airway disease) DX :RAD (reactive airway disease) Tobacco abuse DX:Tobacco abuse ; COMMENT: stopped 12/02 Chronic back pain DX:Chronic lin k pain DVT, lower extremity ([facility]/ C V24, [facility] V28) DX:DVT, lower extremity (HCC ); [...] RESULTING AGENCY - 12/05/2022 6:26 AM EDT [id number] THINPREP PAP, IMAGED: NEGATIVE FOR SQUAMOUS INTRAEPITHELIAL [...] Health Maintenance Insurance MEDICAID - [place] [facility] MEDICARE Member Subscriber Plan / Payer (Ef fective 2018-Present) Name:Nelly Lanier Relation to Subscriber:Self Name:Nelly Lanier Payer ID:[id number] Group ID:[id number] Type:Not on file Address: [address] [place] [phone] Care Teams Digital Music Instructor Relationship Specialty Start Date End Date Name, MD Tucker [address] [place], [place] PCP - General Internal Medicine 03/09/19
--- OUTSIDE RECORDS SUMMARY | 2025-03-14 09:22 | XMS_ITS | Encounter Summary ---
Author Organization [employer] Address [address] [facility] 7t [place] [address] Care Team Providers Care Line Construction Superintendent Name Role Phone Name, Tucker PEARSON Primary Care Provider [phone] Malik Quiles Unavailable Unavailable Reason for Visit * Reason Comments Med Change Request Encounter Details Date Type Department Care Team ([facility] Contact Info) Description 03/25/2024 Refill [facility] [address] [place], [place] [phone] Name, MD Tucker [address] [place] [address] Social History Tobacco Use Types Packs/Day Years [...] documented as of this encounter Care Teams Line Construction Superintendent Relationship Specialty Start Date End Date Name, MD Tucker [address] [place] [address] PCP - General Family Medicine 08/13/15 Malik Quiles [address] [place] [address] Dental Settlement Clerk 05/12/24 documented as of this encounter
--- OUTSIDE RECORDS SUMMARY | 2025-03-14 09:22 | XMS_ITS | Clinical Summary ---
Author Organization [employer] Address [address] [facility] 7[address] [place] [address] Care Team Providers Care Injection Press Operator Name Role Phone Name, Tucker PEARSON Primary Care Provider [phone] Malik Quiles Unavailable Unavailable Allergies Active Allergy [...] 01/26/2023 01/26/2023 Severe obesity (BMI >= 40) (CMS/[facility]) 01/26/2023 01/26/2023 History of gastric bypass 07/04/2022 [...] Type Department Care Team Description 02/23/2025 Telephone [facility] [address] [place] [phone] Tucker Omalley MD Prior Authorization 01/28/2025 Orders Only [facility] [address] [place] [phone] Tucker Omalley MD 01/28/2025 Refill [facility] [address] [place] [phone] Tucker Omalley MD 01/19/2025 Telephone [facility] [address] [place] [phone] Tucker Omalley MD Medication Question 01/14/2025 Refill [facility] [address] [place] [phone] Kriss Bhatti NP Cough in adult 12/28/2024 10:30 AM EDT Office Visit [facility] [address] [place] [phone] NameTucker MD Severe obesity (BMI >= 40) (CMS/[facility]) ([facility]) (Primary Dx); Rash; Seborrheic keratosis; Anemia, unspecified type 12/28/2024 Travel 12/27/2024 Telephone [facility] [address] [place] [phone] Tra Momin MA chart prep 12/21/2024 Travel 12/17/2024 Refill [facility] [address] [place] [phone] NameTucker MD from Last 3 Months Immunizations Immunization Administration Dates Next Due Hep B, adult 05/10/2019,08/17/2018 Influenza Injectable Quadriv alant Preservative Free IIV4 MDCK 12/19/2022,05/02/2022,02/25/2021 Influenza injectable quadriv alent IIV4 with preservative 12/23/2017 Influenza injectable quadriv alent preservative free 03/17/2019 Influenza, IIV3, injectable 11/30/2014,1 05/02/2013,01/24/2013,02/10,01/05/2010,02/27/2009 Influenza, seasonal, injecta ble, preservative free 12/11/2023,01/18/2016 Novel [id number], preservative-free 02/27/2009 Pfizer Covid-19 Vaccine 12+ 01/28/2024 [...] AM EST Narrative 01/30/2025 3:42 PM EST [address] [place] [address] Mammography Report Signed Patient: Nelly Lanier MR#: [id number] [birth year] : 1985 Acct:[id number] Age/Sex: 39 / F ADM Date: 01/28/25 Loc: HO.MAMMO Attending Dr: Tucker Omalley MD Ordering Physician: Tucker Omalley MD Results: 0Incomplet e- Need Additional Imaging Evaluation Date of Service: 01/28/25 Follow Up: Additional Imagi ng Procedure(s): MM tomosynthesis screening BI Accession Number(s): [id number] cc: Tucker Omalley MD Reason For Exam: [...] 01/30/25 1539 DD/ 0800 TD/TT: 01/28/25 0817 Bilingual Legal Assistant: Procedure Note Chasity, Image - 01/30/2025 [facility] [address] [place] [address] Mammography Report Signed Patient: Dashawn Lanier#: [id number] [birth year] : 1985Acct:[id number] Age/Sex: 39 / FADM Date: 01/28/25 Loc: HO.MAMMO Attending Dr: Tucker Omalley MD Ordering Physician: Tucker Omalley MDResults: 0Incomplet e- Need Additional Imaging Evaluation Date of Service: 01/28/25Follow Up: Additional Imagi ng Procedure(s): MM tomosynthesis screening BI Accession Number(s): [id number] cc: Tucker Omalley MD Reason For Exam: [...] 01/30/25 1539 DD/ 0800 TD/TT: 01/28/25 0817 Bilingual Legal Assistant: us Tucker Name MD ALVARENGA BI PROCEDURES Edited Result - Final * (ABNORMAL) CBC auto differential (12/30/2024 9:12 AM EDT) White Blood Count 6.9 4.8 - 10.8 X10*3/uL [facility] Red Blood Count 4.96 4.20 - 5.50 X10*6/uL [facility] Hemoglobin 12.1 12.0 - 16.0 g/dl [facility] Hematocrit 38.3 37.0 - 47.0 % [facility] Mean Corpuscular Volume 77.2(L) 80.0 - 98.0 fL [facility] Mean Corpuscular Hemoglobin 24.4(L) 27.0 - 33.0 pg [facility] Mean Corpuscular HGB Conc 31.6 31.0 - 35.0 g/dl [facility] Red Cell Distribution Width 17.2(H) 11.0 - 16.0 % [facility] Platelet Count 176 160 - 400 X10*3/uL [facility] Neutrophils Percent Auto 73.1(H) 45 - 73 % [facility] Imm Gran Pct Auto 0.4 0.0 - 0.4 % [facility] Lymphocytes Percent Auto 16.2(L) 20 - 40 % [facility] Monocytes Percent Auto 6.8 2 - 11 % [facility] Eosinophils Percent Auto 3.2 0 - 4 % [facility] Basophils Percent Auto 0.3 0 - 2 % [facility] NRBC Pct Auto 0.0 0.0 - 0.2 /100WBC [facility] Neutrophils Absolute Auto 5.0 2.0 - 8.3 x10*3/uL [facility] Imm Gran Abs Auto 0.03 0.00 - 0.03 X10*3/uL [facility] Lymphocytes Absolute Auto 1.1(L) 1.2 - 4.9 X10*3/uL [facility] Monocytes Absolute Auto 0.5 0.1 - 1.2 X10*3/uL [facility] Eosinophils Absolute Auto 0.2 0.0 - 0.4 X10*3/uL [facility] Basophils Absolute Auto 0.0 0.0 - 0.2 X10*3/uL [facility] NRBC Abs Auto 0.000 0.0 - 0.012 X10*3/uL [facility] Blood Venous blood specimen / Unknown 12/30/2024 9:12 AM EDT 12/30/2024 11:16 AM EDT us Tucker Omalley MD LAB BLOOD ORDERABLES Final Resul t Performing Organization Address City/[facility]/ZIP Co de Phone Number [facility] [address] [place] [phone] * Ferritin (12/30/2024 9:12 AM EDT) Ferritin 12 10 - 250 ng/mL [facility] Blood Venous blood specimen / Unknown 12/30/2024 9:12 AM EDT 12/30/2024 11:32 AM EDT us Tucker Omalley MD LAB BLOOD ORDERABLES Final Resul t Performing Organization Address [facility]/ZIP Co de Phone Number [facility] [address] [place] [phone] * (ABNORMAL) Lipid Panel, Standard (12/16/2023 9:46 AM EDT) Triglycerides 92 <150 mg/dL [facility] Comment:Desirable Triglyceri de: less than 150 mg/dLBorderline High Triglyceride 150-199 mg/dLHigh Triglyceride: 200-499 mg/dLVery High Triglyceride: greater than or equal to 5OO mg/dL Cholesterol 175 <200 mg/dL [facility] Comment:Desirable Cholestero l: less than 200 mg/dLBorderline High Cholesterol: 200-239 mg/dLHigh Cholesterol: greater than 239 mg/dL LDL Cholesterol Calculated 101(H) <100 mg/dL [facility] Comment:Desirable LDL: less than 100 mg/dLNear Optimal/Above Optimal LDL: 110- 129 mg/dLBorderline High LDL: 130-159 mg/dLHigh LDL: 160-189 mg/dLVery High LDL: greater than or equal to 190 mg/dL HDL Cholesterol 56 >40 mg/dL [facility] Comment:Desirable HDL: great er than 40 mg/dL Note: This HDL assay may give artificially low results in patients with liver disease. Blood Venous blood specimen / Unknown 12/16/2023 9:46 AM EDT 12/16/2023 11:13 AM EDT Tucker Name LAB BLOOD ORDERABLES Final Resul t [facility] [address] [place] [phone] * HM PAP/HPV (11/25/2022 2:19 PM EDT) Historical Provider HEALTH MAINTENANCE Final Result from Last 3 Months or Most Recently Relevant to Health Maintenance Insurance [facility] < 65 [facility] Care Teams Injection Press Operator Relationship Specialty Start Date End Date Name, MD Tucker [address] [place] [address] PCP - General Family Medicine 08/13/15 Malik Quiles [address] [place] [address] Dental Billet Header 05/12/24
--- NOTE | 2025-03-14 09:31 | A.OFFVIS_ITS ---
Intake Visit Reasons: MRI review for low back, Bilateral hand numbness, Right knee pain and giving way Intake Note: Nelly is a 39 year old female who presents with complaints of progressively worsening low back pain which radiates down her right leg. The patient states that at times it feels like ?electricity? shooting down to her right foot. She also reports intermittent weakness in her right leg. The patient states that she has had numbness and tingling in both of her hands, right greater than left, for several years. She states that she may have had an EMG of her right hand that showed ?carpal tunnel syndrome? several years ago. She also reports progressively worsening right knee pain and giving way. Most of the pain is along the medial aspect of her right knee. She has failed the last 6 weeks of conservative treatment which has included Tylenol, anti-inflammatory medicines, a home exercise program and physical therapy exercises. Allergies No Known Allergies (No Known Allergies*) Allergy (Verified 03/08/25 13:58) Medication List - Last Reconciled 03/14/25 by Romulo Tate MD acetaminophen (Tylenol Extra Strength) 500 mg PO Q6H PRN acetaminophen ER 650 mg PO Q12H albuterol sulfate 90 mcg/actuation (Ventolin HFA) 2 puffs inhalation Q4-6H PRN 30 days calcium citrate-vitamin D3 500 mg-12.5 mcg (500 unit) tabs PO ferrous sulfate 324 mg PO DAILY fluticasone propion-salmeterol 500-50 mcg/dose (Wixela Inhub) 1 inh inhalation BID fluticasone propionate 50 mcg/actuation intranasal inhalational spacing device (Compact Space Chamber) As directed lorazepam 0.5 mg PO DAILY PRN omeprazole 20 mg PO DAILY sertraline 200 mg PO QAM tirzepatide (weight loss) (Zepbound) 12.5 mg subcut QWEEK zolpidem 5 mg PO BEDTIME PRN PFSH Medical History JOSE A (obstructive sleep apnea) Allergic rhinitis Bronchitis JOSE A on CPAP Diabetes mellitus JOSE A on CPAP Morbid obesity 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 Social History Alcohol intake: never Patient Tobacco Use Status: Former Tobacco user Physical Exam Back/Spine/Pelvis Other: Low back examination shows right-sided paraspinal muscle tenderness, pain with range of motion, positive straight leg raise test on the right at 70 degrees Extrem Other: Right knee examination shows a minimal effusion, mild crepitus with range of motion, tenderness along her medial joint line, positive Dilcia's test, no instability Bilateral hand examination shows positive Tinel's test over her carpal tunnels, mild thenar muscle wasting, decreased sensation to light touch along her median nerve distributions Results Reviewed Results Reviewed: MRI of the patient's lumbar spine shows right subarticular and foraminal broad- based disc herniation, L4-L5 encroaching the right L5 nerve root Assessment & Plan Assessment & Plan (1) Tear of medial meniscus of right knee: Code(s): S83.241A - Other tear of medial meniscus, current injury, right knee, initial encounter Category: Medical (2) Bilateral hand numbness: Code(s): R20.0 - Anesthesia of skin Category: Medical (3) Low back pain radiating to both legs: Code(s): M54.50 - Low back pain, unspecified; M79.604 - Pain in right leg; M79.605 - Pain in left leg Category: Medical Plan Ms. Lanier presents with progressively worsening right knee pain and mechanical symptoms most likely due to a medial meniscus tear. Thus, I will send the patient for an MRI of her right knee for further evaluation. I will see her back once the MRI is completed to discuss the findings and treatment options. I will also refer her to our neurosurgery department for further evaluation of her low back pain. I will also send the patient for nerve conduction studies of her bilateral upper extremities to confirm her carpal tunnel syndrome. I will have her follow up with our hand specialist. Feel free to call me at any time should questions regarding her orthopedic management arise. I spent 21 minutes in reviewing the patient's records and imaging studies, seeing the patient and documenting in the medical record. Orders: Orders NE nerve conduction velocity 03/15/25 R20.0 - Anesthesia of skin MR knee RT wo con 03/15/25 S83.241A - Other tear of medial meniscus, current injury, right knee, initial encounter NE electromyogram (EMG) 03/15/25 R20.0 - Anesthesia of skin Referrals Neuro Spine Referral M54.50 - Low back pain, unspecified, M79.604 - Pain in right leg, M79.605 - Pain in left leg Coding Level of Care Code Est Pt Level 3 (86698) Add On Problem Visit Only Diagnoses Tear of medial meniscus of right knee S83.241A Bilateral hand numbness R20.0 Low back pain radiating to both legs M54.50; M79.604; M79.605
== END 2025-03-14 09:50 | disposition home or self-care (01) ==
LOC: HO.HOS 08:56
PROVIDERS: Visit Provider Orthopaedic Surgery
DX: S83.241A Other tear of medial meniscus, current injury, right knee, initial encounter (principal); R20.0 Anesthesia of skin; M54.50 Low back pain, unspecified; M79.604 Pain in right leg; M79.605 Pain in left leg
CPT/HCPCS: 99213; G2211

== ENCOUNTER → 2025-03-14 08:56 | Outpatient (BNVA) | payer OTHER, SELFPAY | PROVIDERS: Visit Provider Orthopaedic Surgery | DX: S83.241A Other tear of medial meniscus, current injury, right knee, initial encounter (principal); R20.0 Anesthesia of skin; M54.50 Low back pain, unspecified; M79.604 Pain in right leg; M79.605 Pain in left leg; X58.XXXA Exposure to other specified factors, initial encounter; Y92.9 Unspecified place or not applicable; Y93.9 Activity, unspecified; Y99.9 Unspecified external cause status | CPT/HCPCS: 99212 ==